=== PATIENT | female | born 1940 | race Caucasian/White ===

== ENCOUNTER → 2018-03-21 13:06 | Outpatient (CLI) | payer MEDICARE, SELFPAY | PROVIDERS: Family Provider Family Medicine; PCP Family Medicine; Visit Provider Internal Medicine | DX: I87.312 Chronic venous hypertension (idiopathic) with ulcer of left lower extremity (principal); L97.922 Non-pressure chronic ulcer of unspecified part of left lower leg with fat layer exposed; R53.1 Weakness | CPT/HCPCS: 99213 ==

== ENCOUNTER → 2018-04-04 14:11 | Outpatient (CLI) | payer MEDICARE, SELFPAY ==
--- NOTE | 2018-04-04 | OV.WND_ITS ---
Progress Note Details Patient Name: Deja No Patient Number: [id number] PatientPatientDate: 04/04/2018 Clinician: Rosalind Romero Physician / Spinning Frame Changer: Virgilio Ortega SUBJECTIVE Chief Complaint This information was obtained from the patient Wound on left lower leg. Allergies metformin, Sulfa (Sulfonamide Antibiotics) (Severity: Moderate, Reaction: Hives ), glimepiride HPI This information was obtained from the patient 04/04/18. Seen by Dr. Ortega. The patient and her report recurrence of drainage from the recently healed, chronic left lower leg venous ulcer that was first noticed about 2 days ago. There's not report of pain or increased leg swelling and they've been changing the dressing every 3 days. The ulcer is though to be related to a remote history of vein surgery for varicose veins which she still suffers from. 03/21/18. Seen by Dr. Ortega. The patient does not report pain nor significant drainage associated with the chronic left lower leg venous ulcer since her last visit. 02/28/18. Seen by Dr. Ortega. The patient does not report pain nor significant drainage associated with the chronic left lower leg venous ulcer since her last visit. 02/17/18. Seen by Dr. Ortega. The patient does not report pain nor significant drainage associated with the chronic left lower leg venous ulcer since her last visit. 02/07/18. Seen by Dr. Ortega. The patient does not report pain or swelling associated with chronic left lower venous ulcer however there is some yellow drainage on the overlying dressing noted today. The patient's ulcer has been managed palliatively over the past year and originally is felt to be due to her history of vein surgery many years ago. 01/17/18. Seen by Dr. Ortega. The patient does not report pain nor significant drainage associated with the chronic left lower leg venous ulcer since her last visit. 12/27/17. Seen by Dr. Ortega. The patient does not report pain nor significant drainage associated with the chronic left lower leg venous ulcer since her last visit. 12/06/17. Seen by Dr. Ortega. The patient does not report pain nor significant drainage associated with the chronic left lower leg venous ulcer since her last visit. 11/14/17. Seen by Chepe Villa PA-C. The patient reports no increase in drainage from her left leg venous ulcers. 10/25/17. Seen by Dr. Ortega. The patient does not report pain nor significant drainage associated with the chronic left lower leg venous ulcer since her last visit. Of note, we are managing the ulcer and a palliative manner as it has shown little potential for healing of the past few months. 10/08/17. Seen by Dr. Ortega. The patient does not report pain nor significant drainage associated with the chronic left lower leg venous ulcer since her last visit. 10/03/17. Seen by Dr. Ortega. The patient completed her course of doxycycline without reported adverse side effects and feels that the cellulitis associated with chronic left lower leg venous ulcer has improved over the past few days. 09/25/17. Seen by Dr. Ortega. The patient reports some mild discomfort associated with the chronic left lower leg venous ulcer and her wound culture from the last visit grew pansensitive MSSA. She is not currently on antibiotics for this and does not report fevers or feeling unwell. 09/20/17. Seen by Dr. Ortega. The patient's is concerned that the chronic left lower leg venous ulcer has started to enlarge and is now draining over the past few days. The patient does not report pain at the site nor fevers or feeling unwell in general. This ulcer's occurred at the site of previous vein stripping and has been managed palliatively over the past year as it is unlikely to heal with her current wound care measures. Surgical repair such as a skin graft has been offered however the patient does not wish to go this route. 08/30/17. Seen by Dr. Ortega. The patient does not report pain or increased drainage associated with the chronic left lower leg venous ulcer since her last visit. 08/16/17. Seen by Chepe Villa PA-C. The patient reports no increase in drainage from her left lower leg ulcer. 08/06/17. Seen by Chepe Villa PA-C. The patient reports no change his her ulcer's appearance or drainage since her last evaluation. 07/30/17. Seen by Chepe Villa PA-C. The patient reports no increase in drainage from her left lower leg ulcer. 07/23/17. Seen by Dr. Ortega. The patient does not report pain or increased drainage associated with the chronic left lower leg venous ulcer since her last visit and she's tolerated negative pressure wound therapy without difficulty. She also does not report any problems regarding the compression wrap that's treating left lower leg chronic venous hypertension. 07/19/17. Seen Dr. Ortega. The patient does not report pain nor drainage associated with the since her last visit. Also, she does not report any problems regarding that wound vac. 07/16/17. Seen Dr. Ortega. The patient does not report pain nor drainage associated with the since her last visit. And she does not report any problems regarding that wound vac. 07/12/17. Seen Dr. Ortega. The patient does not report pain nor drainage associated with the since her last visit. And she does not report any problems regarding that wound vac. 07/09/17. Seen by Dr. Ortega. The patient is not report pain or significant drainage associated with the left lower leg venous ulcer since her last visit. 07/05/17. Seen by Dr. Ortega. The patient does not report pain associated with the chronic left lower leg venous ulcer nor does she report any problems with the compression wrap was applied last week. Her wound culture grew Staph caprae without sensitivities yet being reported. 07/02/17. Seen by Dr. Ortega. The patient does not report pain associated with the chronic left lower leg venous ulcer nor does she report any problems with the compression wrap was applied last week. 06/28/17. Seen by Dr. Ortega. The patient does not report significant pain nor increased drainage associated with the chronic left lower leg venous ulcer. 06/21/17. Seen by Dr. Ortega. The patient does not report significant pain nor increased drainage associated with the chronic left lower leg venous ulcer and she tolerated her compression wrap that's treating chronic venous hypertension in the leg without difficulty. 06/18/17. Seen by Dr. Ortega. She also does not report pain nor significant drainage associated with this ulcer. 06/14/17. Seen by Dr. Ortega. The patient does not report any additional bleeding associated with the chronic left lower leg venous ulcer following the acute hemorrhage noted at her last visit. She also does not report pain nor significant drainage associated with this ulcer. 06/11/17. Seen by Dr. Ortega. The patient does not report significant pain or increased drainage associated with the chronic left lower leg venous ulcer since her last visit. 06/07/17. Seen by Dr. Ortega. The patient reports some increased generalized myalgias and states that the left lower leg may be more painful than last week however she does not report fevers or increased leg swelling. She tolerated the wound VAC without difficulty and has completed her course of Augmentin that was treating cellulitis associated with the chronic left lower leg venous ulcer. 06/04/17. Seen by Dr. Ortega. The patient does not report pain or significant drainage associated with the chronic left lower leg venous ulcer and she's now on Augmentin for the recent Staph caprae positive wound culture which has been grown on a number of occasions previously. She does not report adverse side effects of the Augmentin and her feels the redness and leg swelling have improved since her last visit. 05/31/17. Seen by Dr. Ortega. The patient does not report pain or significant drainage or pain associated with the chronic left lateral lower leg venous ulcer over the past week nor does she report fevers or feeling unwell. Her last culture was 2 months ago which grew Staph caprae without sensitivities reported. 05/24/17. Seen by Dr. Ortega. The patient's does not report pain or significant drainage associated with the chronic left lateral lower leg venous ulcer over the past week. Her MRI shows some associated with the chronic subcutaneous tissue however no obvious abscesses for osteomyelitis. She continues to wear a compression stocking to address the edema in the leg as well. 05/17/17. Seen by Dr. Ortega. The patient reports some continued pain associated with the left lateral lower leg venous ulcer over the past few days. Home health has been applying topical gentamicin to the ulcer and she does not report fevers or feeling unwell. She does note there's also some discomfort along the medial side of the left lower leg. 05/10/17. Seen by Dr. Ortega. The patient continues to report some discomfort associated with the the left lower leg venous ulcer since her last visit and has tolerated antibiotics which are treating a wound infection without reporting adverse side effects. 05/03/17. Seen by Dr. Ortega. The patient's reports purulent drainage from a new left lower leg ulcer that is located between the 2 recent nonpressure ulcers that we have been managing on the lateral side the leg. The patient does not report pain nor fevers however she does state that she had 2 vein stripping procedures many years ago and both legs. She also did not tolerate the compression stockings that they purchased to treat the left leg chronic venous hypertension. 04/29/17. Seen by Chepe Villa PA-C. The patient presents urgently today for evaluation of a new draining wound on her left anterior leg. It was noted to be draining purulent material which began today and has constantly drained. 04/26/17. Seen by Chepe Villa PA-C. The patient has received her new [employer] compression garments and reports that they are too small and too tight. She was measured in clinic and they were custom constructed. 04/16/17. Seen by Dr. Ortega. The patient does not report pain or significant drainage associated with the chronic right lower leg venous ulcers and she's tolerating the compression wrap without difficulty. 04/11/17. Seen by Dr. Ortega. The patient does not report pain nor increased drainage associated with the 2 left lower leg venous ulcers since her last visit and she' s tolerating compression therapy without difficulty. 04/05/17. Seen by Dr. Ortega. The patient does not report any new issues regarding her chronic left lower leg venous ulcers. 03/29/17. Seen by Dr. Ortega. The patient does not report pain nor increased drainage associated with the 2 left lower leg venous ulcers since her last visit. She's tolerating negative pressure wound therapy without difficulty. 03/22/17. Seen by Dr. Ortega. The patient does not report problems regarding her wound VAC that has been placed on the chronic left lower leg venous ulcers. 03/15/17. Seen by Dr. Ortega. The patient does not report problems regarding her wound VAC that has been placed on the chronic left lower leg venous ulcers. She does not report pain associated with ulcers and is wearing her compression stocking to address the chronic lower leg edema. 03/13/17. Seen by Dr. Ortega. The patient does not report pain nor significant drainage associated with the chronic left lower leg nonpressure ulcers since her last visit. 03/08/17. The patient does not report pain nor significant drainage associated with the left lower leg nonpressure ulcer over the past week. She's wearing her compression stocking as recommended however it appears the top edge was rolled and constricted the venous return resulting in increased leg edema. 03/01/17. The patient does not report pain nor significant drainage associated with the left lower leg nonpressure ulcers and she continues on antibiotics for the strep positive culture taken from the distal ulcer at her last visit. She is also now taking a diuretic to help address his significant leg edema and has been wearing a compression stocking as recommended. 02/22/17. Seen by Dr. Ortega. The patient fell earlier this week and injured her face and right eye. She's quite distressed today and arrived without the wound vac that's treating the chronic left lower leg non-pressure ulcer in place. She does not report increased pain or drainage from the site but notes the distal ulcer previously healed has now recurred. She feels her legs are quite swollen and has not been able to wear her compression stockings. 02/08/17. Seen by Dr. Ortega. The patient does not report pain or drainage associated with the chronic left lower leg nonpressure ulcers nor does she report any problems with the wound VAC that's treating the proximal ulcer since last week.. 02/01/17. Seen by Dr. Ortega. The patient does not report pain or drainage associated with the chronic left lower leg nonpressure ulcers nor does she report any problems with the wound VAC that's treating the proximal ulcer. She took her last dose of doxycycline for the Strep A positive wound culture this morning and does not report adverse side effects. 01/25/17. Seen by Dr. Ortega. The patient does not report pain or drainage associated with the chronic left lower leg nonpressure ulcer nor does she report any problems with the wound VAC. She's completed a course of doxycycline at [facility] in the recent group B streptococcus positive wound culture. Of note, the staff report a new small lesion distal to the original one on the lateral aspect of the left lower leg. 01/18/17. Seen by Dr. Ortega. The patient does not report pain nor significant drainage in the wound VAC associated with the chronic left lower leg nonpressure ulcer.She continues on doxycycline the recent group A streptococcus positive wound culture without reporting adverse side effects. 01/16/17. Seen by Dr. Ortega. The patient reports minimal pain and drainage associated with the painful left lateral lower leg nonpressure ulcer over the past few days and she continues on antibiotics for the recent group A Strep positive culture. 01/10/17. Seen by Dr. Ortega. The patient reports decreased pain and drainage associated with the painful left lateral lower leg nonpressure ulcer over the past few days. Her culture from the last visit grew group A streptococcus. She does not report fevers nor feeling unwell in general. 01/03/17. Seen by Dr. Ortega. The patient returns to clinic with a painful left lateral lower leg non-pressure ulcer that she states started as a blister about one month ago. She report drainage and redness in the periwound area but feels this has improved somewhat since starting on Keflex a few days ago. She does not believe a culture was taken and she does not report fevers, feeling unwell, nor adverse side effects from the antibiotic. 08/21/16 Seen by Chepe Villa PA-C. The patient reports no drainage from her sacral pressure ulcer site since her last visit. She would like to pursue some kind of therapy for her lower extremity chronic venous hypertension that does not involve compression or elevation. 08/16/16. Seen by Dr. Ortega. The patient's new to our clinic and is rather difficult to elicit a coherent history. She reportedly has some erythema over the sacrum and was referred due to concern for a possible pressure ulcer. She does not report pain at the site nor drainage and has not been actively offloading the site to date. The patient state's she's quite active and mobilizes frequently throughout the day despite being limited due to severe kyphosis. She's actually more concerned about chronic bilateral lower leg edema that's been progressive over the past year however she does not report any blistering, drainage, or open wounds. Past Medical History This information was obtained from the patient Patient has a medical history of: Hypothyroidism Hypertension Degenerative joint disease Varicose Veins Hyperlipidemia B12 deficiency Whitt's esophagus Restless leg syndrome Complaints and Symptoms This information was obtained from the patient Patient complains of: General Notes: I have reviewed and concur with the Review of Systems and Past Family Social History documents completed by the clinician, I have reviewed and concur with the Wound Assessment document completed by the clinician Cardiovascular (Central/Peripheral): Lower extremity (leg) swelling Ear/Nose/Mouth/Throat: Hearing Loss / Aid Integumentary (Hair/Skin/Nails): Open Sore Musculoskeletal: Assistive Devices, Deformities, Muscle Pain Prior Wound History: Drainage, Erythema, Pain Psychiatric: Anxiety, Memory Loss Patient denies complaints or symptoms related to: Cardiovascular (Central): Irregular heart beat Cardiovascular (Central/Peripheral): Intermittent Claudication, Lower extremity (leg) resting pain Constitutional Symptoms (General Health): Chills, Fever Gastrointestinal (GI): Nausea / Vomiting, Stomach/abdominal pain Genitourinary (): Urinary Incontinence Hematologic/Lymphatic: Bleeding / Clotting Disorders, Bleeding Tendency Neurological: Loss of Protective Sensation Prior Wound History: Bleeding Psychiatric: Depression Respiratory: Oxygen Use, Shortness of Breath OBJECTIVE Constitutional BP elevated; Afebrile; Alert and in no distress. Frail appearing. Height/Length : 63 in (160.02 cm), Weight: 105.7 lbs (48.05 kgs), BMI: 18.7, Temperature: 97.7 ?F (36.5 ?C), Pulse: 61 bpm, Respiratory Rate: 18 breaths/min, Blood Pressure: 142/79 mmHg, Capillary Blood Glucose: 98 mg/dl, Pulse Oximetry: 97 %. Vital Signs Notes: Glucose per patient Respiratory: No respiratory distress. Even respirations and without use of accessory muscles.. Cardiovascular: 1+ left lower extremity edema. Integumentary (Hair, Skin) Mild periwound erythema without warmth. Refer to appropriate clinician wound documentation for this visit; left lower leg ulcer extends to subcut with base partially covered with pink granulation, remainder fibrin and slough. Wound #3 Left, Proximal, Lateral Leg is a chronic Full Thickness Venous Ulcer and has received a status of Not Healed. Subsequent wound encounter measurements are 0.7cm length x 0.5cm width x 0.3cm depth, with an area of 0.35 sq cm and a volume of 0.105 cubic cm. No tunneling has been noted. No sinus tract has been noted. No undermining has been noted. There is a scant amount of serous drainage noted which has no odor. The patient reports a wound pain of level 0/10. The wound margin is attached. Wound bed has No epithelialization, No eschar, Yes slough, Yes pink, firm granulation. The periwound skin moisture is normal. The periwound skin exhibited: Edema, Hemosiderosis. The periwound skin did not exhibit: Brawny Induration, Excoriation, Induration, Callus, Crepitus, Fluctuance, Friable, Rash, Atrophie Ferney, Cyanosis, Ecchymosis, Erythema, Pallor, Rubor. The temperature of the periwound skin is WNL. Periwound skin does not exhibit signs or symptoms of infection. Local Pulse is Palpable. General Notes: satellite wound is 0.2x0.1x0.1 Neurological: Cranial nerves grossly intact with symmetric function normal by informal observation.. ASSESSMENT Active Problems ICD-10 (Encounter Diagnosis) L97.922 - Non-pressure chronic ulcer of unspecified part of left lower leg with fat layer exposed (Encounter Diagnosis) L08.9 - Local infection of the skin and subcutaneous tissue, unspecified (Encounter Diagnosis) I87.312 - Chronic venous hypertension (idiopathic) with ulcer of left lower extremity PLAN Wound Orders: Wound #3 Left, Proximal, Lateral Leg Cleanser Cleanse Wound: - Normal saline and gauze. May use distilled water at home. May Shower. - Please keep covered in shower until you feel it is closed. Topical Treatments Antibiotic/Antimicrobial Ointment/Cream. - Gentamicin to wound bed. Dressings Cover and secure with: - Bordered dressing. May use bordered band aid. Nexcare Active is a preferred bandage to use. Change Dressing: - Twice a week. Additional Orders: Compression/Edema Control Knee-high gradient compression stockings. - Tetragrip E to both legs. On in the am, off at night. Please purchase personal compression stockings, light compression (20-30mmHg) from your local pharmacy. Follow-Up Appointments Return Appointment: - - One week. Scribing Attestation I attest, as the nurse, that I scribed these orders for the physician. Laboratory: Bacteria identified in Wound by Culture - #3 left leg I've reviewed the clinician's documentation and agree with the evaluation and plan as written. Also, the left lower leg venous ulcer has recurred and there's likely a mild, superficial infection. They'll start treating with topical gentamicin applied with dressing changes and we'll consider starting an oral antibiotic pending the culture results. She'll also continue t wear her compression stocking to treat chronic venous hypertension. Electronic Signature(s) Signed By: Date: Virgilio Ortega MD 04/06/2018 14:27:05 Entered By: Virgilio Ortega on 04/04/2018 15:13:10
== END ==
PROVIDERS: Family Provider Family Medicine; PCP Family Medicine; Visit Provider Internal Medicine
DX: I87.312 Chronic venous hypertension (idiopathic) with ulcer of left lower extremity (principal); L97.922 Non-pressure chronic ulcer of unspecified part of left lower leg with fat layer exposed; L08.9 Local infection of the skin and subcutaneous tissue, unspecified
CPT/HCPCS: 87070; 87075; 87077; 87147; 87186; 87205; 99212

== ENCOUNTER → 2018-04-11 15:28 | Outpatient (CLI) | payer MEDICARE, SELFPAY ==
--- NOTE | 2018-04-11 | OV.WND_ITS ---
Progress Note Details Patient Name: Deja No Patient Number: [id number] PatientPatientDate: 04/11/2018 Clinician: Anita Rodrigues Clinician Cosigner: Cyndi Ramirez Physician / Print Line Feeder: Michael Villa SUBJECTIVE Chief Complaint This information was obtained from the patient Wound on left lower leg. Allergies metformin, Sulfa (Sulfonamide Antibiotics) (Severity: Moderate, Reaction: Hives ), glimepiride HPI This information was obtained from the patient 04/11/18. Seen by Chepe Villa PA-C. The patient reports no increase in pain or drainage from her left lower leg ulcer. 04/04/18. Seen by Dr. Ortega. The patient and her report recurrence of drainage from the recently healed, chronic left lower leg venous ulcer that was first noticed about 2 days ago. There's not report of pain or increased leg swelling and they've been changing the dressing every 3 days. The ulcer is though to be related to a remote history of vein surgery for varicose veins which she still suffers from. 03/21/18. Seen by Dr. Ortega. The patient does not report pain nor significant drainage associated with the chronic left lower leg venous ulcer since her last visit. 02/28/18. Seen by Dr. Ortega. The patient does not report pain nor significant drainage associated with the chronic left lower leg venous ulcer since her last visit. 02/17/18. Seen by Dr. Ortega. The patient does not report pain nor significant drainage associated with the chronic left lower leg venous ulcer since her last visit. 02/07/18. Seen by Dr. Ortega. The patient does not report pain or swelling associated with chronic left lower venous ulcer however there is some yellow drainage on the overlying dressing noted today. The patient's ulcer has been managed palliatively over the past year and originally is felt to be due to her history of vein surgery many years ago. 01/17/18. Seen by Dr. Ortega. The patient does not report pain nor significant drainage associated with the chronic left lower leg venous ulcer since her last visit. 12/27/17. Seen by Dr. Ortega. The patient does not report pain nor significant drainage associated with the chronic left lower leg venous ulcer since her last visit. 12/06/17. Seen by Dr. Ortega. The patient does not report pain nor significant drainage associated with the chronic left lower leg venous ulcer since her last visit. 11/14/17. Seen by Chepe Villa PA-C. The patient reports no increase in drainage from her left leg venous ulcers. 10/25/17. Seen by Dr. Ortega. The patient does not report pain nor significant drainage associated with the chronic left lower leg venous ulcer since her last visit. Of note, we are managing the ulcer and a palliative manner as it has shown little potential for healing of the past few months. 10/08/17. Seen by Dr. Ortega. The patient does not report pain nor significant drainage associated with the chronic left lower leg venous ulcer since her last visit. 10/03/17. Seen by Dr. Ortega. The patient completed her course of doxycycline without reported adverse side effects and feels that the cellulitis associated with chronic left lower leg venous ulcer has improved over the past few days. 09/25/17. Seen by Dr. Ortega. The patient reports some mild discomfort associated with the chronic left lower leg venous ulcer and her wound culture from the last visit grew pansensitive MSSA. She is not currently on antibiotics for this and does not report fevers or feeling unwell. 09/20/17. Seen by Dr. Ortega. The patient's is concerned that the chronic left lower leg venous ulcer has started to enlarge and is now draining over the past few days. The patient does not report pain at the site nor fevers or feeling unwell in general. This ulcer's occurred at the site of previous vein stripping and has been managed palliatively over the past year as it is unlikely to heal with her current wound care measures. Surgical repair such as a skin graft has been offered however the patient does not wish to go this route. 08/30/17. Seen by Dr. Ortega. The patient does not report pain or increased drainage associated with the chronic left lower leg venous ulcer since her last visit. 08/16/17. Seen by Chepe Villa PA-C. The patient reports no increase in drainage from her left lower leg ulcer. 08/06/17. Seen by Chepe Villa PA-C. The patient reports no change his her ulcer's appearance or drainage since her last evaluation. 07/30/17. Seen by Chepe Villa PA-C. The patient reports no increase in drainage from her left lower leg ulcer. 07/23/17. Seen by Dr. Ortega. The patient does not report pain or increased drainage associated with the chronic left lower leg venous ulcer since her last visit and she's tolerated negative pressure wound therapy without difficulty. She also does not report any problems regarding the compression wrap that's treating left lower leg chronic venous hypertension. 07/19/17. Seen Dr. Ortega. The patient does not report pain nor drainage associated with the since her last visit. Also, she does not report any problems regarding that wound vac. 07/16/17. Seen Dr. Ortega. The patient does not report pain nor drainage associated with the since her last visit. And she does not report any problems regarding that wound vac. 07/12/17. Seen Dr. Ortega. The patient does not report pain nor drainage associated with the since her last visit. And she does not report any problems regarding that wound vac. 07/09/17. Seen by Dr. Ortega. The patient is not report pain or significant drainage associated with the left lower leg venous ulcer since her last visit. 07/05/17. Seen by Dr. Ortega. The patient does not report pain associated with the chronic left lower leg venous ulcer nor does she report any problems with the compression wrap was applied last week. Her wound culture grew Staph caprae without sensitivities yet being reported. 07/02/17. Seen by Dr. Ortega. The patient does not report pain associated with the chronic left lower leg venous ulcer nor does she report any problems with the compression wrap was applied last week. 06/28/17. Seen by Dr. Ortega. The patient does not report significant pain nor increased drainage associated with the chronic left lower leg venous ulcer. 06/21/17. Seen by Dr. Ortega. The patient does not report significant pain nor increased drainage associated with the chronic left lower leg venous ulcer and she tolerated her compression wrap that's treating chronic venous hypertension in the leg without difficulty. 06/18/17. Seen by Dr. Ortega. She also does not report pain nor significant drainage associated with this ulcer. 06/14/17. Seen by Dr. Ortega. The patient does not report any additional bleeding associated with the chronic left lower leg venous ulcer following the acute hemorrhage noted at her last visit. She also does not report pain nor significant drainage associated with this ulcer. 06/11/17. Seen by Dr. Ortega. The patient does not report significant pain or increased drainage associated with the chronic left lower leg venous ulcer since her last visit. 06/07/17. Seen by Dr. Ortega. The patient reports some increased generalized myalgias and states that the left lower leg may be more painful than last week however she does not report fevers or increased leg swelling. She tolerated the wound VAC without difficulty and has completed her course of Augmentin that was treating cellulitis associated with the chronic left lower leg venous ulcer. 06/04/17. Seen by Dr. Ortega. The patient does not report pain or significant drainage associated with the chronic left lower leg venous ulcer and she's now on Augmentin for the recent Staph caprae positive wound culture which has been grown on a number of occasions previously. She does not report adverse side effects of the Augmentin and her feels the redness and leg swelling have improved since her last visit. 05/31/17. Seen by Dr. Ortega. The patient does not report pain or significant drainage or pain associated with the chronic left lateral lower leg venous ulcer over the past week nor does she report fevers or feeling unwell. Her last culture was 2 months ago which grew Staph caprae without sensitivities reported. 05/24/17. Seen by Dr. Ortega. The patient's does not report pain or significant drainage associated with the chronic left lateral lower leg venous ulcer over the past week. Her MRI shows some associated with the chronic subcutaneous tissue however no obvious abscesses for osteomyelitis. She continues to wear a compression stocking to address the edema in the leg as well. 05/17/17. Seen by Dr. Ortega. The patient reports some continued pain associated with the left lateral lower leg venous ulcer over the past few days. Home health has been applying topical gentamicin to the ulcer and she does not report fevers or feeling unwell. She does note there's also some discomfort along the medial side of the left lower leg. 05/10/17. Seen by Dr. Ortega. The patient continues to report some discomfort associated with the the left lower leg venous ulcer since her last visit and has tolerated antibiotics which are treating a wound infection without reporting adverse side effects. 05/03/17. Seen by Dr. Ortega. The patient's reports purulent drainage from a new left lower leg ulcer that is located between the 2 recent nonpressure ulcers that we have been managing on the lateral side the leg. The patient does not report pain nor fevers however she does state that she had 2 vein stripping procedures many years ago and both legs. She also did not tolerate the compression stockings that they purchased to treat the left leg chronic venous hypertension. 04/29/17. Seen by Chepe Villa PA-C. The patient presents urgently today for evaluation of a new draining wound on her left anterior leg. It was noted to be draining purulent material which began today and has constantly drained. 04/26/17. Seen by Chepe Villa PA-C. The patient has received her new [employer] compression garments and reports that they are too small and too tight. She was measured in clinic and they were custom constructed. 04/16/17. Seen by Dr. Ortega. The patient does not report pain or significant drainage associated with the chronic right lower leg venous ulcers and she's tolerating the compression wrap without difficulty. 04/11/17. Seen by Dr. Ortega. The patient does not report pain nor increased drainage associated with the 2 left lower leg venous ulcers since her last visit and she' s tolerating compression therapy without difficulty. 04/05/17. Seen by Dr. Ortega. The patient does not report any new issues regarding her chronic left lower leg venous ulcers. 03/29/17. Seen by Dr. Ortega. The patient does not report pain nor increased drainage associated with the 2 left lower leg venous ulcers since her last visit. She's tolerating negative pressure wound therapy without difficulty. 03/22/17. Seen by Dr. Ortega. The patient does not report problems regarding her wound VAC that has been placed on the chronic left lower leg venous ulcers. 03/15/17. Seen by Dr. Ortega. The patient does not report problems regarding her wound VAC that has been placed on the chronic left lower leg venous ulcers. She does not report pain associated with ulcers and is wearing her compression stocking to address the chronic lower leg edema. 03/13/17. Seen by Dr. Ortega. The patient does not report pain nor significant drainage associated with the chronic left lower leg nonpressure ulcers since her last visit. 03/08/17. The patient does not report pain nor significant drainage associated with the left lower leg nonpressure ulcer over the past week. She's wearing her compression stocking as recommended however it appears the top edge was rolled and constricted the venous return resulting in increased leg edema. 03/01/17. The patient does not report pain nor significant drainage associated with the left lower leg nonpressure ulcers and she continues on antibiotics for the strep positive culture taken from the distal ulcer at her last visit. She is also now taking a diuretic to help address his significant leg edema and has been wearing a compression stocking as recommended. 02/22/17. Seen by Dr. Ortega. The patient fell earlier this week and injured her face and right eye. She's quite distressed today and arrived without the wound vac that's treating the chronic left lower leg non-pressure ulcer in place. She does not report increased pain or drainage from the site but notes the distal ulcer previously healed has now recurred. She feels her legs are quite swollen and has not been able to wear her compression stockings. 02/08/17. Seen by Dr. Ortega. The patient does not report pain or drainage associated with the chronic left lower leg nonpressure ulcers nor does she report any problems with the wound VAC that's treating the proximal ulcer since last week.. 02/01/17. Seen by Dr. Ortega. The patient does not report pain or drainage associated with the chronic left lower leg nonpressure ulcers nor does she report any problems with the wound VAC that's treating the proximal ulcer. She took her last dose of doxycycline for the Strep A positive wound culture this morning and does not report adverse side effects. 01/25/17. Seen by Dr. Ortega. The patient does not report pain or drainage associated with the chronic left lower leg nonpressure ulcer nor does she report any problems with the wound VAC. She's completed a course of doxycycline at [facility] in the recent group B streptococcus positive wound culture. Of note, the staff report a new small lesion distal to the original one on the lateral aspect of the left lower leg. 01/18/17. Seen by Dr. Ortega. The patient does not report pain nor significant drainage in the wound VAC associated with the chronic left lower leg nonpressure ulcer.She continues on doxycycline the recent group A streptococcus positive wound culture without reporting adverse side effects. 01/16/17. Seen by Dr. Ortega. The patient reports minimal pain and drainage associated with the painful left lateral lower leg nonpressure ulcer over the past few days and she continues on antibiotics for the recent group A Strep positive culture. 01/10/17. Seen by Dr. Ortega. The patient reports decreased pain and drainage associated with the painful left lateral lower leg nonpressure ulcer over the past few days. Her culture from the last visit grew group A streptococcus. She does not report fevers nor feeling unwell in general. 01/03/17. Seen by Dr. Ortega. The patient returns to clinic with a painful left lateral lower leg non-pressure ulcer that she states started as a blister about one month ago. She report drainage and redness in the periwound area but feels this has improved somewhat since starting on Keflex a few days ago. She does not believe a culture was taken and she does not report fevers, feeling unwell, nor adverse side effects from the antibiotic. 08/21/16 Seen by Chepe Villa PA-C. The patient reports no drainage from her sacral pressure ulcer site since her last visit. She would like to pursue some kind of therapy for her lower extremity chronic venous hypertension that does not involve compression or elevation. 08/16/16. Seen by Dr. Ortega. The patient's new to our clinic and is rather difficult to elicit a coherent history. She reportedly has some erythema over the sacrum and was referred due to concern for a possible pressure ulcer. She does not report pain at the site nor drainage and has not been actively offloading the site to date. The patient state's she's quite active and mobilizes frequently throughout the day despite being limited due to severe kyphosis. She's actually more concerned about chronic bilateral lower leg edema that's been progressive over the past year however she does not report any blistering, drainage, or open wounds. Family History This information was obtained from the patient Diabetes - Mother, Father, Sibling, Child, Heart Disease - Mother, Father, Hypertension - Mother, Father, Sibling, Mental Illness - Child Social History This information was obtained from the patient Former smoker, Caffeine Use - one cup a day, Children - 2, Lives in - private home with , Marital Status - , Mental health concerns, Tobacco Use - former Past Medical History This information was obtained from the patient Patient has a medical history of: Hypothyroidism Hypertension Degenerative joint disease Varicose Veins Hyperlipidemia B12 deficiency Whitt's esophagus Restless leg syndrome Complaints and Symptoms This information was obtained from the patient Patient complains of: General Notes: I have reviewed and concur with the Review of Systems and Past Family Social History documents completed by the clinician, I have reviewed and concur with the Wound Assessment document completed by the clinician Cardiovascular (Central/Peripheral): Lower extremity (leg) swelling Ear/Nose/Mouth/Throat: Hearing Loss / Aid Integumentary (Hair/Skin/Nails): Open Sore Musculoskeletal: Assistive Devices, Deformities, Muscle Pain Prior Wound History: Drainage, Erythema, Pain Psychiatric: Anxiety, Memory Loss Patient denies complaints or symptoms related to: Cardiovascular (Central): Irregular heart beat Cardiovascular (Central/Peripheral): Intermittent Claudication, Lower extremity (leg) resting pain Constitutional Symptoms (General Health): Chills, Fever Gastrointestinal (GI): Nausea / Vomiting, Stomach/abdominal pain Genitourinary (): Urinary Incontinence Hematologic/Lymphatic: Bleeding / Clotting Disorders, Bleeding Tendency Neurological: Loss of Protective Sensation Prior Wound History: Bleeding Psychiatric: Depression Respiratory: Oxygen Use, Shortness of Breath OBJECTIVE Constitutional Vital signs reviewed and noted. Well developed, lucid, and in no acute distress. . Height/Length: 63 in (160.02 cm), Weight: 100.6 lbs (45.73 kgs), BMI: 17.8, Temperature: 97.6 ?F (36.44 ?C), Pulse: 58 bpm, Respiratory Rate: 16 breaths/min, Blood Pressure: 137/77 mmHg, Pulse Oximetry: 95 %. Ears, Nose, Mouth, and Throat: Grossly intact. Respiratory: No respiratory distress. Even respirations and without use of accessory muscles.. Integumentary (Hair, Skin) Refer to appropriate clinician wound documentation for this visit; ulcer extends to subcutaneous fat layer. . Wound #3 Left, Proximal, Lateral Leg is a chronic Full Thickness Venous Ulcer and has received a status of Not Healed. Subsequent wound encounter measurements are 0.1cm length x 0.1cm width x 0.1cm depth, with an area of 0.01 sq cm and a volume of 0.001 cubic cm. No tunneling has been noted. No sinus tract has been noted. No undermining has been noted. There is a scant amount of serous drainage noted which has no odor. The patient reports a wound pain of level 0/10. The wound margin is attached. Wound bed has No epithelialization, No eschar, Yes slough, No granulation. The periwound skin moisture is normal. The periwound skin exhibited: Edema, Hemosiderosis. The periwound skin did not exhibit: Brawny Induration, Excoriation, Induration, Callus, Crepitus, Fluctuance, Friable, Rash, Atrophie Ira, Cyanosis, Ecchymosis, Erythema, Pallor, Rubor. The temperature of the periwound skin is WNL. Periwound skin does not exhibit signs or symptoms of infection. Local Pulse is Palpable. General Notes: Covered in dried drainage/slough. Psychiatric: Judgement and insight: Normal affect with normal thought pattern. Alert and oriented 3/3. Memory grossly intact.. Normal affect. Mood appropriate.. ASSESSMENT Active Problems ICD-10 (Encounter Diagnosis) L97.922 - Non-pressure chronic ulcer of unspecified part of left lower leg with fat layer exposed (Encounter Diagnosis) I87.312 - Chronic venous hypertension (idiopathic) with ulcer of left lower extremity PLAN Wound Orders: Wound #3 Left, Proximal, Lateral Leg Anesthetic Topical Xylocaine to wound bed. - Lidocaine in clinic only. Cleanser Cleanse Wound: - Normal saline and gauze. May use distilled water at home. May Shower. - Please keep covered in shower until you feel it is closed. Topical Treatments Antibiotic/Antimicrobial Ointment/Cream. - Gentamicin to wound bed. Dressings Cover and secure with: - Bordered dressing. May use bordered band aid. Nexcare Active is a preferred bandage to use. Change Dressing: - Saturday night OR Saturday morning. Additional Orders: Compression/Edema Control Knee-high gradient compression stockings. - Tetragrip E to both legs. On in the am, off at night. Please purchase personal compression stockings, light compression (20-30mmHg) from your local pharmacy. Follow-Up Appointments Return Appointment: - - One week. Other information: If you develop fever, chills, increased pain, drainage, redness or swelling please call our office. If after hours, respond to the ER. Should you experience any significant changes in your wound(s) or have any questions regarding your home care instructions please contact the wound center @ [phone]. If after hours, contact your primary care physician or go to the hospital emergency room. Scribing Attestation I attest, as the nurse, that I scribed these orders for the physician. I've reviewed the clinician's documentation and agree with the evaluation and plan as written. The patient's condition continues to be medically complex requiring continued and regular specialty wound care clinic visits. To that end we will continue with routine dressing changes and in clinic medical assessments including surveillance for bacterial infection as well as routine debridements of non-viable tissue when needed. Electronic Signature(s) Signed By: Date: Chepe Villa 04/14/2018 22:08:02 Entered By: Chepe Villa on 04/14/2018 21:12:42
== END ==
PROVIDERS: Family Provider Family Medicine; PCP Family Medicine; Visit Provider Physician Assistant
DX: I87.312 Chronic venous hypertension (idiopathic) with ulcer of left lower extremity (principal); L97.922 Non-pressure chronic ulcer of unspecified part of left lower leg with fat layer exposed
CPT/HCPCS: 99213

== ENCOUNTER → 2018-04-18 13:45 | Outpatient (CLI) | payer MEDICARE, SELFPAY ==
--- NOTE | 2018-04-18 | OV.WND_ITS ---
Progress Note Details Patient Name: Deja No Patient Number: [id number] PatientPatientDate: 04/18/2018 Clinician: Rosalind Romero Clinician Cosigner: Yaritza Loredo Physician / Tooth Cutter Clutch: Virgilio Ortega SUBJECTIVE Chief Complaint This information was obtained from the patient Wound on left lower leg. Allergies metformin, Sulfa (Sulfonamide Antibiotics) (Severity: Moderate, Reaction: Hives ), glimepiride HPI This information was obtained from the patient 04/18/18. Seen by Dr. Ortega. The patient does not report pain nor significant drainage associated with the chronic left lower leg venous ulcer since her last visit. 04/11/18. Seen by Chepe Villa PA-C. The patient reports no increase in pain or drainage from her left lower leg ulcer. 04/04/18. Seen by Dr. Ortega. The patient and her report recurrence of drainage from the recently healed, chronic left lower leg venous ulcer that was first noticed about 2 days ago. There's not report of pain or increased leg swelling and they've been changing the dressing every 3 days. The ulcer is though to be related to a remote history of vein surgery for varicose veins which she still suffers from. 03/21/18. Seen by Dr. Ortega. The patient does not report pain nor significant drainage associated with the chronic left lower leg venous ulcer since her last visit. 02/28/18. Seen by Dr. Ortega. The patient does not report pain nor significant drainage associated with the chronic left lower leg venous ulcer since her last visit. 02/17/18. Seen by Dr. Ortega. The patient does not report pain nor significant drainage associated with the chronic left lower leg venous ulcer since her last visit. 02/07/18. Seen by Dr. Ortega. The patient does not report pain or swelling associated with chronic left lower venous ulcer however there is some yellow drainage on the overlying dressing noted today. The patient's ulcer has been managed palliatively over the past year and originally is felt to be due to her history of vein surgery many years ago. 01/17/18. Seen by Dr. Ortega. The patient does not report pain nor significant drainage associated with the chronic left lower leg venous ulcer since her last visit. 12/27/17. Seen by Dr. Ortega. The patient does not report pain nor significant drainage associated with the chronic left lower leg venous ulcer since her last visit. 12/06/17. Seen by Dr. Ortega. The patient does not report pain nor significant drainage associated with the chronic left lower leg venous ulcer since her last visit. 11/14/17. Seen by Chepe Villa PA-C. The patient reports no increase in drainage from her left leg venous ulcers. 10/25/17. Seen by Dr. Ortega. The patient does not report pain nor significant drainage associated with the chronic left lower leg venous ulcer since her last visit. Of note, we are managing the ulcer and a palliative manner as it has shown little potential for healing of the past few months. 10/08/17. Seen by Dr. Ortega. The patient does not report pain nor significant drainage associated with the chronic left lower leg venous ulcer since her last visit. 10/03/17. Seen by Dr. Ortega. The patient completed her course of doxycycline without reported adverse side effects and feels that the cellulitis associated with chronic left lower leg venous ulcer has improved over the past few days. 09/25/17. Seen by Dr. Ortega. The patient reports some mild discomfort associated with the chronic left lower leg venous ulcer and her wound culture from the last visit grew pansensitive MSSA. She is not currently on antibiotics for this and does not report fevers or feeling unwell. 09/20/17. Seen by Dr. Ortega. The patient's is concerned that the chronic left lower leg venous ulcer has started to enlarge and is now draining over the past few days. The patient does not report pain at the site nor fevers or feeling unwell in general. This ulcer's occurred at the site of previous vein stripping and has been managed palliatively over the past year as it is unlikely to heal with her current wound care measures. Surgical repair such as a skin graft has been offered however the patient does not wish to go this route. 08/30/17. Seen by Dr. Ortega. The patient does not report pain or increased drainage associated with the chronic left lower leg venous ulcer since her last visit. 08/16/17. Seen by Chepe Villa PA-C. The patient reports no increase in drainage from her left lower leg ulcer. 08/06/17. Seen by Chepe Villa PA-C. The patient reports no change his her ulcer's appearance or drainage since her last evaluation. 07/30/17. Seen by Chepe Vlila PA-C. The patient reports no increase in drainage from her left lower leg ulcer. 07/23/17. Seen by Dr. Ortega. The patient does not report pain or increased drainage associated with the chronic left lower leg venous ulcer since her last visit and she's tolerated negative pressure wound therapy without difficulty. She also does not report any problems regarding the compression wrap that's treating left lower leg chronic venous hypertension. 07/19/17. Seen Dr. Ortega. The patient does not report pain nor drainage associated with the since her last visit. Also, she does not report any problems regarding that wound vac. 07/16/17. Seen Dr. Ortega. The patient does not report pain nor drainage associated with the since her last visit. And she does not report any problems regarding that wound vac. 07/12/17. Seen Dr. Ortega. The patient does not report pain nor drainage associated with the since her last visit. And she does not report any problems regarding that wound vac. 07/09/17. Seen by Dr. Ortega. The patient is not report pain or significant drainage associated with the left lower leg venous ulcer since her last visit. 07/05/17. Seen by Dr. Ortega. The patient does not report pain associated with the chronic left lower leg venous ulcer nor does she report any problems with the compression wrap was applied last week. Her wound culture grew Staph caprae without sensitivities yet being reported. 07/02/17. Seen by Dr. Ortega. The patient does not report pain associated with the chronic left lower leg venous ulcer nor does she report any problems with the compression wrap was applied last week. 06/28/17. Seen by Dr. Ortega. The patient does not report significant pain nor increased drainage associated with the chronic left lower leg venous ulcer. 06/21/17. Seen by Dr. Ortega. The patient does not report significant pain nor increased drainage associated with the chronic left lower leg venous ulcer and she tolerated her compression wrap that's treating chronic venous hypertension in the leg without difficulty. 06/18/17. Seen by Dr. Ortega. She also does not report pain nor significant drainage associated with this ulcer. 06/14/17. Seen by Dr. Ortega. The patient does not report any additional bleeding associated with the chronic left lower leg venous ulcer following the acute hemorrhage noted at her last visit. She also does not report pain nor significant drainage associated with this ulcer. 06/11/17. Seen by Dr. Ortega. The patient does not report significant pain or increased drainage associated with the chronic left lower leg venous ulcer since her last visit. 06/07/17. Seen by Dr. Ortega. The patient reports some increased generalized myalgias and states that the left lower leg may be more painful than last week however she does not report fevers or increased leg swelling. She tolerated the wound VAC without difficulty and has completed her course of Augmentin that was treating cellulitis associated with the chronic left lower leg venous ulcer. 06/04/17. Seen by Dr. Ortega. The patient does not report pain or significant drainage associated with the chronic left lower leg venous ulcer and she's now on Augmentin for the recent Staph caprae positive wound culture which has been grown on a number of occasions previously. She does not report adverse side effects of the Augmentin and her feels the redness and leg swelling have improved since her last visit. 05/31/17. Seen by Dr. Ortega. The patient does not report pain or significant drainage or pain associated with the chronic left lateral lower leg venous ulcer over the past week nor does she report fevers or feeling unwell. Her last culture was 2 months ago which grew Staph caprae without sensitivities reported. 05/24/17. Seen by Dr. Ortega. The patient's does not report pain or significant drainage associated with the chronic left lateral lower leg venous ulcer over the past week. Her MRI shows some associated with the chronic subcutaneous tissue however no obvious abscesses for osteomyelitis. She continues to wear a compression stocking to address the edema in the leg as well. 05/17/17. Seen by Dr. Ortega. The patient reports some continued pain associated with the left lateral lower leg venous ulcer over the past few days. Home health has been applying topical gentamicin to the ulcer and she does not report fevers or feeling unwell. She does note there's also some discomfort along the medial side of the left lower leg. 05/10/17. Seen by Dr. Ortega. The patient continues to report some discomfort associated with the the left lower leg venous ulcer since her last visit and has tolerated antibiotics which are treating a wound infection without reporting adverse side effects. 05/03/17. Seen by Dr. Ortega. The patient's reports purulent drainage from a new left lower leg ulcer that is located between the 2 recent nonpressure ulcers that we have been managing on the lateral side the leg. The patient does not report pain nor fevers however she does state that she had 2 vein stripping procedures many years ago and both legs. She also did not tolerate the compression stockings that they purchased to treat the left leg chronic venous hypertension. 04/29/17. Seen by Chepe Villa PA-C. The patient presents urgently today for evaluation of a new draining wound on her left anterior leg. It was noted to be draining purulent material which began today and has constantly drained. 04/26/17. Seen by Chepe Villa PA-C. The patient has received her new [employer] compression garments and reports that they are too small and too tight. She was measured in clinic and they were custom constructed. 04/16/17. Seen by Dr. Ortega. The patient does not report pain or significant drainage associated with the chronic right lower leg venous ulcers and she's tolerating the compression wrap without difficulty. 04/11/17. Seen by Dr. Ortega. The patient does not report pain nor increased drainage associated with the 2 left lower leg venous ulcers since her last visit and she' s tolerating compression therapy without difficulty. 04/05/17. Seen by Dr. Ortega. The patient does not report any new issues regarding her chronic left lower leg venous ulcers. 03/29/17. Seen by Dr. Ortega. The patient does not report pain nor increased drainage associated with the 2 left lower leg venous ulcers since her last visit. She's tolerating negative pressure wound therapy without difficulty. 03/22/17. Seen by Dr. Ortega. The patient does not report problems regarding her wound VAC that has been placed on the chronic left lower leg venous ulcers. 03/15/17. Seen by Dr. Ortega. The patient does not report problems regarding her wound VAC that has been placed on the chronic left lower leg venous ulcers. She does not report pain associated with ulcers and is wearing her compression stocking to address the chronic lower leg edema. 03/13/17. Seen by Dr. Ortega. The patient does not report pain nor significant drainage associated with the chronic left lower leg nonpressure ulcers since her last visit. 03/08/17. The patient does not report pain nor significant drainage associated with the left lower leg nonpressure ulcer over the past week. She's wearing her compression stocking as recommended however it appears the top edge was rolled and constricted the venous return resulting in increased leg edema. 03/01/17. The patient does not report pain nor significant drainage associated with the left lower leg nonpressure ulcers and she continues on antibiotics for the strep positive culture taken from the distal ulcer at her last visit. She is also now taking a diuretic to help address his significant leg edema and has been wearing a compression stocking as recommended. 02/22/17. Seen by Dr. Ortega. The patient fell earlier this week and injured her face and right eye. She's quite distressed today and arrived without the wound vac that's treating the chronic left lower leg non-pressure ulcer in place. She does not report increased pain or drainage from the site but notes the distal ulcer previously healed has now recurred. She feels her legs are quite swollen and has not been able to wear her compression stockings. 02/08/17. Seen by Dr. Ortega. The patient does not report pain or drainage associated with the chronic left lower leg nonpressure ulcers nor does she report any problems with the wound VAC that's treating the proximal ulcer since last week.. 02/01/17. Seen by Dr. Ortega. The patient does not report pain or drainage associated with the chronic left lower leg nonpressure ulcers nor does she report any problems with the wound VAC that's treating the proximal ulcer. She took her last dose of doxycycline for the Strep A positive wound culture this morning and does not report adverse side effects. 01/25/17. Seen by Dr. Ortega. The patient does not report pain or drainage associated with the chronic left lower leg nonpressure ulcer nor does she report any problems with the wound VAC. She's completed a course of doxycycline at [facility] in the recent group B streptococcus positive wound culture. Of note, the staff report a new small lesion distal to the original one on the lateral aspect of the left lower leg. 01/18/17. Seen by Dr. Ortega. The patient does not report pain nor significant drainage in the wound VAC associated with the chronic left lower leg nonpressure ulcer.She continues on doxycycline the recent group A streptococcus positive wound culture without reporting adverse side effects. 01/16/17. Seen by Dr. Ortega. The patient reports minimal pain and drainage associated with the painful left lateral lower leg nonpressure ulcer over the past few days and she continues on antibiotics for the recent group A Strep positive culture. 01/10/17. Seen by Dr. Ortega. The patient reports decreased pain and drainage associated with the painful left lateral lower leg nonpressure ulcer over the past few days. Her culture from the last visit grew group A streptococcus. She does not report fevers nor feeling unwell in general. 01/03/17. Seen by Dr. Ortega. The patient returns to clinic with a painful left lateral lower leg non-pressure ulcer that she states started as a blister about one month ago. She report drainage and redness in the periwound area but feels this has improved somewhat since starting on Keflex a few days ago. She does not believe a culture was taken and she does not report fevers, feeling unwell, nor adverse side effects from the antibiotic. 08/21/16 Seen by Chepe Villa PA-C. The patient reports no drainage from her sacral pressure ulcer site since her last visit. She would like to pursue some kind of therapy for her lower extremity chronic venous hypertension that does not involve compression or elevation. 08/16/16. Seen by Dr. Ortega. The patient's new to our clinic and is rather difficult to elicit a coherent history. She reportedly has some erythema over the sacrum and was referred due to concern for a possible pressure ulcer. She does not report pain at the site nor drainage and has not been actively offloading the site to date. The patient state's she's quite active and mobilizes frequently throughout the day despite being limited due to severe kyphosis. She's actually more concerned about chronic bilateral lower leg edema that's been progressive over the past year however she does not report any blistering, drainage, or open wounds. Past Medical History This information was obtained from the patient Patient has a medical history of: Hypothyroidism Hypertension Degenerative joint disease Varicose Veins Hyperlipidemia B12 deficiency Whitt's esophagus Restless leg syndrome Complaints and Symptoms This information was obtained from the patient Patient complains of: General Notes: I have reviewed and concur with the Review of Systems and Past Family Social History documents completed by the clinician, I have reviewed and concur with the Wound Assessment document completed by the clinician Cardiovascular (Central/Peripheral): Lower extremity (leg) swelling Ear/Nose/Mouth/Throat: Hearing Loss / Aid Integumentary (Hair/Skin/Nails): Open Sore Musculoskeletal: Assistive Devices, Deformities, Muscle Pain Prior Wound History: Drainage, Erythema, Pain Psychiatric: Anxiety, Memory Loss Patient denies complaints or symptoms related to: Cardiovascular (Central): Irregular heart beat Cardiovascular (Central/Peripheral): Intermittent Claudication, Lower extremity (leg) resting pain Constitutional Symptoms (General Health): Chills, Fever Gastrointestinal (GI): Nausea / Vomiting, Stomach/abdominal pain Genitourinary (): Urinary Incontinence Hematologic/Lymphatic: Bleeding / Clotting Disorders, Bleeding Tendency Neurological: Loss of Protective Sensation Prior Wound History: Bleeding Psychiatric: Depression Respiratory: Oxygen Use, Shortness of Breath OBJECTIVE Constitutional Vital signs reviewed and noted. Frail appearing. Height/Length: 63 in (160.02 cm ), Weight: 104.1 lbs (47.32 kgs), BMI: 18.4, Temperature: 96.9 ?F (36.06 ?C), Pulse: 55 bpm , Respiratory Rate: 16 breaths/min, Blood Pressure: 140/71 mmHg, Pulse Oximetry: 99 %. Cardiovascular: Affected extremity exhibits no peripheral edema or cyanosis, is warm, and is well perfused. Capillary refill is less than 2 seconds. Integumentary (Hair, Skin) Refer to appropriate clinician wound documentation for this visit.. Wound #3 Left, Proximal, Lateral Leg is a chronic Venous Ulcer and has received an outcome of Healed - no new wound(s). Subsequent wound encounter measurements are 0cm length x 0cm width with no measurable depth, with an area of 0 sq cm . No tunneling has been noted. No sinus tract has been noted. No undermining has been noted. There was no drainage noted. The patient reports a wound pain of level 0/10. The wound margin is attached. Wound bed has Yes epithelialization, No eschar, No slough, No granulation. The periwound skin moisture is normal. The periwound skin exhibited: Edema, Hemosiderosis. The periwound skin did not exhibit: Brawny Induration, Excoriation, Induration, Callus, Crepitus, Fluctuance, Friable, Rash, Atrophie [place], Cyanosis, Ecchymosis, Erythema, Pallor, Rubor. The temperature of the periwound skin is WNL. Periwound skin does not exhibit signs or symptoms of infection. Local Pulse is Palpable. ASSESSMENT Active Problems ICD-10 (Encounter Diagnosis) L97.922 - Non-pressure chronic ulcer of unspecified part of left lower leg with fat layer exposed (Encounter Diagnosis) I87.312 - Chronic venous hypertension (idiopathic) with ulcer of left lower extremity PLAN Additional Orders: Compression/Edema Control Elevation of leg(s) above the level of the heart when sitting. Avoid prolonged standing in one place. Single Layer Compression Hose - Buy Futuro Therapeutic or Restoring compression stocking. 20-30mmHg. Unit you buy these wear Tetra compression size E. Compression stockings on in the am and off at night. Lotion to legs every day. Follow-Up Appointments Discharge from Outpatient Services. Scribing Attestation I attest, as the nurse, that I scribed these orders for the physician. I've reviewed the clinician's documentation and agree with the evaluation and plan as written. In addition the patient's last remiaining complex wound is now healed. The patient is invited to return to our clinic for treatment of any future complex wounds. Post wound care and strategies to avoid recurrences were discussed. Electronic Signature(s) Signed By: Date: Virgilio Ortega MD 04/20/2018 17:52:31 Entered By: Virgilio Ortega on 04/18/2018 14:07:24
== END ==
PROVIDERS: Family Provider Family Medicine; PCP Family Medicine; Visit Provider Internal Medicine
DX: Z48.817 Encounter for surgical aftercare following surgery on the skin and subcutaneous tissue (principal); I87.2 Venous insufficiency (chronic) (peripheral)
CPT/HCPCS: 99211

== ENCOUNTER → 2018-04-21 07:30 | Outpatient (CLI) | payer MEDICARE, SELFPAY ==
[2018-04-21 08:12] LABS: Add Manual Diff / Slide Review NO; Basophils Percent Auto 0.3 % (0-2); Hematocrit 34.8 % (36-46); Hemoglobin 11.7 g/dL (12.0-16.0); Lymphocytes Percent Auto 18.3 % (25-40); Mean Corpuscular HGB Conc 33.6 % (30-36); Mean Corpuscular Hemoglobin 32.8 PG (26-34); Mean Corpuscular Volume 97.7 fL (80-100); Monocytes Percent Auto 9.6 % (3-14); Neutrophils Absolute Auto 4100 /uL (3000-5900); Neutrophils Percent Auto 70.8 % (50-75); Platelet Count 159 X10^3/uL (150-400); Red Blood Cell Count 3.56 X10^6/uL (4.0-5.2); White Blood Cell Count 5.8 X10^3/uL (4.5-11.0)
[2018-04-21 08:33] LABS: Hemoglobin A1C% w Est Avg Glu 6.7 % (4.0-6.0)
[2018-04-21 08:57] LABS: Alanine Aminotransferase 29 IU/L (9-52); Albumin 4.1 g/dL (3.5-5.0); Albumin Globulin Ratio 1.4 (1.0-2.8); Alkaline Phosphatase 61 U/L (38-126); Aspartate Aminotransferase 29 IU/L (14-36); BUN Creatinine Ratio 48.6 (6-22); Bilirubin Total 0.6 mg/dL (0.2-1.3); Blood Urea Nitrogen 34 mg/dL (7-17); Calcium 8.7 mg/dL (8.4-10.2); Carbon Dioxide 32 mmol/L (22-32); Chloride 102 mmol/L (98-107); Estimated Glomerular Filt Rate > 60.0 mL/min (>60); Globulin 2.9 g/dL (1.7-4.1); Glucose 96 mg/dL (80-110); HEMOLYSIS < 15 (0-50); Potassium 3.9 mmol/L (3.4-5.1); Sodium 141 mmol/L (137-145)
[2018-04-21 09:27] LABS: Thyroid Stimulating Hormone 0.11 uIU/mL (0.47-4.68)
[2018-04-21 09:54] LABS: Creatinine Urine Random 141.7 mg/dL
[2018-04-21 09:57] LABS: Microalbumi Creatinin Ratio Ur 54.3 ug/mg CR (<30); Microalbumin Urine Random 7.7 mg/dL (0-1.6)
== END ==
PROVIDERS: PCP Family Medicine; Visit Provider Family Medicine
DX: D64.9 Anemia, unspecified (principal); E11.9 Type 2 diabetes mellitus without complications; E03.9 Hypothyroidism, unspecified
CPT/HCPCS: 36415; 80053; 82043; 82570; 83036; 84443; 85025

== ENCOUNTER 2018-05-10 07:21 | Emergency (ER) | payer MEDICARE, SELFPAY ==
--- NOTE | 2018-05-10 07:26 | PC.NURSE ---
Pt refused to come to room until was finished parking the car.
[2018-05-10 07:32] VITALS: BP 144/63; PULSE 54; RESP 20; TEMP 36.3; O2SAT 99
--- NOTE | 2018-05-10 07:53 | PC.NURSE ---
10/24 in steri strips to wounds. Tefla and kerlex coban to arm for dressing
--- NOTE | 2018-05-10 08:04 | ED_ITS ---
HPI - Wound/Laceration General Chief Complaint: Wound/Laceration Stated Complaint: ROLLED OUT OF BED Time Seen by Provider: 05/10/18 07:23 History of Present Illness HPI narrative: HPI 77-year-old female with DM II, HTN, HLD, restless legs, frontotemporal dementia , and peripheral neuropathy presents after mechanical slip in which she fell/ scraped her right distal posterior forearm against object on the floor sustaining a skin tear. Denies further injuries, no head straight, LOC. M/S/F/SocHx notable for: please see HPI; remainder reviewed with patient and in chart. ROS: Negative constitutional, eye, cardiovascular, pulmonary, GI, , MSK, skin , neurologic, psychiatric, endocrine unless noted in the HPI. Exam Gen: Pleasant, non-toxic appearing, resting comfortably. HEENT: NC, AT, PEERL, EOMI. Resp: Clear to auscultation bilaterally, normal work of breathing, no accessory muscle usage. Card: Regular rate and rhythm with no murmurs, rubs, or gallops, extremities warm and well perfused. GI: Non-tender to palpation throughout all quadrants, no focal tenderness at McBurney's point, negative Varela's sign, non-distended, no rebound or guarding. : No suprapubic tenderness to palpation. MSK: * Gen - No visible deformities, strength and tone without visually appreciable deficit (skin findings noted below). * Torso - no shoulder, chest, pelvis tenderness palpation. * Appendicular skeleton - no tenderness to palpation, full functional ROM, 2+ radial and DP pulses bilaterally. Nonantalgic gait. Skin: right mid posterior forearm with in irregularly shaped approximately 3 inch long partial-thickness avulsion laceration, scattered superficial abrasions , and a smaller, approximately 2 inch long irregularly shaped partial-thickness avulsion laceration on the distal posterior right forearm. Neuro: AO x 3, no facial asymmetry, vision and hearing WNL. Psych: Mood and affect appropriate. MDM Previous chart, nursing note, labs, imaging, and vitals reviewed. A/P: 77-year-old female with DM II, HTN, HLD, restless legs, frontotemporal dementia, and peripheral neuropathy presents after mechanical slip in which she fell/scraped her right distal posterior forearm against object on the floor sustaining a skin tear. History and exam without evidence of further injuries other than right posterior form skin tears and lacerations. These were washed and wound edges roughly reapproximated with Steri-Strips. Return to care precautions provided. Impression: fall, skin tears (please reference below for remainder of encounter information) Patient was notified of their elevated blood pressure and recommended to follow up with their primary care physician. As the patient is without evidence of acute end organ dysfunction no further emergent evaluation is indicated as per the 2013 [facility] clinical policy. Related Data Home Medications Medication Instructions Recorded Confirmed biotin 1 mg PO Q DAY #0 02/11/17 04/29/18 cholecalciferol (vitamin D3) 1,000 u PO QDAY #0 02/11/17 04/29/18 [Vitamin D3] peg 400-propylene glycol [Systane Unknown OP PRN #0 02/15/17 04/29/18 (propylene glycol)] folic acid 0.4 mg PO QDAY #0 06/11/17 04/29/18 loperamide [Imodium A-D] 5 ml PO BID #0 06/11/17 04/29/18 ropinirole [Requip] 0.25 mg PO BID #0 06/11/17 04/29/18 ropinirole [Requip] 0.5 mg PO HS #0 06/11/17 04/29/18 acetaminophen 650 mg PO Q8HP PRN #0 12/16/17 04/29/18 Previous Rx's Medication Instructions Recorded ferrous sulfate [Iron (ferrous 325 mg PO QDAY #30 tab 12/14/16 sulfate)] amlodipine [Norvasc] 5 mg PO QDAY #90 tab 04/17/17 lisinopril [Prinivil] 20 mg PO BID #180 tab 04/17/17 pravastatin 40 mg PO HS #90 tab 04/17/17 omeprazole 20 mg PO QDAY #90 cap 05/01/17 citalopram [Celexa] 20 mg PO QDAY #90 tab 07/17/17 ropinirole [Requip] 0.25 mg PO QID #120 tab 02/07/18 Test Strips - Freestyle str QDAY #100 03/19/18 levothyroxine 75 mcg capsule 75 mcg PO Q DAY #90 cap 04/29/18 triamcinolone acetonide 0.5 % See Label Instructions TOP TID #15 04/29/18 topical cream gram Allergies Allergy/AdvReac Type Severity Reaction Status Date / Time glimepiride [GLIMEPIRIDE] Allergy Unknown UNKNOWN Unverified 04/29/18 15:47 Sulfa (Sulfonamide AdvReac Severe hives Unverified 04/29/18 15:47 Antibiotics) [SULFA (SULFONAMIDE ANTIBIOTICS)] metformin [METFORMIN] AdvReac Unknown DIARRHEA Unverified 04/29/18 15:47 PFSH Social History marital status: Smoking Status: Former smoker alcohol intake: former substance use type: does not use Exam Initial Vital Signs Initial Vital Signs: Vital Signs Temperature 97.4 F L 05/10/18 07:32 Pulse Rate 54 L 05/10/18 07:32 Respiratory Rate 20 05/10/18 07:32 Blood Pressure 144/63 H 05/10/18 07:32 Pulse Oximetry 99 05/10/18 07:32 Course Vital Signs - 8 hr 05/10/18 07:32 Temperature 97.4 F L Pulse Rate 54 L Respiratory Rate 20 Blood Pressure 144/63 H Pulse Oximetry 99 Discharge Plan Departure Prescriptions: No Action ferrous sulfate [Iron (ferrous sulfate)] 325 MG tablet 325 mg PO QDAY Qty: 30 RF: 1 cholecalciferol (vitamin D3) [Vitamin D3] 1,000 UNIT tablet 1,000 u PO QDAY Qty: 0 RF: 0 biotin 1 MG capsule 1 mg PO Q DAY Qty: 0 RF: 0 peg 400-propylene glycol [Systane (propylene glycol)] 15 ML drops Unknown OP PRNQty: 0 RF: 0 pravastatin 40 MG tablet 40 mg PO HS Qty: 90 RF: 3 lisinopril [Prinivil] 20 MG tablet 20 mg PO BID Qty: 180 RF: 3 amlodipine [Norvasc] 5 MG tablet 5 mg PO QDAY Qty: 90 RF: 3 omeprazole 20 MG capsule,delayed release(DR/EC) 20 mg PO QDAY Qty: 90 RF: 10 ropinirole [Requip] 0.25 MG tablet 0.25 mg PO BID Qty: 0 RF: 0 folic acid 0.4 MG tablet 0.4 mg PO QDAY Qty: 0 RF: 0 ropinirole [Requip] 0.25 MG tablet 0.5 mg PO HS Qty: 0 RF: 0 loperamide [Imodium A-D] 1 MG/7.5 ML liquid 5 ml PO BID Qty: 0 RF: 0 citalopram [Celexa] 20 MG tablet 20 mg PO QDAY Qty: 90 RF: 2 acetaminophen 650 MG tablet extended release 650 mg PO Q8HP PRNQty: 0 RF: 0 ropinirole [Requip] 0.25 MG tablet 0.25 mg PO QID Qty: 120 RF: 5 Test Strips - Freestyle QDAY Qty: 100 RF: 3 triamcinolone acetonide 0.5 % cream See Label Instructions TOP TID Qty: 15 RF: 1 levothyroxine 75 mcg capsule 75 mcg PO Q DAY Qty: 90 RF: 3
[2018-05-10 08:07] VITALS: BP 140/59; PULSE 56; RESP 20; O2SAT 98
== END 2018-05-10 08:11 | disposition home or self-care (01) ==
PROVIDERS: Emergency Provider Emergency Medicine; Family Provider Family Medicine; PCP Family Medicine
DX: S51.811A Laceration without foreign body of right forearm, initial encounter (principal); W06.XXXA Fall from bed, initial encounter
CPT/HCPCS: 12002; 99282; 99283

== ENCOUNTER → 2018-06-16 16:52 | Outpatient (CLI) | payer MEDICARE, SELFPAY ==
[2018-06-16 18:08] LABS: TSH w/ Reflex to FT4 0.31 uIU/mL (0.47-4.68)
[2018-06-16 18:50] LABS: Free T4, Direct Thyroxine 1.48 ng/dL (0.78-2.19)
== END ==
PROVIDERS: Family Provider Family Medicine; PCP Family Medicine; Visit Provider Family Medicine
DX: E03.9 Hypothyroidism, unspecified (principal)
CPT/HCPCS: 36415; 84439; 84443

== ENCOUNTER 2018-07-14 20:19 | Observation (INO) | payer MEDICARE, SELFPAY ==
[2018-07-14 20:15] VITALS: TEMP 36.6
[2018-07-14 20:30] VITALS: BP 122/65; PULSE 57; RESP 22; O2SAT 95
--- NOTE | 2018-07-14 20:33 | ED.ANXIETY ---
HPI - Anxiety <HAYLEY Watson - Last Filed: 07/14/18 22:34> General Chief Complaint: Anxiety Stated Complaint: Anxiety Time Seen by Provider: 07/14/18 20:19 Source: patient, family and EMS Mode of arrival: ambulatory Limitations: no limitations History of Present Illness HPI narrative: 78-year-old female with history of anxiety and dementia that is a nonsmoker here for complaint of anxiety and difficulty in caring for herself. She was brought in by EMS. Son was concerned about her and called ambulance to bring her in for further care. Son states that she has been home for the last couple days by herself as her was normally her caregiver is in the hospital at [facility]. He states that he is unable to care for her as he has a family of his own. She is alert and oriented however she feels that she is feeling anxious about her home living environment. She actually states she would like to stay at home or she did not have to take care of everything because she states she can't take here everything on her own anymore. She denies any suicidal homicidal ideation. She denies any physical complaints. MD complaint: anxiety Related Data Home Medications Medication Instructions Recorded Confirmed biotin 1 mg PO Q DAY #0 02/11/17 07/14/18 cholecalciferol (vitamin D3) 1,000 u PO QDAY #0 02/11/17 07/14/18 [Vitamin D3] peg 400-propylene glycol [Systane 1 dose OP DIRECTED #0 02/15/17 07/15/18 (propylene glycol)] folic acid 0.4 mg PO QDAY #0 06/11/17 07/15/18 loperamide [Imodium A-D] 5 ml PO BID #0 06/11/17 07/14/18 acetaminophen 650 mg PO Q8HP PRN #0 12/16/17 07/14/18 triamcinolone acetonide 0.5 % 1 applictn TOP TID gram 05/23/18 07/15/18 topical cream blood sugar diagnostic [Contour 07/15/18 07/15/18 Test Strips] Previous Rx's Medication Instructions Recorded ferrous sulfate [Iron (ferrous 325 mg PO QDAY #30 tab 12/14/16 sulfate)] amlodipine [Norvasc] 5 mg PO QDAY #90 tab 04/17/17 lisinopril [Prinivil] 20 mg PO BID #180 tab 04/17/17 pravastatin 40 mg PO HS #90 tab 04/17/17 omeprazole 20 mg PO QDAY #90 cap 05/01/17 citalopram [Celexa] 20 mg PO QDAY #90 tab 07/17/17 ropinirole 0.25 mg tablet 0.25 mg PO QID #120 tab 05/19/18 levothyroxine 50 mcg tablet 50 mcg PO DAILY #90 tab 06/20/18 Allergies Allergy/AdvReac Type Severity Reaction Status Date / Time glimepiride [GLIMEPIRIDE] Allergy Unknown UNKNOWN Verified 06/16/18 15:57 Sulfa (Sulfonamide AdvReac Severe hives Verified 06/16/18 15:57 Antibiotics) [SULFA (SULFONAMIDE ANTIBIOTICS)] metformin [METFORMIN] AdvReac Unknown DIARRHEA Verified 06/16/18 15:57 Review of Systems <HAYLEY Watson - Last Filed: 07/14/18 22:34> Psychiatric Reports anxiety Exam <HAYLEY Watson - Last Filed: 07/14/18 22:34> Initial Vital Signs Initial Vital Signs: Vital Signs Temperature 97.9 F 07/14/18 20:15 Const General: cooperative and well developed Nutritional Appearance: well nourished Orientation: alert, awake, oriented x3 and not confused HENPR Mouth: oral mucosae normal and moist mucous membranes Eyes Conjunctivae: conjunctivae normal Sclera: sclerae normal Pupils: PERRL EOM: EOM intact bilaterally Resp Effort & Inspection: normal respiratory effort, able to speak in complete sentences, no respiratory distress and no use of accessory muscles Auscultation: clear to auscultation bilaterally, no rales, no rhonchi and no wheezes Cardio Rate: regular rate Rhythm: regular rhythm Heart Sounds: no click, no gallops, no murmurs and no rubs Pulses: normal peripheral pulses GI Inspection: non-distended Palpation: soft, no hepatosplenomegaly, No guarding, No pulsatile mass and No tender Auscultation: normal bowel sounds Skin General: no rashes or lesions noted, No jaundice and No petechiae Neuro General: alert, oriented x3, gait normal and no focal motor deficits Speech: speech normal <Rigo Victoria DO - Last Filed: 07/16/18 03:03> Initial Vital Signs Initial Vital Signs: Vital Signs Temperature 97.9 F 07/14/18 20:15 Course <HAYLEY Watson - Last Filed: 07/14/18 22:34> Orders Ordered: Acetaminophen (Tylenol) 650 mg PO Q6HR PRN PRN Reason: As Needed for Fever/Mild Pain Last Admin: 07/15/18 20:23 Dose: 650 mg Admin: 07/15/18 06:22 Dose: 650 mg Admin: 07/15/18 00:18 Dose: 650 mg Amlodipine Besylate (Norvasc) 5 mg PO 1800 [facility] Last Admin: 07/15/18 17:05 Dose: 5 mg Citalopram Hydrobromide (Celexa) 20 mg PO 1800 [facility] Last Admin: 07/15/18 17:05 Dose: 20 mg Ferrous Sulfate (Ferrous Sulfate) 325 mg PO DAILY [facility] Last Admin: 07/15/18 11:11 Dose: 325 mg Folic Acid (Folic Acid) 0.4 mg PO DAILY [facility] Last Admin: 07/15/18 11:03 Dose: Sodium Chloride (Normal Saline 0.9%) 1,000 mls @ 125 mls/hr IV CONT [facility] Last Admin: 07/15/18 21:20 Dose: 125 mls/hr Infusion: 07/15/18 20:53 Dose: 125 mls/hr Admin: 07/15/18 12:53 Dose: 125 mls/hr Infusion: 07/15/18 07:58 Dose: 125 mls/hr Admin: 07/14/18 23:58 Dose: 125 mls/hr Levothyroxine Sodium (Synthroid) 50 mcg PO 0600 [facility] Last Admin: 07/15/18 09:21 Dose: 50 mcg Lisinopril (Zestril) 20 mg PO BID [facility] Last Admin: 07/15/18 20:21 Dose: 20 mg Admin: 07/15/18 09:21 Dose: 20 mg Loperamide HCl (Immodium Liquid) 1 mg PO 0900,1800 [facility] Last Admin: 07/15/18 17:05 Dose: 1 mg Lorazepam (Ativan) 0.5 mg IV Q4HR PRN PRN Reason: Anxiety Last Admin: 07/15/18 00:14 Dose: 0.5 mg Ondansetron HCl (Zofran) 4 mg IV Q4HR PRN PRN Reason: Nausea And Vomiting Pantoprazole Sodium (Protonix) 20 mg PO 0600 [facility] Last Admin: 07/15/18 11:04 Dose: Pravastatin Sodium (Pravachol) 40 mg PO BEDTIME [facility] Last Admin: 07/15/18 20:21 Dose: 40 mg Ropinirole HCl (Requip) 0.25 mg PO QID [facility] Last Admin: 07/15/18 20:21 Dose: 0.25 mg Admin: 07/15/18 17:05 Dose: 0.25 mg Admin: 07/15/18 15:00 Dose: Admin: 07/15/18 11:11 Dose: 0.25 mg Vitamin D (Vitamin D3) 1,000 unit PO DAILY [facility] Last Admin: 07/15/18 11:11 Dose: 1,000 unit Discontinued Medications Amlodipine Besylate (Norvasc) 5 mg PO DAILY [facility] Last Admin: 07/15/18 12:28 Dose: Citalopram Hydrobromide (Celexa) 20 mg PO DAILY [facility] Last Admin: 07/15/18 12:28 Dose: Sodium Chloride (Normal Saline 0.9%) 1,000 mls @ 1,000 mls/hr IV BOLUS PRN PRN Reason: Fluid replacement Last Infusion: 07/14/18 22:10 Dose: 0 mls/hr Admin: 07/14/18 20:59 Dose: 1,000 mls/hr Loperamide HCl (Immodium Liquid) 1 mg PO BID [facility] Last Admin: 07/15/18 11:11 Dose: 1 mg Lorazepam (Ativan) 0.5 mg IV NOW ONE Stop: 07/14/18 20:39 Last Admin: 07/14/18 20:59 Dose: 0.5 mg Vital Signs - 8 hr 07/15/18 20:21 07/15/18 23:54 Temperature 97.6 F Pulse Rate 60 53 L Respiratory Rate 16 Blood Pressure 138/74 135/57 L Pulse Oximetry 98 <Rigo Victoria DO - Last Filed: 07/16/18 03:03> Orders Ordered: Acetaminophen (Tylenol) 650 mg PO Q6HR PRN PRN Reason: As Needed for Fever/Mild Pain Last Admin: 07/15/18 20:23 Dose: 650 mg Admin: 07/15/18 06:22 Dose: 650 mg Admin: 07/15/18 00:18 Dose: 650 mg Amlodipine Besylate (Norvasc) 5 mg PO 1800 [facility] Last Admin: 07/15/18 17:05 Dose: 5 mg Citalopram Hydrobromide (Celexa) 20 mg PO 1800 [facility] Last Admin: 07/15/18 17:05 Dose: 20 mg Ferrous Sulfate (Ferrous Sulfate) 325 mg PO DAILY [facility] Last Admin: 07/15/18 11:11 Dose: 325 mg Folic Acid (Folic Acid) 0.4 mg PO DAILY [facility] Last Admin: 07/15/18 11:03 Dose: Sodium Chloride (Normal Saline 0.9%) 1,000 mls @ 125 mls/hr IV CONT [facility] Last Admin: 07/15/18 21:20 Dose: 125 mls/hr Infusion: 07/15/18 20:53 Dose: 125 mls/hr Admin: 07/15/18 12:53 Dose: 125 mls/hr Infusion: 07/15/18 07:58 Dose: 125 mls/hr Admin: 07/14/18 23:58 Dose: 125 mls/hr Levothyroxine Sodium (Synthroid) 50 mcg PO 0600 [facility] Last Admin: 07/15/18 09:21 Dose: 50 mcg Lisinopril (Zestril) 20 mg PO BID [facility] Last Admin: 07/15/18 20:21 Dose: 20 mg Admin: 07/15/18 09:21 Dose: 20 mg Loperamide HCl (Immodium Liquid) 1 mg PO 0900,1800 [facility] Last Admin: 07/15/18 17:05 Dose: 1 mg Lorazepam (Ativan) 0.5 mg IV Q4HR PRN PRN Reason: Anxiety Last Admin: 07/15/18 00:14 Dose: 0.5 mg Ondansetron HCl (Zofran) 4 mg IV Q4HR PRN PRN Reason: Nausea And Vomiting Pantoprazole Sodium (Protonix) 20 mg PO 0600 [facility] Last Admin: 07/15/18 11:04 Dose: Pravastatin Sodium (Pravachol) 40 mg PO BEDTIME [facility] Last Admin: 07/15/18 20:21 Dose: 40 mg Ropinirole HCl (Requip) 0.25 mg PO QID [facility] Last Admin: 07/15/18 20:21 Dose: 0.25 mg Admin: 07/15/18 17:05 Dose: 0.25 mg Admin: 07/15/18 15:00 Dose: Admin: 07/15/18 11:11 Dose: 0.25 mg Vitamin D (Vitamin D3) 1,000 unit PO DAILY [facility] Last Admin: 07/15/18 11:11 Dose: 1,000 unit Discontinued Medications Amlodipine Besylate (Norvasc) 5 mg PO DAILY [facility] Last Admin: 07/15/18 12:28 Dose: Citalopram Hydrobromide (Celexa) 20 mg PO DAILY [facility] Last Admin: 07/15/18 12:28 Dose: Sodium Chloride (Normal Saline 0.9%) 1,000 mls @ 1,000 mls/hr IV BOLUS PRN PRN Reason: Fluid replacement Last Infusion: 07/14/18 22:10 Dose: 0 mls/hr Admin: 07/14/18 20:59 Dose: 1,000 mls/hr Loperamide HCl (Immodium Liquid) 1 mg PO BID [facility] Last Admin: 07/15/18 11:11 Dose: 1 mg Lorazepam (Ativan) 0.5 mg IV NOW ONE Stop: 07/14/18 20:39 Last Admin: 07/14/18 20:59 Dose: 0.5 mg Vital Signs - 8 hr 07/15/18 20:21 07/15/18 23:54 Temperature 97.6 F Pulse Rate 60 53 L Respiratory Rate 16 Blood Pressure 138/74 135/57 L Pulse Oximetry 98 MDM - Anxiety <HAYLEY Watson - Last Filed: 07/14/18 22:34> Lab Data Result diagrams: 07/14/18 20:56 07/14/18 20:56 Lab Results 07/14/18 07/14/18 Range/Units 20:56 20:56 WBC 5.1 (4.5-11.0) X10^3/uL RBC 3.34 L (4.0-5.2) X10^6/uL Hgb 11.0 L (12.0-16.0) g/dL Hct 32.5 L (36-46) % MCV 97.4 (80-100) fL MCH 32.9 (26-34) PG MCHC 33.8 (30-36) % RDW 14.2 (11.6-14.8) % Plt Count 174 (150-400) X10^3/uL Neut % (Auto) 63.8 (50-75) % Lymph % (Auto) 23.3 L (25-40) % [place] % (Auto) 10.7 (3-14) % Eos % (Auto) 1.7 L (2-4) % Baso % (Auto) 0.5 (0-2) % Neut # (Auto) 3300 (6391-2824) /uL Sodium 140 (137-145) mmol/L Potassium 4.5 (3.4-5.1) mmol/L Chloride 103 (98-107) mmol/L Carbon Dioxide 30 (22-32) mmol/L BUN 43 H (7-17) mg/dL Creatinine 0.80 (0.52-1.04) mg/dL Estimated GFR > 60.0 (>60) mL/min BUN/Creatinine Ratio 53.8 H (6-22) Glucose 110 (80-110) mg/dL Calcium 9.3 (8.4-10.2) mg/dL Total Bilirubin 0.3 (0.2-1.3) mg/dL AST 34 (14-36) IU/L ALT 32 (9-52) IU/L Alkaline Phosphatase 50 (38-126) U/L Total Protein 6.7 (6.3-8.2) g/dL Albumin 4.1 (3.5-5.0) g/dL Globulin 2.6 (1.7-4.1) g/dL Albumin/Globulin Ratio 1.6 (1.0-2.8) Urine Dip Bedside Urine Glucose Negative Bedside Urine Bilirubin - Negative Bedside Urine Ketone - Negative Urine Specific Admire 1.020 Bedside Urine Occult Blood - Negative Bedside Urine pH 6.0 Bedside Urine Protein - Negative Bedside Urine Urobilinogen - Negative Bedside Urine Nitrite - Negative Bedside Urine Leukocytes - Negative Esterase MDM Narrative Medical decision making narrative: CBC and Chem panel were obtained were unremarkable. Urinalysis was negative for urinary tract infection. She was given half a mg in the Ativan in the emergency room and some fluids which seemed to help her relax and feel better. Discussed case with hospitalist Dr. Tubbs who states place patient in observation for the night and her primary care doctor Tom will see her tomorrow. She is admitted observation due to anxiety exacerbation and failure to thrive. <Rigo Brooksan, DO - Last Filed: 07/16/18 03:03> Lab Data Lab Results 07/14/18 07/14/18 Range/Units 20:56 20:56 WBC 5.1 (4.5-11.0) X10^3/uL RBC 3.34 L (4.0-5.2) X10^6/uL Hgb 11.0 L (12.0-16.0) g/dL Hct 32.5 L (36-46) % MCV 97.4 (80-100) fL MCH 32.9 (26-34) PG MCHC 33.8 (30-36) % RDW 14.2 (11.6-14.8) % Plt Count 174 (150-400) X10^3/uL Neut % (Auto) 63.8 (50-75) % Lymph % (Auto) 23.3 L (25-40) % [place] % (Auto) 10.7 (3-14) % Eos % (Auto) 1.7 L (2-4) % Baso % (Auto) 0.5 (0-2) % Neut # (Auto) 3300 (4967-6868) /uL Sodium 140 (137-145) mmol/L Potassium 4.5 (3.4-5.1) mmol/L Chloride 103 (98-107) mmol/L Carbon Dioxide 30 (22-32) mmol/L BUN 43 H (7-17) mg/dL Creatinine 0.80 (0.52-1.04) mg/dL Estimated GFR > 60.0 (>60) mL/min BUN/Creatinine Ratio 53.8 H (6-22) Glucose 110 (80-110) mg/dL Calcium 9.3 (8.4-10.2) mg/dL Total Bilirubin 0.3 (0.2-1.3) mg/dL AST 34 (14-36) IU/L ALT 32 (9-52) IU/L Alkaline Phosphatase 50 (38-126) U/L Total Protein 6.7 (6.3-8.2) g/dL Albumin 4.1 (3.5-5.0) g/dL Globulin 2.6 (1.7-4.1) g/dL Albumin/Globulin Ratio 1.6 (1.0-2.8) Urine Dip Bedside Urine Glucose Negative Bedside Urine Bilirubin - Negative Bedside Urine Ketone - Negative Urine Specific Adm[place] 1.020 Bedside Urine Occult Blood - Negative Bedside Urine pH 6.0 Bedside Urine Protein - Negative Bedside Urine Urobilinogen - Negative Bedside Urine Nitrite - Negative Bedside Urine Leukocytes - Negative Esterase Discharge Plan Departure Patient Disposition: Admitted as Observation Clinical Impression: Adult failure to thrive Discharge Date/Time: 07/14/18 22:09 Interventions: ED Discharge Assessment Last Done: 07/14/18 22:51 Admit Date/Time: 07/14/18 22:09 Admit Provider: Dorina Santos <Rigo Victoria, - Last Filed: 07/16/18 03:03> Cosign ED Attending Cosignature Attestation: I was immediately available in the department for consultation. Documentation has been reviewed. I agree with assessment and plan.
[2018-07-14 20:59] VITALS: BP 122/65; PULSE 73; O2SAT 100
[2018-07-14] MEDS: SODIUM CHLORIDE 0.9% 1,000 ML 1000 ML IV (20:59)
[2018-07-14] MEDS: LORazepam 2 MG/ML SYRINGE 0.5 MG IV (20:59)
[2018-07-14 21:10] LABS: Add Manual Diff / Slide Review NO; Basophils Percent Auto 0.5 % (0-2); Eosinophils Percent Auto 1.7 % (2-4); Hematocrit 32.5 % (36-46); Lymphocytes Percent Auto 23.3 % (25-40); Mean Corpuscular HGB Conc 33.8 % (30-36); Mean Corpuscular Hemoglobin 32.9 PG (26-34); Mean Corpuscular Volume 97.4 fL (80-100); Monocytes Percent Auto 10.7 % (3-14); Neutrophils Absolute Auto 3300 /uL (3000-5900); Neutrophils Percent Auto 63.8 % (50-75); Platelet Count 174 X10^3/uL (150-400); Red Blood Cell Count 3.34 X10^6/uL (4.0-5.2); Red Cell Distribution Width 14.2 % (11.6-14.8); White Blood Cell Count 5.1 X10^3/uL (4.5-11.0)
[2018-07-14 21:23] LABS: Alanine Aminotransferase 32 IU/L (9-52); Albumin 4.1 g/dL (3.5-5.0); Albumin Globulin Ratio 1.6 (1.0-2.8); Alkaline Phosphatase 50 U/L (38-126); Aspartate Aminotransferase 34 IU/L (14-36); BUN Creatinine Ratio 53.8 (6-22); Bilirubin Total 0.3 mg/dL (0.2-1.3); Blood Urea Nitrogen 43 mg/dL (7-17); Calcium 9.3 mg/dL (8.4-10.2); Carbon Dioxide 30 mmol/L (22-32); Chloride 103 mmol/L (98-107); Estimated Glomerular Filt Rate > 60.0 mL/min (>60); Globulin 2.6 g/dL (1.7-4.1); Glucose 110 mg/dL (80-110); HEMOLYSIS < 15 (0-50); Potassium 4.5 mmol/L (3.4-5.1); Sodium 140 mmol/L (137-145); Total Protein 6.7 g/dL (6.3-8.2)
--- NOTE | 2018-07-14 22:03 | ED_ITS ---
HPI - Anxiety <HAYLEY Watson - Last Filed: 07/14/18 22:34> General Chief Complaint: Anxiety Stated Complaint: Anxiety Time Seen by Provider: 07/14/18 20:19 Source: patient, family and EMS Mode of arrival: ambulatory Limitations: no limitations History of Present Illness HPI narrative: 78-year-old female with history of anxiety and dementia that is a nonsmoker here for complaint of anxiety and difficulty in caring for herself. She was brought in by EMS. Son was concerned about her and called ambulance to bring her in for further care. Son states that she has been home for the last couple days by herself as her was normally her caregiver is in the hospital at [facility]. He states that he is unable to care for her as he has a family of his own. She is alert and oriented however she feels that she is feeling anxious about her home living environment. She actually states she would like to stay at home or she did not have to take care of everything because she states she can't take here everything on her own anymore. She denies any suicidal homicidal ideation. She denies any physical complaints. MD complaint: anxiety Related Data Home Medications Medication Instructions Recorded Confirmed biotin 1 mg PO Q DAY #0 02/11/17 07/14/18 cholecalciferol (vitamin D3) 1,000 u PO QDAY #0 02/11/17 07/14/18 [Vitamin D3] peg 400-propylene glycol [Systane 1 dose OP DIRECTED #0 02/15/17 07/15/18 (propylene glycol)] folic acid 0.4 mg PO QDAY #0 06/11/17 07/15/18 loperamide [Imodium A-D] 5 ml PO BID #0 06/11/17 07/14/18 acetaminophen 650 mg PO Q8HP PRN #0 12/16/17 07/14/18 triamcinolone acetonide 0.5 % 1 applictn TOP TID gram 05/23/18 07/15/18 topical cream blood sugar diagnostic [Contour 07/15/18 07/15/18 Test Strips] Previous Rx's Medication Instructions Recorded ferrous sulfate [Iron (ferrous 325 mg PO QDAY #30 tab 12/14/16 sulfate)] amlodipine [Norvasc] 5 mg PO QDAY #90 tab 04/17/17 lisinopril [Prinivil] 20 mg PO BID #180 tab 04/17/17 pravastatin 40 mg PO HS #90 tab 04/17/17 omeprazole 20 mg PO QDAY #90 cap 05/01/17 citalopram [Celexa] 20 mg PO QDAY #90 tab 07/17/17 ropinirole 0.25 mg tablet 0.25 mg PO QID #120 tab 05/19/18 levothyroxine 50 mcg tablet 50 mcg PO DAILY #90 tab 06/20/18 Allergies Allergy/AdvReac Type Severity Reaction Status Date / Time glimepiride [GLIMEPIRIDE] Allergy Unknown UNKNOWN Verified 06/16/18 15:57 Sulfa (Sulfonamide AdvReac Severe hives Verified 06/16/18 15:57 Antibiotics) [SULFA (SULFONAMIDE ANTIBIOTICS)] metformin [METFORMIN] AdvReac Unknown DIARRHEA Verified 06/16/18 15:57 Review of Systems <HAYLEY Watson - Last Filed: 07/14/18 22:34> Psychiatric Reports anxiety Exam <HAYLEY Watson - Last Filed: 07/14/18 22:34> Initial Vital Signs Initial Vital Signs: Vital Signs Temperature 97.9 F 07/14/18 20:15 Const General: cooperative and well developed Nutritional Appearance: well nourished Orientation: alert, awake, oriented x3 and not confused HENMS Mouth: oral mucosae normal and moist mucous membranes Eyes Conjunctivae: conjunctivae normal Sclera: sclerae normal Pupils: PERRL EOM: EOM intact bilaterally Resp Effort & Inspection: normal respiratory effort, able to speak in complete sentences, no respiratory distress and no use of accessory muscles Auscultation: clear to auscultation bilaterally, no rales, no rhonchi and no wheezes Cardio Rate: regular rate Rhythm: regular rhythm Heart Sounds: no click, no gallops, no murmurs and no rubs Pulses: normal peripheral pulses GI Inspection: non-distended Palpation: soft, no hepatosplenomegaly, No guarding, No pulsatile mass and No tender Auscultation: normal bowel sounds Skin General: no rashes or lesions noted, No jaundice and No petechiae Neuro General: alert, oriented x3, gait normal and no focal motor deficits Speech: speech normal <Rigo Victoria DO - Last Filed: 07/16/18 03:03> Initial Vital Signs Initial Vital Signs: Vital Signs Temperature 97.9 F 07/14/18 20:15 Course <HAYLEY Watson - Last Filed: 07/14/18 22:34> Orders Ordered: Acetaminophen (Tylenol) 650 mg PO Q6HR PRN PRN Reason: As Needed for Fever/Mild Pain Last Admin: 07/15/18 20:23 Dose: 650 mg Admin: 07/15/18 06:22 Dose: 650 mg Admin: 07/15/18 00:18 Dose: 650 mg Amlodipine Besylate (Norvasc) 5 mg PO 1800 [facility] Last Admin: 07/15/18 17:05 Dose: 5 mg Citalopram Hydrobromide (Celexa) 20 mg PO 1800 [facility] Last Admin: 07/15/18 17:05 Dose: 20 mg Ferrous Sulfate (Ferrous Sulfate) 325 mg PO DAILY [facility] Last Admin: 07/15/18 11:11 Dose: 325 mg Folic Acid (Folic Acid) 0.4 mg PO DAILY [facility] Last Admin: 07/15/18 11:03 Dose: Sodium Chloride (Normal Saline 0.9%) 1,000 mls @ 125 mls/hr IV CONT [facility] Last Admin: 07/15/18 21:20 Dose: 125 mls/hr Infusion: 07/15/18 20:53 Dose: 125 mls/hr Admin: 07/15/18 12:53 Dose: 125 mls/hr Infusion: 07/15/18 07:58 Dose: 125 mls/hr Admin: 07/14/18 23:58 Dose: 125 mls/hr Levothyroxine Sodium (Synthroid) 50 mcg PO 0600 [facility] Last Admin: 07/15/18 09:21 Dose: 50 mcg Lisinopril (Zestril) 20 mg PO BID [facility] Last Admin: 07/15/18 20:21 Dose: 20 mg Admin: 07/15/18 09:21 Dose: 20 mg Loperamide HCl (Immodium Liquid) 1 mg PO 0900,1800 [facility] Last Admin: 07/15/18 17:05 Dose: 1 mg Lorazepam (Ativan) 0.5 mg IV Q4HR PRN PRN Reason: Anxiety Last Admin: 07/15/18 00:14 Dose: 0.5 mg Ondansetron HCl (Zofran) 4 mg IV Q4HR PRN PRN Reason: Nausea And Vomiting Pantoprazole Sodium (Protonix) 20 mg PO 0600 [facility] Last Admin: 07/15/18 11:04 Dose: Pravastatin Sodium (Pravachol) 40 mg PO BEDTIME [facility] Last Admin: 07/15/18 20:21 Dose: 40 mg Ropinirole HCl (Requip) 0.25 mg PO QID [facility] Last Admin: 07/15/18 20:21 Dose: 0.25 mg Admin: 07/15/18 17:05 Dose: 0.25 mg Admin: 07/15/18 15:00 Dose: Admin: 07/15/18 11:11 Dose: 0.25 mg Vitamin D (Vitamin D3) 1,000 unit PO DAILY [facility] Last Admin: 07/15/18 11:11 Dose: 1,000 unit Discontinued Medications Amlodipine Besylate (Norvasc) 5 mg PO DAILY [facility] Last Admin: 07/15/18 12:28 Dose: Citalopram Hydrobromide (Celexa) 20 mg PO DAILY [facility] Last Admin: 07/15/18 12:28 Dose: Sodium Chloride (Normal Saline 0.9%) 1,000 mls @ 1,000 mls/hr IV BOLUS PRN PRN Reason: Fluid replacement Last Infusion: 07/14/18 22:10 Dose: 0 mls/hr Admin: 07/14/18 20:59 Dose: 1,000 mls/hr Loperamide HCl (Immodium Liquid) 1 mg PO BID [facility] Last Admin: 07/15/18 11:11 Dose: 1 mg Lorazepam (Ativan) 0.5 mg IV NOW ONE Stop: 07/14/18 20:39 Last Admin: 07/14/18 20:59 Dose: 0.5 mg Vital Signs - 8 hr 07/15/18 20:21 07/15/18 23:54 Temperature 97.6 F Pulse Rate 60 53 L Respiratory Rate 16 Blood Pressure 138/74 135/57 L Pulse Oximetry 98 <Rigo Victoria DO - Last Filed: 07/16/18 03:03> Orders Ordered: Acetaminophen (Tylenol) 650 mg PO Q6HR PRN PRN Reason: As Needed for Fever/Mild Pain Last Admin: 07/15/18 20:23 Dose: 650 mg Admin: 07/15/18 06:22 Dose: 650 mg Admin: 07/15/18 00:18 Dose: 650 mg Amlodipine Besylate (Norvasc) 5 mg PO 1800 [facility] Last Admin: 07/15/18 17:05 Dose: 5 mg Citalopram Hydrobromide (Celexa) 20 mg PO 1800 [facility] Last Admin: 07/15/18 17:05 Dose: 20 mg Ferrous Sulfate (Ferrous Sulfate) 325 mg PO DAILY [facility] Last Admin: 07/15/18 11:11 Dose: 325 mg Folic Acid (Folic Acid) 0.4 mg PO DAILY [facility] Last Admin: 07/15/18 11:03 Dose: Sodium Chloride (Normal Saline 0.9%) 1,000 mls @ 125 mls/hr IV CONT [facility] Last Admin: 07/15/18 21:20 Dose: 125 mls/hr Infusion: 07/15/18 20:53 Dose: 125 mls/hr Admin: 07/15/18 12:53 Dose: 125 mls/hr Infusion: 07/15/18 07:58 Dose: 125 mls/hr Admin: 07/14/18 23:58 Dose: 125 mls/hr Levothyroxine Sodium (Synthroid) 50 mcg PO 0600 [facility] Last Admin: 07/15/18 09:21 Dose: 50 mcg Lisinopril (Zestril) 20 mg PO BID [facility] Last Admin: 07/15/18 20:21 Dose: 20 mg Admin: 07/15/18 09:21 Dose: 20 mg Loperamide HCl (Immodium Liquid) 1 mg PO 0900,1800 [facility] Last Admin: 07/15/18 17:05 Dose: 1 mg Lorazepam (Ativan) 0.5 mg IV Q4HR PRN PRN Reason: Anxiety Last Admin: 07/15/18 00:14 Dose: 0.5 mg Ondansetron HCl (Zofran) 4 mg IV Q4HR PRN PRN Reason: Nausea And Vomiting Pantoprazole Sodium (Protonix) 20 mg PO 0600 [facility] Last Admin: 07/15/18 11:04 Dose: Pravastatin Sodium (Pravachol) 40 mg PO BEDTIME [facility] Last Admin: 07/15/18 20:21 Dose: 40 mg Ropinirole HCl (Requip) 0.25 mg PO QID [facility] Last Admin: 07/15/18 20:21 Dose: 0.25 mg Admin: 07/15/18 17:05 Dose: 0.25 mg Admin: 07/15/18 15:00 Dose: Admin: 07/15/18 11:11 Dose: 0.25 mg Vitamin D (Vitamin D3) 1,000 unit PO DAILY [facility] Last Admin: 07/15/18 11:11 Dose: 1,000 unit Discontinued Medications Amlodipine Besylate (Norvasc) 5 mg PO DAILY [facility] Last Admin: 07/15/18 12:28 Dose: Citalopram Hydrobromide (Celexa) 20 mg PO DAILY [facility] Last Admin: 07/15/18 12:28 Dose: Sodium Chloride (Normal Saline 0.9%) 1,000 mls @ 1,000 mls/hr IV BOLUS PRN PRN Reason: Fluid replacement Last Infusion: 07/14/18 22:10 Dose: 0 mls/hr Admin: 07/14/18 20:59 Dose: 1,000 mls/hr Loperamide HCl (Immodium Liquid) 1 mg PO BID [facility] Last Admin: 07/15/18 11:11 Dose: 1 mg Lorazepam (Ativan) 0.5 mg IV NOW ONE Stop: 07/14/18 20:39 Last Admin: 07/14/18 20:59 Dose: 0.5 mg Vital Signs - 8 hr 07/15/18 20:21 07/15/18 23:54 Temperature 97.6 F Pulse Rate 60 53 L Respiratory Rate 16 Blood Pressure 138/74 135/57 L Pulse Oximetry 98 MDM - Anxiety <HAYLEY Watson - Last Filed: 07/14/18 22:34> Lab Data Result diagrams: 07/14/18 20:56 07/14/18 20:56 Lab Results 07/14/18 07/14/18 Range/Units 20:56 20:56 WBC 5.1 (4.5-11.0) X10^3/uL RBC 3.34 L (4.0-5.2) X10^6/uL Hgb 11.0 L (12.0-16.0) g/dL Hct 32.5 L (36-46) % MCV 97.4 (80-100) fL MCH 32.9 (26-34) PG MCHC 33.8 (30-36) % RDW 14.2 (11.6-14.8) % Plt Count 174 (150-400) X10^3/uL Neut % (Auto) 63.8 (50-75) % Lymph % (Auto) 23.3 L (25-40) % [place] % (Auto) 10.7 (3-14) % Eos % (Auto) 1.7 L (2-4) % Baso % (Auto) 0.5 (0-2) % Neut # (Auto) 3300 (0923-2899) /uL Sodium 140 (137-145) mmol/L Potassium 4.5 (3.4-5.1) mmol/L Chloride 103 (98-107) mmol/L Carbon Dioxide 30 (22-32) mmol/L BUN 43 H (7-17) mg/dL Creatinine 0.80 (0.52-1.04) mg/dL Estimated GFR > 60.0 (>60) mL/min BUN/Creatinine Ratio 53.8 H (6-22) Glucose 110 (80-110) mg/dL Calcium 9.3 (8.4-10.2) mg/dL Total Bilirubin 0.3 (0.2-1.3) mg/dL AST 34 (14-36) IU/L ALT 32 (9-52) IU/L Alkaline Phosphatase 50 (38-126) U/L Total Protein 6.7 (6.3-8.2) g/dL Albumin 4.1 (3.5-5.0) g/dL Globulin 2.6 (1.7-4.1) g/dL Albumin/Globulin Ratio 1.6 (1.0-2.8) Urine Dip Bedside Urine Glucose Negative Bedside Urine Bilirubin - Negative Bedside Urine Ketone - Negative Urine Specific Gordon 1.020 Bedside Urine Occult Blood - Negative Bedside Urine pH 6.0 Bedside Urine Protein - Negative Bedside Urine Urobilinogen - Negative Bedside Urine Nitrite - Negative Bedside Urine Leukocytes - Negative Esterase MDM Narrative Medical decision making narrative: CBC and Chem panel were obtained were unremarkable. Urinalysis was negative for urinary tract infection. She was given half a mg in the Ativan in the emergency room and some fluids which seemed to help her relax and feel better. Discussed case with hospitalist Dr. Tubbs who states place patient in observation for the night and her primary care doctor Tom will see her tomorrow. She is admitted observation due to anxiety exacerbation and failure to thrive. <Rigo Brooksan, DO - Last Filed: 07/16/18 03:03> Lab Data Lab Results 07/14/18 07/14/18 Range/Units 20:56 20:56 WBC 5.1 (4.5-11.0) X10^3/uL RBC 3.34 L (4.0-5.2) X10^6/uL Hgb 11.0 L (12.0-16.0) g/dL Hct 32.5 L (36-46) % MCV 97.4 (80-100) fL MCH 32.9 (26-34) PG MCHC 33.8 (30-36) % RDW 14.2 (11.6-14.8) % Plt Count 174 (150-400) X10^3/uL Neut % (Auto) 63.8 (50-75) % Lymph % (Auto) 23.3 L (25-40) % [place] % (Auto) 10.7 (3-14) % Eos % (Auto) 1.7 L (2-4) % Baso % (Auto) 0.5 (0-2) % Neut # (Auto) 3300 (0533-6386) /uL Sodium 140 (137-145) mmol/L Potassium 4.5 (3.4-5.1) mmol/L Chloride 103 (98-107) mmol/L Carbon Dioxide 30 (22-32) mmol/L BUN 43 H (7-17) mg/dL Creatinine 0.80 (0.52-1.04) mg/dL Estimated GFR > 60.0 (>60) mL/min BUN/Creatinine Ratio 53.8 H (6-22) Glucose 110 (80-110) mg/dL Calcium 9.3 (8.4-10.2) mg/dL Total Bilirubin 0.3 (0.2-1.3) mg/dL AST 34 (14-36) IU/L ALT 32 (9-52) IU/L Alkaline Phosphatase 50 (38-126) U/L Total Protein 6.7 (6.3-8.2) g/dL Albumin 4.1 (3.5-5.0) g/dL Globulin 2.6 (1.7-4.1) g/dL Albumin/Globulin Ratio 1.6 (1.0-2.8) Urine Dip Bedside Urine Glucose Negative Bedside Urine Bilirubin - Negative Bedside Urine Ketone - Negative Urine Specific Gordon 1.020 Bedside Urine Occult Blood - Negative Bedside Urine pH 6.0 Bedside Urine Protein - Negative Bedside Urine Urobilinogen - Negative Bedside Urine Nitrite - Negative Bedside Urine Leukocytes - Negative Esterase Discharge Plan Departure Patient Disposition: Admitted as Observation Clinical Impression: Adult failure to thrive Discharge Date/Time: 07/14/18 22:09 Interventions: ED Discharge Assessment Last Done: 07/14/18 22:51 Admit Date/Time: 07/14/18 22:09 Admit Provider: Dorina Santos <Rigo Victoria, - Last Filed: 07/16/18 03:03> Cosign ED Attending Cosignature Attestation: I was immediately available in the department for consultation. Documentation has been reviewed. I agree with assessment and plan.
[2018-07-14 22:06] VITALS: BP 145/71; PULSE 72; RESP 16; O2SAT 95
[2018-07-14 22:30] VITALS: BMI 16.8
--- NOTE | 2018-07-14 22:50 | PC.NURSE ---
Syl shift note: Patient awake and alert, forgetful. Calm, pleasant and cooperative. BIB to ED via EMS called in by son (Hima) with concern regarding her altered mental status, anxiety and home safety. Patients is currently hospitalized. Oriented patient to room and environment, call light. Set bed alarm. Discussed importance of using call light for assistance at all times. Patient verbalized understanding and demonstrated use of call light.
[2018-07-14 23:03] VITALS: BP 155/80; PULSE 70; RESP 16; TEMP 36.8; O2SAT 96
[2018-07-14 23:58] VITALS: BP 128/72; PULSE 78; RESP 18; TEMP 36.5; O2SAT 97
[2018-07-14] MEDS: SODIUM CHLORIDE 0.9% 1,000 ML 125 ML IV (23:58)
[2018-07-15] VITALS (9 sets, daily range): BP systolic 135–155; BP diastolic 57–80; PULSE 53–92; RESP 16–20; TEMP 36.4–36.9; O2SAT 96–98
[2018-07-15] MEDS: LORazepam 2 MG/ML SYRINGE 0.5 MG IV (00:14)
[2018-07-15] MEDS: ACETAMINOPHEN 325 MG TABLET 650 MG PO ×3 (00:18→20:23)
--- NOTE | 2018-07-15 07:56 | PM.HP.1 ---
History of Present Illness Date Patient Seen: 07/15/18 Time Patient Seen: 06:30 Chief complaint: Anxiety Narrative: Patient is a 78-year-old female with diet-controlled diabetes, hypertension, chronic lower extremity venous stasis, anxiety, and frontotemporal dementia. Patient lives at home with her and has declined assisted living in the past. Her was admitted to [facility] two days ago for HHT and clots in his heart. Since that time she has had difficulty caring for herself and has had worsening anxiety. Due to severe arthritis in her hands she cannot open cans so has been eating very little. She relies on her for transportation as she no longer drives. Patient states she has not had a shower since June 28 because she needs help. Yesterday a caregiver named Lizabeth came over and wanted to help her with a shower shower but they did get that far. Last night her son came over and was concerned about her welfare so called EMS who brought her to [facility]. In the ER patient was found to be quite anxious about her and struggles at home. Symptoms improved with a small dose of lorazepam. Her son stated he could not care for her as he had family business requiring his attention. CBC, CMP and UA were negative. Patient denies any new acute symptoms or recent illnesses. She admits to poor oral intake as she cannot eat many of the foods provided by her son or due to her chronic bowel issues. She repeatedly states she sends her son or her to the store and ?they always bring home the wrong things. She goes on to complain in detail about her relationship with her and how he can never get anything right for her. Patient History Medical History History of Whitt's esophagus (Chronic) History of IBS (Chronic) History of anxiety (Chronic) History of colon polyps (Chronic) History of depression (Chronic) History of diabetes mellitus (Chronic) History of diverticulitis (Chronic) History of gastroesophageal reflux (GERD) (Chronic) History of hemorrhoids (Chronic) History of hyperlipidemia (Chronic) History of hypertension (Chronic) History of hypothyroidism (Chronic) History of incontinence of feces (Chronic) History of osteoporosis (Chronic) History of peripheral neuropathy (Chronic) History of restless legs syndrome (Chronic) History of urinary incontinence (Chronic) Scoliosis (Chronic) Chronic venous stasis (Resolved) History of chickenpox (Resolved) History of measles (Resolved) Surgical History History of vein stripping (Resolved) History of bowel resection History of thyroidectomy Status post appendectomy Status post arthroscopy Status post bunionectomy Status post endoscopy Status post hammer toe correction Status post rotator cuff repair Family & Social History Family History: Reviewed 07/15/18 by Dorina Santos DO Social History: household members spouse Prior Living Arrangements House Safety & Behavioral: Feels Safe in Current Yes Environment Been Physically Hurt or No Threatened By a Person Suicidal Ideation Description None Tobacco & Substance use: Smoking Status Former smoker alcohol intake former Substance Use Type does not use Meds Home Medications Medication Instructions Recorded Confirmed Type ferrous sulfate [Iron (ferrous 325 mg PO QDAY #30 tab 12/14/16 07/14/18 Rx sulfate)] biotin 1 mg PO Q DAY #0 02/11/17 07/14/18 History cholecalciferol (vitamin D3) 1,000 u PO QDAY #0 02/11/17 07/14/18 History [Vitamin D3] peg 400-propylene glycol [Systane 1 dose OP DIRECTED #0 02/15/17 07/15/18 History (propylene glycol)] amlodipine [Norvasc] 5 mg PO QDAY #90 tab 04/17/17 07/14/18 Rx lisinopril [Prinivil] 20 mg PO BID #180 tab 04/17/17 07/14/18 Rx pravastatin 40 mg PO HS #90 tab 04/17/17 07/14/18 Rx omeprazole 20 mg PO QDAY #90 cap 05/01/17 07/15/18 Rx folic acid 0.4 mg PO QDAY #0 06/11/17 07/15/18 History loperamide [Imodium A-D] 5 ml PO BID #0 06/11/17 07/14/18 History citalopram [Celexa] 20 mg PO QDAY #90 tab 07/17/17 07/14/18 Rx acetaminophen 650 mg PO Q8HP PRN #0 12/16/17 07/14/18 History ropinirole 0.25 mg tablet 0.25 mg PO QID #120 tab 05/19/18 07/14/18 Rx triamcinolone acetonide 0.5 % 1 applictn TOP TID gram 05/23/18 07/15/18 History topical cream levothyroxine 50 mcg tablet 50 mcg PO DAILY #90 tab 06/20/18 07/14/18 Rx blood sugar diagnostic [Contour 07/15/18 07/15/18 History Test Strips] Allergies Allergy/AdvReac Type Severity Reaction Status Date / Time glimepiride [GLIMEPIRIDE] Allergy Unknown UNKNOWN Verified 06/16/18 15:57 Sulfa (Sulfonamide AdvReac Severe hives Verified 06/16/18 15:57 Antibiotics) [SULFA (SULFONAMIDE ANTIBIOTICS)] metformin [METFORMIN] AdvReac Unknown DIARRHEA Verified 06/16/18 15:57 Review of Systems Constitutional Constitutional: Denies anorexia, Denies fatigue, Denies fever(s) and Reports weight loss Cardiovascular Cardiovascular: Denies chest pain and Denies shortness of breath Respiratory Respiratory: Denies cough and Denies dyspnea Gastrointestinal Gastrointestinal: Denies abdominal pain, Denies change in bowel habits, Denies nausea and Denies vomiting Psychiatric Psychiatric: Reports anxiety Endocrine Endocrine: Denies fatigue Exam Vital Signs (past 8 hours): - 07/14/18 23:58 07/15/18 04:37 Temperature 97.7 F 98.5 F Pulse Rate 78 63 Respiratory Rate 18 18 Blood Pressure 128/72 142/66 H Pulse Oximetry 97 97 Oxygen Delivery Method Room Air Oxygen Flow Rate 0 Narrative Exam Narrative: General appearance: Thin older woman resting comfortably in bed. Alert, appears stated age, cooperative. Head: Normocephalic, atraumatic, without obvious abnormality. Eyes: Conjunctivae/corneas clear. EOM's intact. Ears: External ears normal bilaterally. Nose: Nares normal. Mucosa pink and moist. Throat: Mucosa pink and moist. Neck: No adenopathy, supple, symmetric, trachea midline. Lungs: Clear to auscultation bilaterally, no wheezes or crackles. Heart: Regular rate and rhythm, S1, S2 normal, no murmur. Abdomen: Soft, non-tender; bowel sounds normal; no masses, no organomegaly. Extremities: Extremities normal, atraumatic, no edema. Pulses: 2+ and symmetric pedal pulses. Neurologic: Alert and oriented x3. Psych: Mood is very anxious. Affect appropriate. Judgment and insight regarding health issues limited. Perseverates but re-directable. Recent and remote memory intact. Objective Labs Result Diagrams: 07/14/18 20:56 07/14/18 20:56 Labs: Laboratory Results - last 24 hr 07/14/18 07/14/18 20:56 20:56 WBC 5.1 RBC 3.34 L Hgb 11.0 L Hct 32.5 L MCV 97.4 MCH 32.9 MCHC 33.8 RDW 14.2 Plt Count 174 Neut % (Auto) 63.8 Lymph % (Auto) 23.3 L [place] % (Auto) 10.7 Eos % (Auto) 1.7 L Baso % (Auto) 0.5 Neut # (Auto) 3300 Sodium 140 Potassium 4.5 Chloride 103 Carbon Dioxide 30 BUN 43 H Creatinine 0.80 Estimated GFR > 60.0 BUN/Creatinine Ratio 53.8 H Glucose 110 Calcium 9.3 Total Bilirubin 0.3 AST 34 ALT 32 Alkaline Phosphatase 50 Total Protein 6.7 Albumin 4.1 Globulin 2.6 Albumin/Globulin Ratio 1.6 Assessment & Plan (1) Adult failure to thrive: Current visit: Yes Status: Acute (2) Essential hypertension: Current visit: No Status: None (3) Incontinence of feces with fecal urgency: Current visit: No Status: None (4) Acquired hypothyroidism: Current visit: No Status: None (5) Type 2 diabetes mellitus without complication, without long-term current use of insulin: Current visit: No Status: None (6) Frontotemporal dementia: Current visit: No Status: None Plan: Assessment/Plan Narrative: Failure to thrive: Patient has lost 10 lb in the last month which is quite concerning since she was already underweight. I suspect weight loss is due to inadequate calories, at least in part due to access to food. Will ask for a nutrition consult while in the hospital as well as PT and OT evaluations. Patient undoubtedly cannot care for herself at home, especially while her is in the hospital. She states she is ready to pursue assisted living (she has been quite reluctant in the past). Chronic problems of hypertension, hypothyroidism, chronic venous stasis, diet controlled type 2 diabetes are all stable and unchanged. Will continue her home meds as usual. Diet: Regular diet, I am not particularly concerned about diabetes as A1c has been quite low without medication DVT prophylaxis: SCDs Code status: Needs to be updated with patient. Records indicate DNR status. Disposition: Appreciate Care Management assistance finding a safe discharge plan. I do not believe it is safe for the patient to return home by herself.
[2018-07-15] MEDS: LISINOPRIL 20 MG TABLET PO ×2 (09:21→20:21)
[2018-07-15] MEDS: LEVOTHYROXINE 50 MCG TABLET PO (09:21)
--- NOTE | 2018-07-15 10:20 | OT.IP.EVAL ---
Current Diagnoses Hypothyroidism, unspecified (07/14/18) Type 2 diabetes mellitus without complications (07/14/18) Dementia in other diseases classified elsewhere without behavioral disturbance (07/14/18) Other frontotemporal dementia (07/14/18) Essential (primary) hypertension (07/14/18) Fecal urgency (07/14/18) Full incontinence of feces (07/14/18) Adult failure to thrive (07/14/18) Past Medical History (Last Reviewed 07/15/18 @ 14:22 by Dorina Santos DO) History of Whitt's esophagus (Chronic) History of IBS (Chronic) History of anxiety (Chronic) History of colon polyps (Chronic) History of depression (Chronic) History of diabetes mellitus (Chronic) History of diverticulitis (Chronic) History of gastroesophageal reflux (GERD) (Chronic) History of hemorrhoids (Chronic) History of hyperlipidemia (Chronic) History of hypertension (Chronic) History of hypothyroidism (Chronic) History of incontinence of feces (Chronic) History of osteoporosis (Chronic) History of peripheral neuropathy (Chronic) History of restless legs syndrome (Chronic) History of urinary incontinence (Chronic) Scoliosis (Chronic) Chronic venous stasis (Resolved) History of chickenpox (Resolved) History of measles (Resolved) Surgical History (Last Reviewed 07/15/18 @ 14:22 by Dorina Santos DO) History of vein stripping (Resolved) History of bowel resection History of thyroidectomy Status post appendectomy Status post arthroscopy Status post bunionectomy Status post endoscopy Status post hammer toe correction Status post rotator cuff repair Occupational Therapy Inpatient Evaluation/Re-Eval M1 PT/OT-IP Prior Functional Status Start: 07/15/18 12:02 Freq: NEEDED Status: Active Protocol: Document 07/15/18 10:32 AB (Rec: 07/15/18 12:40 AB [id number]) Medical Review Prior Functional Status Medical History Reviewed Yes Communication able to make needs known Mobility and Gait pt stated that she is modified independent with ambulation using 4WW. spouse assists her with showers. Social History Household Members spouse Living Arrangements House Number of Floors (Floors) One Floor Number of Stairs To Enter/Railing? 4 steps to enter with L rail ascending Home Environment Standard Height Toilet Walk in Shower Home Equipment Four Wheel Walker Shower Seat with Backrest Grab Bars Near Toilet Grab Bars In Shower Employment Status Retired Additional Social History Comment pt is living alone at this time. spouse is in the hospital and is going to have surgery. M2 OT-IP Current Condition Start: 07/16/18 09:00 Freq: Status: Active Protocol: Document 07/15/18 10:20 PJM (Rec: 07/16/18 09:24 [facility] [id number]) Occupational Therapy Current Condition Current Condition Evaluation Date 07/15/18 Treatment Diagnosis decreased self care, mobility, cognition; unable to care for self Diagnosis Onset Date 07/15/18 Post Operative Precautions Other Precautions fall risk, short term memory deficits M3 OT- IP Subjective and Pain Start: 07/16/18 09:00 Freq: Status: Active Protocol: Document 07/15/18 10:20 PJM (Rec: 07/16/18 09:24 [facility] [id number]) OT- Subjective Occupational Therapy Visit Type Type Initial Evaluation Visit Start Time 09:45 Visit Stop Time 10:20 Total Visit Minutes 35 Notes Pt performs slowly; distracts self with conversation; very verbal Occupational Therapy Visit Comments Patient Comments I have not had a shower in a long time. OT Pain Assessment Pain When Pain Assessed After Treatment Pain Present Pain Present Pain Reported Location feet Intensity 8 Scale Used chronic BLE/foot pain Description Aching Chronic Pain Behaviors Facial Grimacing Guarding Management Techniques Distraction Re-positioning M4 OT- IP ADL's Start: 07/16/18 09:00 Freq: Status: Active Protocol: Document 07/15/18 10:20 PJM (Rec: 07/16/18 09:24 [facility] [id number]) OT ADL-Grooming General Evaluation Areas Needing Assistance Retrieving/Set-up of Grooming Items Face Washing Glasses Comments OT Grooming Comments SBA after set up in bed OT ADL-Oral Care Comments Oral Care Comments pt declined; wants to shower OT ADL-Dressing General Eval Lower Body Dressing Ability Minimal Assistance Areas Needing Assistance Socks Comments OT Dressing Comments min assist to don compression hose in bed with HOB elevated; SBA to don slip on slippers OT ADL-Toileting General Evaluation Toileting Ability Standby Assistance OT ADL-Bathing Comments OT Bathing Comments MANGLE ROLL OPERATOR's to shower pt today M5 OT- IP IADL's Start: 07/16/18 09:00 Freq: Status: Active Protocol: Document 07/15/18 10:20 PJM (Rec: 07/16/18 09:24 PJ [id number]) OT-Instrumental Activities of Daily Living Deficits IADL Deficits Identified Deficits Home Safety Awareness Awareness of Need for Assistance at Home Decreased Awareness Ability to Problem Solve Emergency Unable to Problem Solve Situations Medication Management Medication Management Caregiver Administers Medication Management Comments pt will need supervision for all medication management due to cognitive status Money Management Money Management Caregiver Provides Assistance Money Management Comments pt will need supervision for all financial director due to cognitive status Meal Preparation Meal Preparation Caregiver Provides Assist Meal Preparation Comments pt will need supervision for all hot meal preparation due to cognitive status Haulage Boss Haulage Boss Caregiver Provides Assist Haulage Boss Comments pt needs assist due to decreased balance and mobility Driving Driving Caregiver Provides Assist Driving Comments pt no longer drives M6 OT- IP Functional Cognition Start: 07/16/18 09:00 Freq: Status: Active Protocol: Document 07/15/18 10:20 PJM (Rec: 07/16/18 09:24 PJ [id number]) Cognitive Factors Limiting Selfcare Function Cognitive Ability Level of Alertness Alert Patient Orientation Name Place Attention Span Ability Unable to Sustain Attention Ability to Follow Commands Able to Follow One Step Commands Memory Description Short Term Impaired Safety Awareness Decreased Recall of Precautions Decreased Ability to Apply Precautions Underestimates Need for Assistance Problem Solving Ability Needs Assist to Identify Solutions Cognitive Comments Cognitive Assessment Comments Pt has obvious short term memory and attention deficits. Pt is very verbal and distracts self with conversation. OT- Vision and Hearing OT- Hearing Assessment OT- Hearing Assessment WFL OT- Vision Assessment Visual Acuity WFL Vision Assessment Comments Pt able to read wall clock accurately. Pt s/p R cataract surgery; wears reading glasses only M7 OT- IP Mobility and Balance Start: 07/16/18 09:00 Freq: Status: Active Protocol: Document 07/15/18 10:20 PJM (Rec: 07/16/18 09:24 PJ [id number]) OT- Bed Mobility Assessment Rolling Type of Rolling Roll to Left Level of Assistance Standby Assistance Head of Bed Elevated Bedrails Supine to Sit Supine to Sit Assist Standby Assistance Head of Bed Elevated Bedrails Scooting Scooting to Edge of Bed Standby Assistance OT-Transfer Assessment Sit to and From Stand Sit to and from Stand Contact Guard Assistance Transfers Transfer Ability Contact Guard Assistance Minimal Assistance Technique Transfer Destination Shower Stall Toilet Transfer Technique Stand Step Pivot Devices Transfer Assistive Devices Gait Belt Front Wheeled Walker Comments Mobility Comments CGA to toilet with wall grab bar and FWW; min assist to step over 1 threshold to shower seat for balance OT- Gait Assessment Gait Gait Assistance Required: Minimum Assistance Assistive Devices Assistive Device Gait Belt Front Wheeled Walker Comments Gait Ability Comments Shuffling gait unless cued to take larger assist; needs assist to maneuver FWW in small spaces. OT- Balance Assessment Sitting Balance and Reactions Static Sitting Balance Ability Good Dynamic Sitting Balance Ability Fair Standing Balance and Reactions Static Standing Balance Ability Fair M8 OT- IP Objective Assessments Start: 07/16/18 09:00 Freq: Status: Active Protocol: Document 07/15/18 10:20 PJ (Rec: 07/16/18 09:24 PJ [id number]) OT Gross Range of Motion Upper Extremity Range of Motion Assessment Within Functional Limits OT Strength Upper Extremity Strength Assessment Within Functional Limits OT- Coordination Assessment Comments Coordination Comments WFL for self care, but impaired by decreased sensation OT-Muscle Tone Assessment Muscle Tone WNL Yes OT Sensation Assessment Comments Summary Comments Pt reports numbness in fingertips of B hands. M9 OT- IP Assessment and Plan Start: 07/16/18 09:00 Freq: Status: Active Protocol: Document 07/15/18 10:20 PJM (Rec: 07/16/18 09:24 PJ [id number]) OT Summary Assessment and Plan Potential Analytic Complexity at Evaluation Low Summary OT Impairments Functional Cognition Functional Mobility Grooming Dressing Toileting Bathing Toilet Transfers Shower Transfers Assessment Summary Low complexity OT assessment completed. Pt presents with significant cognitive deficits with dx of dementia noted. Pt also has performance deficits in functional mobility with FWW, standing grooming, lower body dressing, bathing and toileting. Pt currently requires 24 hr assist for safety and has not been able to care for herself while is in hospital. Recommend SNF for short term rehab to increase functional mobility and self care skills vs home with 24 hr assist and HH services. Goals Grooming Goal Standby Assistance Dressing Goal Standby Assistance Toileting Goal Standby Assistance Bathing Goal Minimal Assistance Toilet Transfer Goal Standby Assistance Shower Transfer Goal Contact Guard Assistance Days to Meet Goals 7 Frequency of Treatment Frequency Of Treatment Once a Day Treatment Plan OT Treatment Plan ADL Training Functional Cognition Training Functional Mobility Patient/Family Education Discharge Planning Discharge Recommendations OT Discharge Recommendations Home with 24/7 Assist vs SNF Rehab Other Discharge Recommendations Pt currently needs 24 hr assist for safety.
--- NOTE | 2018-07-15 10:31 | PT.IIE ---
Surgical History (Last Reviewed 06/21/18 @ 10:45 by Dorina Santos DO) History of vein stripping (Resolved) History of bowel resection History of thyroidectomy Status post appendectomy Status post arthroscopy Status post bunionectomy Status post endoscopy Status post hammer toe correction Status post rotator cuff repair Medical History (Last Reviewed 07/14/18 @ 22:00 by HAYLEY Watson) History of Whitt's esophagus (Chronic) History of IBS (Chronic) History of anxiety (Chronic) History of colon polyps (Chronic) History of depression (Chronic) History of diabetes mellitus (Chronic) History of diverticulitis (Chronic) History of gastroesophageal reflux (GERD) (Chronic) History of hemorrhoids (Chronic) History of hyperlipidemia (Chronic) History of hypertension (Chronic) History of hypothyroidism (Chronic) History of incontinence of feces (Chronic) History of osteoporosis (Chronic) History of peripheral neuropathy (Chronic) History of restless legs syndrome (Chronic) History of urinary incontinence (Chronic) Scoliosis (Chronic) Chronic venous stasis (Resolved) History of chickenpox (Resolved) History of measles (Resolved) Physical Therapy Inpatient Evaluation/Re-Eval M1 PT/OT-IP Prior Functional Status Start: 07/15/18 12:02 Freq: NEEDED Status: Active Protocol: Document 07/15/18 10:32 AB (Rec: 07/15/18 12:40 AB [id number]) Medical Review Prior Functional Status Medical History Reviewed Yes Communication able to make needs known Mobility and Gait pt stated that she is modified independent with ambulation using 4WW. spouse assists her with showers. Social History Household Members spouse Living Arrangements House Number of Floors (Floors) One Floor Number of Stairs To Enter/Railing? 4 steps to enter with L rail ascending Home Environment Standard Height Toilet Walk in Shower Home Equipment Four Wheel Walker Shower Seat with Backrest Grab Bars Near Toilet Grab Bars In Shower Employment Status Retired Additional Social History Comment pt is living alone at this time. spouse is in the hospital and is going to have surgery. M2 PT-IP Current Condition Start: 07/15/18 12:02 Freq: NEEDED Status: Active Protocol: Document 07/15/18 10:32 AB (Rec: 07/15/18 12:40 AB [email or web address]) Physical Therapy Current Condition Current Condition Evaluation Date 07/15/18 Treatment Diagnosis anxiety; failure to thrive; difficulty in walking Onset Date 07/14/18 Precautions Other Precautions falls M3 PT-IP Subjective Start: 07/15/18 12:02 Freq: NEEDED Status: Active Protocol: Document 07/15/18 10:32 AB (Rec: 07/15/18 12:40 AB [email or web address]) Subjective Physical Therapy Visit Type Type Initial Evaluation Visit Start Time 10:31 Visit Stop Time 11:01 Total Visit Minutes 30 Number of CERTIFIED CYTOTECHNOLOGIST Visits 0 Physical Therapy Visit Comments Patient Comments i am thinking to go to an assisted living Therapy Pain Assessment Pain When Pain Assessed At Rest Pain Present Pain Present Pain Reported Location feet Intensity 7 Scale Used Numeric (1 - 10) Description Chronic M4 PT-IP Mobility and Gait Start: 07/15/18 12:02 Freq: NEEDED Status: Active Protocol: Document 07/15/18 10:32 AB (Rec: 07/15/18 12:40 AB [email or web address]) PT-Bed Mobility Assessment Supine to Sit Supine to Sit Standby Assistance Sit to Supine Sit to Supine Standby Assistance PT-Transfer Assessment Sit to and From Stand Sit to and from Stand Contact Guard Assistance Equipment Transfer Assistive Device Gait Belt Front Wheeled Walker Transfer Ability Level of Assist Contact Guard Assistance Minimal Assistance Gait Assessment Gait Gait Assistance Required: Contact Guard Assist Minimum Assistance Distance (Feet) 75 Able to Maintain Weight Bearing Status Yes During Gait Assistive Devices Assistive Device Gait Belt Front Wheeled Walker Orthotic/Prosthetic Devices or Brace: No Gait Deviations General Gait Pattern Antalgic Decreased Stride Length Decreased Feet Clearance Flexed Trunk Lateral Trunk Lean Factors Limiting Gait Function Factors Limiting Gait Function Decreased Activity Tolerance Decreased Strength Difficulty Following Directions Limited Range of Motion Pain Poor Balance Poor Safety Awareness Comments Gait Comments pt can be impulsive and has decrease safety awareness affecting mobility independence. PT-Balance Assessment Sitting Balance and Reactions Static Sitting Balance Ability Good Dynamic Sitting Balance Ability Good Standing Balance and Reactions Static Standing Balance Ability Fair Dynamic Standing Balance Ability Fair Device Used FWW M5 PT-IP Objective Assessments Start: 07/15/18 12:02 Freq: NEEDED Status: Active Protocol: Document 07/15/18 10:32 AB (Rec: 07/15/18 12:40 AB [email or web address]) Orientation Orientation/Cognition Level of Alertness Alert Orientation Name Situation Safety Awareness Decreased Safety Awareness Memory Description Short Term Impaired Gross Range of Motion Lower Extremity ROM Assessment Bilaterally Impaired Impairments has decrease trunk ROM as well Strength Lower Extremity Strength Assessment Within Functional Limits M6 PT-IP Treatment Start: 07/15/18 12:02 Freq: NEEDED Status: Active Protocol: Document 07/15/18 10:32 AB (Rec: 07/15/18 12:40 AB [email or web address]) Physical Therapy Treatment Education Education Provided Safety M7 PT-IP Assessment and Plan Start: 07/15/18 12:02 Freq: NEEDED Status: Active Protocol: Document 07/15/18 10:32 AB (Rec: 07/15/18 12:40 AB [email or web address]) PT Summary Assessment and Plan Potential Rehabilitation Potential Good Status of Condition at Evaluation Stable Summary Impairments Pain ROM Strength Balance Coordination Sensation Tone Cognition Bed Mobility Transfers Gait Activity Tolerance Assessment Summary pt requiring CGA to min A with mobility using FWW and has decrease safety awareness. pt at this time is living alone as spouse is in the hospital per pt and will be having surgery. pt requires 24/7 assist at this time and will benefit from SNF rehab. if pt goes home, pt requires 24/7 assist and homehealth services . Goals Bed Mobility Goal Independent Transfer Goal Independent Four Wheeled Walker Gait Goal Independent Four Wheel Walker Gait Distance 200 Other Goals short term goals: increase bed mobility to independent, transfers using 4WW mod I and ambulation using 4WW mod I ~ 150 ft prison goals: increae ambulation using 4WW mod I ~ 200 ft. Days to Meet Goals 3 Frequency of Treatment Frequency Of Treatment Once a Day Treatment Plan Physical Therapy Treatment Plan Bed Mobility Training Transfer Training Gait Training Therapeutic Exercise Balance Retraining Post Op Education Discharge Planning Hot or Cold Pack Neuromuscular Re-ed Coordination Retraining Manual Therapy Recommendations To Nursing Amount of Assist Needed 1 Person Assist Discharge Recommendations PT Discharge Recommendations Home with 24/7 Assist
[2018-07-15] MEDS: ROPINIROLE 0.25 MG TABLET PO ×3 (11:11→20:21)
[2018-07-15] MEDS: FERROUS SULFATE 325 MG TABLET PO (11:11)
[2018-07-15] MEDS: LOPERAMIDE 2 MG/10 ML UDC 1 MG PO ×2 (11:11→17:05)
[2018-07-15] MEDS: CHOLECALCIFEROL (VITAMIN D3) 1,000 UNIT TABLET 1000 UNIT PO (11:11)
[2018-07-15] MEDS: SODIUM CHLORIDE 0.9% 1,000 ML 125 ML IV ×2 (12:53→21:20)
--- NOTE | 2018-07-15 15:29 | PC.NURSE ---
Day Shift- Pt A&OX4, able to make her needs known using call light, high fall risk precautions in place, bed/chair alarm on. Pt OOB to shower with WASHING TUB OPERATOR/OT, back to chair with PT. Ambulated around 1015. Pt wanted only a few meds at 0930, wanting them spaced out in time. Rest of meds given around 1120. Pt wanted her amlodipine, 2nd dose of immodium, and Citalopram in evening around 1800 to coincide with her home schedule. Skin intact, buttocks slightly reddened, blanchable, right FA purple bruising, skin intact but fragile and dry. SCD's to BLE not placed as pt was to shower and up in chair, pt aware of need to place once in bed. Pt given clip board and paper to write her questions down for tomorrow. Does state that she is no longer going to have Meals on Wheels service after 07/18. Wanted diet changed to diabetic as she follows this at home, diet changed from regular to diabetic. No other voiced concerns.
[2018-07-15] MEDS: CITALOPRAM 20 MG TABLET PO (17:05)
[2018-07-15] MEDS: AMLODIPINE 5 MG TABLET PO (17:05)
[2018-07-15] MEDS: PRAVASTATIN 20 MG TABLET 40 MG PO (20:21)
[2018-07-16] VITALS (11 sets, daily range): BP systolic 88–149; BP diastolic 48–85; PULSE 55–64; RESP 16–20; TEMP 36.1–36.8; O2SAT 95–100
[2018-07-16] MEDS: LEVOTHYROXINE 50 MCG TABLET PO (06:29)
[2018-07-16] MEDS: PANTOPRAZOLE 20 MG TABLET PO (06:29)
--- NOTE | 2018-07-16 08:34 | PM.PN.1 ---
Subjective Date Patient Seen: 07/16/18 Time Patient Seen: 08:00 Interval history: Patient is very concerned this morning about cancelling her Meals on Wheels service. She is also very concerned that her next clinic appointment is not until August. She is worried about her living situation and again states that she is ready to go into assisted living. She would prefer not to be in the same facility as her . They have been struggling for quite some time despite being for over 50 years. She is easily frustrated by his lack of attention to detail. He says he is ready to sell the house benign do not believe that. Exam Vital Signs (past 8 hours): - 07/16/18 01:00 07/16/18 06:53 Temperature 97.6 F Pulse Rate 60 Respiratory Rate 16 Blood Pressure 149/85 H Pulse Oximetry 98 100 Oxygen Delivery Method Room Air Oxygen Flow Rate 0 Narrative Exam Narrative: General: Awake and alert, very anxious this morning HEENT: NCAT, EOMI, moist oral mucosa CV: Regular rate and rhythm, no murmurs, rubs or gallops Lungs: CTAB, no wheezes, rales, or rhonchi Abdomen: Soft, nontender; bowel tones active; no hepatosplenomegaly Extremities: Warm, no edema Objective Labs Result Diagrams: 07/14/18 20:56 07/14/18 20:56 Assessment & Plan (1) Adult failure to thrive: Current visit: Yes Status: Acute (2) Essential hypertension: Current visit: No Status: None (3) Venous insufficiency of both lower extremities: Current visit: No Status: None (4) Type 2 diabetes mellitus without complication, without long-term current use of insulin: Current visit: No Status: None (5) Underweight: Current visit: No Status: None (6) Frontotemporal dementia: Current visit: No Status: None (7) Generalized anxiety disorder: Current visit: Yes Status: Acute Plan: Assessment/Plan Narrative: Patient remains in the hospital while awaiting a safe discharge plan. Greatly appreciate the efforts of our social workers with this difficult situation. She continues to have a great deal of anxiety so will increase citalopram to 40 mg daily. Chronic problems of type 2 diabetes, hypertension, chronic venous stasis are stable and unchanged. Continue current medications. Disposition: Patient is medically ready for discharge when a safe discharge plan becomes available.
[2018-07-16] MEDS: LOPERAMIDE 2 MG/10 ML UDC 1 MG PO ×2 (09:44→17:02)
[2018-07-16] MEDS: ROPINIROLE 0.25 MG TABLET PO ×3 (09:45→20:40)
[2018-07-16] MEDS: CHOLECALCIFEROL (VITAMIN D3) 1,000 UNIT TABLET 1000 UNIT PO (09:46)
[2018-07-16] MEDS: FERROUS SULFATE 325 MG TABLET PO (09:46)
--- NOTE | 2018-07-16 11:29 | PT.IPTN ---
Current Diagnoses Hypothyroidism, unspecified (07/14/18) Type 2 diabetes mellitus without complications (07/14/18) Dementia in other diseases classified elsewhere without behavioral disturbance (07/14/18) Other frontotemporal dementia (07/14/18) Essential (primary) hypertension (07/14/18) Fecal urgency (07/14/18) Full incontinence of feces (07/14/18) Adult failure to thrive (07/14/18) Physical Therapy Treatment Note M2 PT-IP Current Condition Start: 07/15/18 12:02 Freq: NEEDED Status: Active Protocol: Document 07/15/18 10:32 AB (Rec: 07/15/18 12:40 AB [id number]) Physical Therapy Current Condition Current Condition Evaluation Date 07/15/18 Treatment Diagnosis anxiety; failure to thrive; difficulty in walking Onset Date 07/14/18 Precautions Other Precautions falls M3 PT-IP Subjective Start: 07/15/18 12:02 Freq: NEEDED Status: Active Protocol: Document 07/16/18 11:15 NATALIE (Rec: 07/16/18 11:28 LJ [id number]) Subjective Physical Therapy Visit Type Type Initial Evaluation Visit Start Time 10:10 Visit Stop Time 10:40 Total Visit Minutes 30 Physical Therapy Visit Comments Patient Comments Pt very worried about her and what she is supposed to be doing here in the hospital Therapy Pain Assessment Pain When Pain Assessed At Rest Pain Present Pain Present Denied Pain M4 PT-IP Mobility and Gait Start: 07/15/18 12:02 Freq: NEEDED Status: Active Protocol: Document 07/16/18 11:15 NATALIE (Rec: 07/16/18 11:28 LJ [id number]) PT-Bed Mobility Assessment Supine to Sit Supine to Sit Standby Assistance Sit to Supine Sit to Supine Standby Assistance PT-Transfer Assessment Sit to and From Stand Sit to and from Stand Contact Guard Assistance Equipment Transfer Assistive Device Gait Belt Front Wheeled Walker Transfer Ability Level of Assist Contact Guard Assistance Minimal Assistance Gait Assessment Gait Gait Assistance Required: Contact Guard Assist Minimum Assistance Distance (Feet) 30 Able to Maintain Weight Bearing Status Yes During Gait Assistive Devices Assistive Device Gait Belt Front Wheeled Walker Orthotic/Prosthetic Devices or Brace: No Gait Deviations General Gait Pattern Antalgic Decreased Stride Length Decreased Feet Clearance Flexed Trunk Lateral Trunk Lean Factors Limiting Gait Function Factors Limiting Gait Function Decreased Activity Tolerance Decreased Strength Difficulty Following Directions Limited Range of Motion Pain Poor Balance Poor Safety Awareness Comments Gait Comments Pt refused ambulation outside the room. Very slow with ambulation with pronounced shuffle gait. Pt able to control descent into chair. PT-Balance Assessment Sitting Balance and Reactions Static Sitting Balance Ability Good Dynamic Sitting Balance Ability Good Standing Balance and Reactions Static Standing Balance Ability Fair Dynamic Standing Balance Ability Fair Device Used FWW M5 PT-IP Objective Assessments Start: 07/15/18 12:02 Freq: NEEDED Status: Active Protocol: Document 07/15/18 10:32 AB (Rec: 07/15/18 12:40 AB [id number]) Orientation Orientation/Cognition Level of Alertness Alert Orientation Name Situation Safety Awareness Decreased Safety Awareness Memory Description Short Term Impaired Gross Range of Motion Lower Extremity ROM Assessment Bilaterally Impaired Impairments has decrease trunk ROM as well Strength Lower Extremity Strength Assessment Within Functional Limits M6 PT-IP Treatment Start: 07/15/18 12:02 Freq: NEEDED Status: Active Protocol: Document 07/16/18 11:15 LJ (Rec: 07/16/18 11:28 LJ [id number]) Physical Therapy Treatment Education Education Provided Safety M7 PT-IP Assessment and Plan Start: 07/15/18 12:02 Freq: NEEDED Status: Active Protocol: Document 07/16/18 11:15 LJ (Rec: 07/16/18 11:28 LJ [id number]) PT Summary Assessment and Plan Potential Rehabilitation Potential Good Summary Impairments Pain ROM Strength Balance Coordination Sensation Tone Cognition Bed Mobility Transfers Gait Activity Tolerance Assessment Summary Pt demonstrates LE strength and flexibility in bed mobility and sit<>stand. Decreased to no foot clearance during gait. Pt confused about why she is in the hospital and concerned about the status of her . Goals Bed Mobility Goal Independent Transfer Goal Independent Four Wheeled Walker Gait Goal Independent Four Wheel Walker Other Goals short term goals: increase bed mobility to independent, transfers using 4WW mod I and ambulation using 4WW mod I ~ 150 ft mcc goals: increae ambulation using 4WW mod I ~ 200 ft. Frequency of Treatment Frequency Of Treatment Once a Day Treatment Plan Physical Therapy Treatment Plan Bed Mobility Training Transfer Training Gait Training Therapeutic Exercise Balance Retraining Post Op Education Discharge Planning Hot or Cold Pack Neuromuscular Re-ed Coordination Retraining Manual Therapy Recommendations To Nursing Amount of Assist Needed 1 Person Assist Discharge Recommendations PT Discharge Recommendations Home with 13/05 Assist
--- NOTE | 2018-07-16 13:25 | CM.DPC ---
DCP Cont: Per MD, pt mostly medically stable but increasing pt's anxiety medication to see if it helps to alleviate some of pt's anxiety more appropriately but pt seems to respond with reminders of taking deep breaths and relaxing her body and letting go of some of her worries. Per RN and MD, pt discussing her preference of not rooming with her in the same room due to feeling that he can be somewhat oppressive and controlling and verbally demanding but denies any physical aggression or abuse. Pt feels that having her own room and space would be ideal. PIPO spoke to Ana Rosa from [facility] ([phone]) who confirms that she completed a bedside assessment with the pt and her son Leo today and feels that the pt would be a good fit at [facility] and that they could accept the pt, even by tomorrow, if son can help complete paperwork and drop off a few of the pt's belongings. SRI Barron faxed requested clinicals to [facility] to review. PIPO called pt's son Leo ([phone]) who confirms that he is agreeable to pt going to [facility] and its his preference. SW updated him that pt likely will be stable for d/c tomorrow and encouraged him to follow up with [facility] for d/c planning. Son states he will to go to [facility] now and complete pwk and financial information towards possible move into [facility] tomorrow. Leo also states pt's spouse may be getting discharged home from [facility] today and that he will try to coordinate those plans after he goes to [facility]. Plan: SW to follow closely with Ana Rosa at [facility] to confirm that pt's son Leo completed needed pwk at [facility] and a plan for dropping off belongings towards possible d/c and move into [facility] if medically stable. JEROD Gandhi
--- NOTE | 2018-07-16 13:25 | CM.DPC ---
Clinicals faxed to Addie Stewart
[2018-07-16] MEDS: SODIUM CHLORIDE 0.9% 1,000 ML 125 ML IV ×2 (14:20→22:16)
[2018-07-16] MEDS: AMLODIPINE 5 MG TABLET PO (17:03)
[2018-07-16] MEDS: CITALOPRAM 20 MG TABLET PO (17:03)
[2018-07-16] MEDS: ACETAMINOPHEN 325 MG TABLET 650 MG PO (20:38)
[2018-07-16] MEDS: LISINOPRIL 20 MG TABLET PO (20:40)
[2018-07-16] MEDS: PRAVASTATIN 20 MG TABLET 40 MG PO (20:42)
[2018-07-17 01:15] VITALS: O2SAT 98
[2018-07-17] MEDS: ACETAMINOPHEN 325 MG TABLET 650 MG PO (03:15)
--- NOTE | 2018-07-17 03:24 | PC.NURSE ---
Pts. bottom is slightly red, pt. states she can't lay on her side, it cause her too much discomfort so bridge bottom with pillows.
--- NOTE | 2018-07-17 05:09 | PC.NURSE ---
Barrier cream applied to perirectal area after bedpan use.
[2018-07-17] MEDS: LEVOTHYROXINE 50 MCG TABLET PO (05:54)
[2018-07-17] MEDS: PANTOPRAZOLE 20 MG TABLET PO (05:54)
[2018-07-17 06:13] VITALS: BP 142/73; PULSE 57; RESP 18; TEMP 37; O2SAT 94
[2018-07-17] MEDS: SODIUM CHLORIDE 0.9% 1,000 ML 125 ML IV (06:53)
[2018-07-17] MEDS: LORazepam 2 MG/ML SYRINGE 0.5 MG IV (07:51)
[2018-07-17 08:00] VITALS: BP 134/84; PULSE 60; RESP 16; TEMP 36.4; O2SAT 93
[2018-07-17] MEDS: SODIUM CHLORIDE 0.9% FLUSH 10 ML IV (09:00)
[2018-07-17 09:07] VITALS: BP 133/73; PULSE 72
[2018-07-17] MEDS: LISINOPRIL 20 MG TABLET PO (09:07)
[2018-07-17] MEDS: LOPERAMIDE 2 MG/10 ML UDC 1 MG PO (09:07)
[2018-07-17] MEDS: ROPINIROLE 0.25 MG TABLET PO ×2 (09:07→13:07)
[2018-07-17] MEDS: FERROUS SULFATE 325 MG TABLET PO (09:08)
[2018-07-17] MEDS: CHOLECALCIFEROL (VITAMIN D3) 1,000 UNIT TABLET 1000 UNIT PO (09:08)
[2018-07-17 09:30] VITALS: O2SAT 94
--- NOTE | 2018-07-17 10:36 | PM.DS.1 ---
History of Present Illness Chief complaint: Anxiety Narrative: Patient is a 78-year-old female with diet-controlled diabetes, hypertension, chronic lower extremity venous stasis, anxiety, and frontotemporal dementia. Patient lives at home with her and has declined assisted living in the past. Her was admitted to [facility] on 07/12/18 for HHT and clots in his heart. Since that time she has had difficulty caring for herself and has had worsening anxiety. Due to severe arthritis in her hands she cannot open cans so has been eating very little. She relies on her for transportation as she no longer drives. Patient states she has not had a shower since June 28 because she needs help. The day prior to admission a caregiver named Lizabeth came over and wanted to help her with a shower shower but they did get that far. The night before admission her son came over and was concerned about her welfare so called EMS who brought her to [facility]. In the ER patient was found to be quite anxious about her and struggles at home. Symptoms improved with a small dose of lorazepam. Her son stated he could not care for her as he had family business requiring his attention. CBC, CMP and UA were negative. Patient denies any new acute symptoms or recent illnesses. She admits to poor oral intake as she cannot eat many of the foods provided by her son or due to her chronic bowel issues. She repeatedly states she sends her son or her to the store and ?they always bring home the wrong things. She goes on to complain in detail about her relationship with her and how he can never get anything right for her. Discharge Providers Date of admission: 07/14/18 22:09 Primary care physician: Dorina Santos DO Consults: 07/14/18 22:03 Consult to Physician Routine Comment: Consulting Provider: Dorina Santos Reason for consultation: admission 07/15/18 07:55 Consult to Occupational Therapy Evaluate & Treat Comment: Failure to thrive, discharge planning Physician Instructions: Evaluate and treat Consult to Physical Therapy Evaluate & Treat Comment: Failure to thrive, discharge planning Physician Instructions: Evaluate and Treat Consult to Superintendent Track Routine Comment: failure to thrive, discharge planning 07/15/18 14:35 Consult to Dietitian, Adult Routine Comment: Reason For Exam: failure to thrive Discharge provider: Dorina Santos DO Summary Discharge Diagnosis: Failure to thrive Generalized anxiety disorder Frontotemporal dementia Diet controlled type 2 diabetes Hypothyroidism Hypertension Hospital Course: Patient's hospital course was unremarkable while awaiting a safe discharge plan. Patient did not have any acute issues other than inability to care for herself at home which was supported by a 10 lb weight loss in the last month. She was seen by PT and OT who recommended 24 hr assistance. Care management coordinated discharge to [facility]. Patient was very appreciative of the help. She remained quite anxious but was also easily redirected. She responds well to coaching and reassurance. Patient requested to be placed in a separate room from her who is also being discharged to [facility] from [facility]. Chronic issues of diabetes, hypothyroidism, restless leg syndrome, chronic venous stasis were stable and at baseline. Patient does have frontal temporal dementia which affects her executive function and thought processes. Her memory is quite sharp however she tends to perseverate on small details and is bothered by other's lack of attention to detail (particularly her ). Asked that she follow up in clinic in two weeks to see how she is doing. Exam Vital Signs (past 8 hours): - 07/17/18 06:13 07/17/18 08:00 07/17/18 09:07 Temperature 98.6 F 97.6 F Pulse Rate 57 L 60 72 Respiratory Rate 18 16 Blood Pressure 142/73 H 134/84 133/73 Pulse Oximetry 94 93 07/17/18 09:30 Temperature Pulse Rate Respiratory Rate Blood Pressure Pulse Oximetry 94 Oxygen Delivery Method Room Air Oxygen Flow Rate 0 Narrative Exam Narrative: General: Well-appearing thin older woman. Awake and alert, no acute distress. HEENT: NCAT, EOMI, moist oral mucosa CV: Regular rate and rhythm, no murmurs, rubs or gallops Lungs: CTAB, no wheezes, rales, or rhonchi Abdomen: Soft, nontender; bowel tones active; no hepatosplenomegaly Extremities: Warm, no edema, 2+ pedal pulses bilaterally Psych: AAO x3. Mood is anxious. Affect appropriate. Recent and remote memory intact. Insight limited. Objective Labs Result Diagrams: 07/14/18 20:56 07/14/18 20:56 Discharge Plan Discharge Plan Patient Disposition: Assisted Living Other facility: [facility] Under care of provider: Dorina Santos DO Discharge Med Rec/Prescriptions Prescriptions: Continue ferrous sulfate [Iron (ferrous sulfate)] 325 MG tablet 325 mg PO QDAY Qty: 30 RF: 1 cholecalciferol (vitamin D3) [Vitamin D3] 1,000 UNIT tablet 1,000 u PO QDAY Qty: 0 RF: 0 biotin 1 MG capsule 1 mg PO Q DAY Qty: 0 RF: 0 peg 400-propylene glycol [Systane (propylene glycol)] 15 ML drops 1 dose OP DIRECTED Qty: 0 RF: 0 pravastatin 40 MG tablet 40 mg PO HS Qty: 90 RF: 3 lisinopril [Prinivil] 20 MG tablet 20 mg PO BID Qty: 180 RF: 3 amlodipine [Norvasc] 5 MG tablet 5 mg PO QDAY Qty: 90 RF: 3 omeprazole 20 MG capsule,delayed release(DR/EC) 20 mg PO QDAY Qty: 90 RF: 10 folic acid 0.4 MG tablet 0.4 mg PO QDAY Qty: 0 RF: 0 loperamide [Imodium A-D] 1 MG/7.5 ML liquid 5 ml PO BID Qty: 0 RF: 0 citalopram [Celexa] 20 MG tablet 20 mg PO QDAY Qty: 90 RF: 2 acetaminophen 650 MG tablet extended release 650 mg PO Q8HP PRN (Reason: Pain (Scale Score 1-3)) Qty: 0 RF: 0 ropinirole [Requip] 0.25 mg tablet 0.25 mg PO QID Qty: 120 RF: 5 levothyroxine 50 mcg tablet 50 mcg PO DAILY Qty: 90 RF: 1 triamcinolone acetonide 0.5 % cream 1 applictn TOP TID RF: 0 blood sugar diagnostic strip RF: 0 Follow up/Referrals: Dorina Santos DO [Primary Care Provider] - 2 Weeks (please call & schedule follow up with Dr Santos for 2 weeks from discharge [phone]) Discharge Orders: Discharge (Order); Ordered 07/17/18 Ordered By: Dorina Santos Discharge Health Status Brief summary of current health status: 78 year old female with diet controlled type 2 diabetes, hypothyroidism RLS, frontotemporal dementia, generalized anxiety. No longer able to care for herself at home, needs assisted living. Provider Discharge Instructions Diet: Carb-consistent/Diabetic Liquid consistency: Normal/Thin Food texture: Regular Visit Report/Discharge Packet Instructions: DI for Anxiety -- Adult, How to Prevent Falls Discharge Data Primary Care Provider: Dorina Santos Attending Provider: Dorina Santos Admit Date/Time: 07/14/18 22:09
--- NOTE | 2018-07-17 11:38 | PT.IPTN ---
Current Diagnoses Hypothyroidism, unspecified (07/14/18) Type 2 diabetes mellitus without complications (07/14/18) Dementia in other diseases classified elsewhere without behavioral disturbance (07/14/18) Generalized anxiety disorder (07/14/18) Other frontotemporal dementia (07/14/18) Essential (primary) hypertension (07/14/18) Venous insufficiency (chronic) (peripheral) (07/14/18) Fecal urgency (07/14/18) Full incontinence of feces (07/14/18) Adult failure to thrive (07/14/18) Underweight (07/14/18) Physical Therapy Treatment Note M2 PT-IP Current Condition Start: 07/15/18 12:02 Freq: NEEDED Status: Active Protocol: Document 07/15/18 10:32 AB (Rec: 07/15/18 12:40 AB [id number]) Physical Therapy Current Condition Current Condition Evaluation Date 07/15/18 Treatment Diagnosis anxiety; failure to thrive; difficulty in walking Onset Date 07/14/18 Precautions Other Precautions falls M3 PT-IP Subjective Start: 07/15/18 12:02 Freq: NEEDED Status: Active Protocol: Document 07/17/18 11:01 CLB (Rec: 07/17/18 11:38 CLB [id number]) Subjective Physical Therapy Visit Type Type Treatment Note Visit Start Time 11:01 Visit Stop Time 11:17 Total Visit Minutes 16 Number of OXIDE FURNACE TENDER Visits 2 Physical Therapy Visit Comments Patient Comments Pt feeling better today and excited to be going to [place] [id number] PT-IP Mobility and Gait Start: 07/15/18 12:02 Freq: NEEDED Status: Active Protocol: Document 07/17/18 11:01 CLB (Rec: 07/17/18 11:38 CLB [id number]) PT-Transfer Assessment Sit to and From Stand Sit to and from Stand Contact Guard Assistance Equipment Transfer Assistive Device Gait Belt Front Wheeled Walker Transfer Ability Level of Assist Contact Guard Assistance Comments Mobility Comments Pt was CGA for sit<>stand. Gait Assessment Gait Gait Assistance Required: Contact Guard Assist 1 Person Assist Distance (Feet) 50 Assistive Devices Assistive Device Gait Belt Front Wheeled Walker Orthotic/Prosthetic Devices or Brace: No Gait Deviations General Gait Pattern Antalgic Decreased Stride Length Decreased Feet Clearance Flexed Trunk Lateral Trunk Lean Factors Limiting Gait Function Factors Limiting Gait Function Decreased Activity Tolerance Decreased Strength Difficulty Following Directions Limited Range of Motion Pain Poor Balance Poor Safety Awareness Comments Gait Comments Pt required CGA with ambulation. Pt continues to move slowly but with improved balance and safety awareness using FWW. PT-Balance Assessment Sitting Balance and Reactions Static Sitting Balance Ability Good Dynamic Sitting Balance Ability Good Standing Balance and Reactions Static Standing Balance Ability Fair Dynamic Standing Balance Ability Fair Device Used FWW M5 PT-IP Objective Assessments Start: 07/15/18 12:02 Freq: NEEDED Status: Active Protocol: Document 07/15/18 10:32 AB (Rec: 07/15/18 12:40 AB [email or web address]) Orientation Orientation/Cognition Level of Alertness Alert Orientation Name Situation Safety Awareness Decreased Safety Awareness Memory Description Short Term Impaired Gross Range of Motion Lower Extremity ROM Assessment Bilaterally Impaired Impairments has decrease trunk ROM as well Strength Lower Extremity Strength Assessment Within Functional Limits M6 PT-IP Treatment Start: 07/15/18 12:02 Freq: NEEDED Status: Active Protocol: Document 07/17/18 11:01 CLB (Rec: 07/17/18 11:38 CLB [id number]) Physical Therapy Treatment Exercises Exercises Ankle Pumps Quad Sets Seated Knee Flexion/Extension Education Education Provided Safety M7 PT-IP Assessment and Plan Start: 07/15/18 12:02 Freq: NEEDED Status: Active Protocol: Document 07/17/18 11:01 CLB (Rec: 07/17/18 11:38 CLB [id number]) PT Summary Assessment and Plan Potential Rehabilitation Potential Good Summary Impairments Pain ROM Strength Balance Coordination Sensation Tone Cognition Bed Mobility Transfers Gait Activity Tolerance Assessment Summary Pt continues to ambulate slowly with decreased foot clearance and forward flexed posture. Pt was CGA for ambulation and had improved balance and safety awareness. Goals Bed Mobility Goal Independent Transfer Goal Independent Four Wheeled Walker Gait Goal Independent Four Wheel Walker Other Goals short term goals: increase bed mobility to independent, transfers using 4WW mod I and ambulation using 4WW mod I ~ 150 ft terminal press operator goals: increase ambulation using 4WW mod I ~ 200 ft. Frequency of Treatment Frequency Of Treatment Once a Day Treatment Plan Physical Therapy Treatment Plan Bed Mobility Training Transfer Training Gait Training Therapeutic Exercise Balance Retraining Post Op Education Discharge Planning Hot or Cold Pack Neuromuscular Re-ed Coordination Retraining Manual Therapy Recommendations To Nursing Amount of Assist Needed 1 Person Assist Discharge Recommendations PT Discharge Recommendations Home with 13/05 Assist
--- NOTE | 2018-07-17 14:26 | CM.DPC ---
DC Note: TC placed to Ana Rosa this morning, DNS/Addie MOLINA P# [phone]; updated that pt was medically stable for DC today. Per Ana Rosa, Pt is okay to admit today. Pt and her son remained aware and agreeable to plan. With assist from KATYA Conteh; coordinated pt's DC to [facility]; [facility] staff scheduled to pick pt up at 1300. KATYA Conteh made aware and agreeable to p/u time. Dr Santos completed this DC order and signed med list; this and DC Summary were faxed to [facility]. Ana Rosa made aware. JEROD Hamlin
== END 2018-07-17 13:36 ==
LOC: ED 22:03 → AC 22:09
PROVIDERS: Admitting Provider Family Medicine; Emergency Provider Nurse Practitioner Family; Family Provider Family Medicine; PCP Family Medicine; Visit Provider Family Medicine
DX: F41.9 Anxiety disorder, unspecified (principal); R62.7 Adult failure to thrive; R63.6 Underweight; R15.9 Full incontinence of feces; R15.2 Fecal urgency; I87.2 Venous insufficiency (chronic) (peripheral); G31.09 Other frontotemporal neurocognitive disorder; E11.9 Type 2 diabetes mellitus without complications; I10 Essential (primary) hypertension; E03.9 Hypothyroidism, unspecified
CPT/HCPCS: 36591; 80053; 81003; 82962; 85025; 96361; 96374; 96376; 97110; 97116; 97161; 97165; 99217; 99219; 99225; 99282; 99284; G0378; J2060

== ENCOUNTER → 2018-07-29 14:48 | Outpatient (CLI) | payer MEDICARE, SELFPAY ==
[2018-07-14 22:30] VITALS: BMI 16.8
--- NOTE | 2018-07-29 14:51 | DI.RAD.S_ITS ---
PROCEDURE: XR RIBS LT MIN 3V W CXR1V INDICATIONS: Rib pain s/p fall TECHNIQUE: 2 views of the left ribs were acquired, along with a single view chest. COMPARISON: None. FINDINGS: Surgical changes and devices: None. Bones and chest wall: Cortical irregularity involving left posterior lateral seventh, eighth and ninth ribs are seen suggestive of minimally displaced left posterior lateral rib fractures. No suspicious bony lesions. Overlying soft tissues appear unremarkable. Lungs and pleura: No pleural effusions or pneumothorax. Left basilar atelectasis is seen. Mediastinum: Mediastinal contours appear normal. Heart size is normal. IMPRESSION: Slightly displaced left posterior lateral seventh, eighth and ninth rib fractures. No focal infiltrate or pneumothorax. Left basilar atelectasis. Dictated by: Jeff Bolivar M.D. on 07/29/2018 at 15:36 Approved by: Jeff Bolivar M.D. on 07/29/2018 at 15:40
== END ==
PROVIDERS: PCP Family Medicine; Visit Provider Registered Nurse
DX: S22.42XA Multiple fractures of ribs, left side, initial encounter for closed fracture (principal); R07.81 Pleurodynia; W19.XXXA Unspecified fall, initial encounter
CPT/HCPCS: 71101

== ENCOUNTER 2018-09-06 01:45 | Emergency (ER) | payer MEDICARE, SELFPAY ==
--- NOTE | 2018-09-06 01:49 | DI.RAD.S_ITS ---
PROCEDURE: XR CHEST 1V INDICATIONS: fall, unknown if injury, dementia TECHNIQUE: One view of the chest was acquired. COMPARISON: [facility], CT, C-SPINE WITHOUT CONTRAST, 02/15/2017, 3:20. [facility], CR, CHEST 2 VIEW, 03/23/2009, 14:41. [facility], CR, CHEST 2 VIEW, 01/07/2017, 16:36. [facility], CR, CHEST 2 VIEW, 12/05/2016, 15:10. [facility], CR, CHEST 1 VIEW, 02/15/2017, 3:15. FINDINGS: Surgical changes and devices: None. Lungs and pleura: Chronic diffuse interstitial prominence bilaterally. Right apical scarring. No pleural effusions or pneumothorax. Mediastinum: Mediastinal contours appear normal. Heart size is normal. Bones and chest wall: No suspicious bony lesions. Overlying soft tissues appear unremarkable. IMPRESSION: 1. No acute cardiopulmonary disease. 2. Right apical scars. 3. Chronic diffuse interstitial prominence. Dictated by: Latesha Tovar M.D. on 09/06/2018 at 7:45 Approved by: Latesha Tovar M.D. on 09/06/2018 at 7:49
--- NOTE | 2018-09-06 01:49 | DI.CT.S_ITS ---
PROCEDURE: CT HEAD/BRAIN WO CON INDICATIONS: fall, dementia, unclear if head injury TECHNIQUE: Noncontrast 4.5 mm thick angled axial sections acquired from the foramen magnum to the vertex, with coronal and sagittal reformats. For radiation dose reduction, the following was used: automated exposure control, adjustment of mA and/or kV according to patient size. COMPARISON: [facility], CT, HEAD WITHOUT CONTRAST, 02/15/2017, 3:20. FINDINGS: Image quality: Excellent. CSF spaces: Basal cisterns are patent. No extra-axial fluid collections. The ventricles are symmetric in size and shape. Brain: No intracranial bleeds or masses. There is mild cerebral volume loss for age, with resultant ventricular and sulcal prominence. There are [id number] periventricular and deep white matter chronic small vessel ischemic changes. There is intracranial internal carotid artery atherosclerosis. Skull and face: Calvarium and visualized facial bones appear intact, without suspicious lesions. Sinuses: Mastoids are clear. Right maxillary sinus mucosal thickening and mucous retention cyst. IMPRESSION: 1. No acute intracranial abnormalities. 2. Cerebral volume loss and chronic microvascular ischemic changes. 3. Right maxillary sinus disease. No significant discrepancy with the slot shift supervisor radiology preliminary report. Dictated by: Latesha Tovar M.D. on 09/06/2018 at 7:36 Approved by: Latesha Tovar M.D. on 09/06/2018 at 7:39
--- NOTE | 2018-09-06 01:53 | ED_ITS ---
HPI - Fall General Chief Complaint: Fall Stated Complaint: Fall Time Seen by Provider: 09/06/18 01:46 Source: patient and EMS Mode of arrival: EMS Limitations: no limitations History of Present Illness HPI Narrative: This is a 70-year-old had a ground level fall. It was unwitnessed but heard by the staff at the [facility]. She was blocking the dorsum they had to come through the window to get into the room. Patient when asked if she has any pain states everywhere. Patient can tell me her name is Deja Garcia, she tells me she is 77. She does not give much information otherwise. She is currently denying any chest pain or shortness of breath. She states she does need to throw up. When asked if her thumb has any injury she states that was a long time ago. MD complaint: fall Related Data Home Medications Medication Instructions Recorded Confirmed biotin 1 mg PO Q DAY #0 02/11/17 08/12/18 peg 400-propylene glycol [Systane 1 dose OP DIRECTED #0 02/15/17 08/12/18 (propylene glycol)] acetaminophen 650 mg PO Q8HP PRN #0 12/16/17 08/12/18 blood sugar diagnostic 07/15/18 08/12/18 Previous Rx's Medication Instructions Recorded ferrous sulfate [Iron (ferrous 325 mg PO QDAY #30 tab 12/14/16 sulfate)] lisinopril [Prinivil] 20 mg PO BID #180 tab 04/17/17 pravastatin 40 mg PO HS #90 tab 04/17/17 citalopram [Celexa] 20 mg PO QDAY #90 tab 07/17/17 ropinirole 0.25 mg tablet 0.25 mg PO QID #120 tab 05/19/18 levothyroxine 50 mcg tablet 50 mcg PO DAILY #90 tab 06/20/18 amlodipine 5 mg tablet 5 mg PO QDAY #30 tab 07/21/18 cholecalciferol (vitamin D3) 1,000 1,000 unit PO QDAY #90 tab 08/11/18 unit tablet loperamide 1 mg/5 mL oral liquid 1 mg PO BID PRN #118 ml 08/11/18 buspirone 15 mg tablet 7.5 mg PO BID #30 tab 08/19/18 folic acid 400 mcg tablet 0.4 mg PO QDAY #30 tab 08/19/18 omeprazole 20 mg capsule,delayed 20 mg PO QDAY #30 cap 08/19/18 release Allergies Allergy/AdvReac Type Severity Reaction Status Date / Time glimepiride [GLIMEPIRIDE] Allergy Unknown UNKNOWN Verified 08/12/18 18:28 Sulfa (Sulfonamide AdvReac Severe hives Verified 08/12/18 18:28 Antibiotics) [SULFA (SULFONAMIDE ANTIBIOTICS)] metformin [METFORMIN] AdvReac Unknown DIARRHEA Verified 08/12/18 18:28 Review of Systems Review of Systems All systems reviewed & are unremarkable except as noted in HPI and below Constitutional Reports other (hurts all over) ENT Ears, Nose, Mouth, and Throat: Denies neck pain Cardiovascular Denies chest pain and Denies dyspnea Respiratory Denies dyspnea Gastrointestinal Gastrointestinal: Denies nausea and Denies vomiting Musculoskeletal Denies back pain and Denies neck pain Exam Narrative Exam Narrative: GEN: Patient appears in in no acute distress. HEAD: No evidence of trauma, no raccoon/Grullon sign. NECK: Nontender, painless range of motion, trachea midline EYES: PERRLA, EOMI ENT: External inspection normal, trachea is midline, TM's are normal no hemotypanum, Nares are clear, no septal hematoma, no dental or oral injury, airway is normal and with normal occlusion, No bony tenderness RESP: Chest is nontender and has symmetric movement, no ecchymosis, breath sounds are normal no crackles, wheezes or rales CVS: Heart sounds are normal, no murmur noted, No JVD. ABG/GI: Nontender, soft, normal bowel sounds, no distention, no organomegaly, pelvic rock is negative. NEURO: Oriented AOx3, neuro is grossly intact, sensation and motor is normal all 4 extremities moving, cranial nerves II through XII are intact, GCS is[ default value] PSYCH: Normal mood and affect SKIN: Abrasion over left knee, superficial, warm and dry, no crepitus and without decubitus BACK: No CVA tenderness, no vertebral tenderness, no step-off's, no crepitus EXT: Atraumatic, hips are nontender, no pedal edema, normal color and temperature, normal range of motion of extremities with normal tendon exam, patient lifts all four extremities without issue, 2+ pulses in all four extremities. Patient right thumb has deformity but no pain with movement, no crepitus, and per patient is old problem Initial Vital Signs Initial Vital Signs: Vital Signs Pulse Rate 54 L 09/06/18 01:55 Respiratory Rate 18 09/06/18 01:55 Blood Pressure 188/72 H 09/06/18 01:55 Pulse Oximetry 99 09/06/18 01:55 [facility] Medical History History of Whitt's esophagus (Chronic) History of IBS (Chronic) History of anxiety (Chronic) History of colon polyps (Chronic) History of depression (Chronic) History of diabetes mellitus (Chronic) History of diverticulitis (Chronic) History of gastroesophageal reflux (GERD) (Chronic) History of hemorrhoids (Chronic) History of hyperlipidemia (Chronic) History of hypertension (Chronic) History of hypothyroidism (Chronic) History of incontinence of feces (Chronic) History of osteoporosis (Chronic) History of peripheral neuropathy (Chronic) History of restless legs syndrome (Chronic) History of urinary incontinence (Chronic) Scoliosis (Chronic) Chronic venous stasis (Resolved) History of chickenpox (Resolved) History of measles (Resolved) Surgical History History of vein stripping (Resolved) History of bowel resection History of thyroidectomy Status post appendectomy Status post arthroscopy Status post bunionectomy Status post endoscopy Status post hammer toe correction Status post rotator cuff repair Social History marital status: household members: spouse Smoking Status: Former smoker alcohol intake: former substance use type: does not use Course Orders Ordered: ED Orders 09/06/18 01:40 Complete Blood Count AUTO DIFF Stat Comprehensive Metabolic Panel Stat Partial Thromboplastin Time Stat Prothrombin Time INR Stat Troponin I Stat 09/06/18 01:49 CT head/brain wo con Stat XR chest 1V Stat EKG-12 Lead Stat Vital Signs - 8 hr 09/06/18 01:55 09/06/18 03:30 09/06/18 04:20 Pulse Rate 54 L 79 62 Respiratory Rate 18 18 14 Blood Pressure 188/72 H 144/74 H Blood Pressure [Left Arm] 144/74 H Pulse Oximetry 99 100 100 MDM - Fall Lab Data Attestation: I reviewed the patient's lab results. Result diagrams: 09/06/18 01:40 09/06/18 01:40 Lab Results 09/06/18 09/06/18 09/06/18 Range/Units 01:40 01:40 01:40 WBC 4.5 (4.5-11.0) X10^3/uL RBC 4.01 (4.0-5.2) X10^6/uL Hgb 13.2 (12.0-16.0) g/dL Hct 38.0 (36-46) % MCV 94.7 (80-100) fL MCH 33.0 (26-34) PG MCHC 34.8 (30-36) % RDW 14.0 (11.6-14.8) % Plt Count 167 (150-400) X10^3/uL Neut % (Auto) 59.4 (50-75) % Lymph % (Auto) 30.0 (25-40) % [place] % (Auto) 9.1 (3-14) % Eos % (Auto) 1.1 L (2-4) % Baso % (Auto) 0.4 (0-2) % Neut # (Auto) 2700 L (4062-1226) /uL PT 11.1 (10.1-12.7) SECONDS INR 1.0 (0.9-1.3) APTT 28 (26.4-36.2) SECONDS Sodium 140 (137-145) mmol/L Potassium 3.8 (3.4-5.1) mmol/L Chloride 100 (98-107) mmol/L Carbon Dioxide 31 (22-32) mmol/L BUN 32 H (7-17) mg/dL Creatinine 0.60 (0.52-1.04) mg/dL Estimated GFR > 60.0 (>60) mL/min BUN/Creatinine Ratio 53.3 H (6-22) Glucose 118 H (80-110) mg/dL Calcium 9.1 (8.4-10.2) mg/dL Total Bilirubin 0.7 (0.2-1.3) mg/dL AST 32 (14-36) IU/L ALT 36 (9-52) IU/L Alkaline Phosphatase 101 (38-126) U/L Troponin I (0.01-0.034) ng/mL Total Protein 7.4 (6.3-8.2) g/dL Albumin 4.6 (3.5-5.0) g/dL Globulin 2.8 (1.7-4.1) g/dL Albumin/Globulin Ratio 1.6 (1.0-2.8) //18 Range/Units 01:40 WBC (4.5-11.0) X10^3/uL RBC (4.0-5.2) X10^6/uL Hgb (12.0-16.0) g/dL Hct (36-46) % MCV (80-100) fL MCH (26-34) PG MCHC (30-36) % RDW (11.6-14.8) % Plt Count (150-400) X10^3/uL Neut % (Auto) (50-75) % Lymph % (Auto) (25-40) % [place] % (Auto) (3-14) % Eos % (Auto) (2-4) % Baso % (Auto) (0-2) % Neut # (Auto) (7665-1667) /uL PT (10.1-12.7) SECONDS INR (0.9-1.3) APTT (26.4-36.2) SECONDS Sodium (137-145) mmol/L Potassium (3.4-5.1) mmol/L Chloride (98-107) mmol/L Carbon Dioxide (22-32) mmol/L BUN (7-17) mg/dL Creatinine (0.52-1.04) mg/dL Estimated GFR (>60) mL/min BUN/Creatinine Ratio (6-22) Glucose (80-110) mg/dL Calcium (8.4-10.2) mg/dL Total Bilirubin (0.2-1.3) mg/dL AST (14-36) IU/L ALT (9-52) IU/L Alkaline Phosphatase (38-126) U/L Troponin I < 0.012 (0.01-0.034) ng/mL Total Protein (6.3-8.2) g/dL Albumin (3.5-5.0) g/dL Globulin (1.7-4.1) g/dL Albumin/Globulin Ratio (1.0-2.8) Imaging Data CT scan - head: Radiologist's impression: No acute intracranial process is identified. Mild to moderate age-related atrophic change. Mild moderate age-related ischemic demyelination of the white matter. Chest x-ray: Attestation: I personally reviewed and interpreted this imaging study as follows: My impression: Nap, no fx noted. Prior CXR notes callus from possible rib fx vs. nodule over right rib. No nodule noted today. No infiltrate, no cardiomegaly. ECG Data Attestation: I personally reviewed and interpreted this ECG as follows: Prior ECG tracings: available for review Interpretation: Sinus bradycardia, rate of 56, pr of 155, qrs of 104, qtc of 435. No ST elevation or depression, LAFB. Patient EKG appears different than prior. MDM Narrative Medical decision making narrative: Patient has no specific complaints of injury. Unknown if she hit her head, head CT is negative, lab work shows no major changes. Discussed all findings with son who is at bedside. He feels comfortable returning with her back to her a memory care. We discussed signs symptoms to watch for as well as possible additional testing is needed. Discharge Plan Departure Patient Disposition: Home Clinical Impression: Fall from ground level Discharge Date/Time: 09/06/18 04:20 Interventions: ED Discharge Assessment Last Done: 09/06/18 04:20 Instructions: How to Prevent Falls Activity Restrictions/Additional Instructions: Follow up with primary care in the next 2-3 days for recheck. Patient may continue home medications. Return for new changes to mental status, difficulty breathing, chest pain, persistent vomiting, new numbness, weakness or other new or concerning symptoms. Prescriptions: No Action ferrous sulfate [Iron (ferrous sulfate)] 325 MG tablet 325 mg PO QDAY Qty: 30 RF: 1 biotin 1 MG capsule 1 mg PO Q DAY Qty: 0 RF: 0 peg 400-propylene glycol [Systane (propylene glycol)] 15 ML drops 1 dose OP DIRECTED Qty: 0 RF: 0 pravastatin 40 MG tablet 40 mg PO HS Qty: 90 RF: 3 lisinopril [Prinivil] 20 MG tablet 20 mg PO BID Qty: 180 RF: 3 citalopram [Celexa] 20 MG tablet 20 mg PO QDAY Qty: 90 RF: 2 acetaminophen 650 MG tablet extended release 650 mg PO Q8HP PRN (Reason: Pain (Scale Score 1-3)) Qty: 0 RF: 0 ropinirole [Requip] 0.25 mg tablet 0.25 mg PO QID Qty: 120 RF: 5 levothyroxine 50 mcg tablet 50 mcg PO DAILY Qty: 90 RF: 1 amlodipine [Norvasc] 5 mg tablet 5 mg PO QDAY Qty: 30 RF: 1 cholecalciferol (vitamin D3) [Vitamin D3] 1,000 unit tablet 1,000 unit PO QDAY Qty: 90 RF: 3 loperamide 1 mg/5 mL liquid 1 mg PO BID PRN (Reason: loose stool) Qty: 118 RF: 1 buspirone 15 mg tablet 7.5 mg PO BID Qty: 30 RF: 5 omeprazole 20 mg capsule,delayed release(DR/EC) 20 mg PO QDAY Qty: 30 RF: 5 folic acid 400 mcg tablet 0.4 mg PO QDAY Qty: 30 RF: 5 blood sugar diagnostic strip RF: 0 Referrals: Dorina Santos DO [Primary Care Provider] -
[2018-09-06 01:55] VITALS: BP 188/72; PULSE 54; RESP 18; O2SAT 99
[2018-09-06 01:56] LABS: Add Manual Diff / Slide Review NO; Basophils Percent Auto 0.4 % (0-2); Eosinophils Percent Auto 1.1 % (2-4); Hemoglobin 13.2 g/dL (12.0-16.0); Mean Corpuscular HGB Conc 34.8 % (30-36); Mean Corpuscular Volume 94.7 fL (80-100); Monocytes Percent Auto 9.1 % (3-14); Neutrophils Absolute Auto 2700 /uL (3000-5900); Neutrophils Percent Auto 59.4 % (50-75); Platelet Count 167 X10^3/uL (150-400); Prothrombin Time 11.1 SECONDS (10.1-12.7); Red Blood Cell Count 4.01 X10^6/uL (4.0-5.2); White Blood Cell Count 4.5 X10^3/uL (4.5-11.0)
[2018-09-06 01:59] LABS: PTT Partial Thromboplastin Tim 28 SECONDS (26.4-36.2)
[2018-09-06 02:00] LABS: Alanine Aminotransferase 36 IU/L (9-52); Albumin 4.6 g/dL (3.5-5.0); Albumin Globulin Ratio 1.6 (1.0-2.8); Alkaline Phosphatase 101 U/L (38-126); Aspartate Aminotransferase 32 IU/L (14-36); BUN Creatinine Ratio 53.3 (6-22); Bilirubin Total 0.7 mg/dL (0.2-1.3); Blood Urea Nitrogen 32 mg/dL (7-17); Calcium 9.1 mg/dL (8.4-10.2); Carbon Dioxide 31 mmol/L (22-32); Chloride 100 mmol/L (98-107); Estimated Glomerular Filt Rate > 60.0 mL/min (>60); Globulin 2.8 g/dL (1.7-4.1); Glucose 118 mg/dL (80-110); HEMOLYSIS < 15 (0-50); Potassium 3.8 mmol/L (3.4-5.1); Sodium 140 mmol/L (137-145); Total Protein 7.4 g/dL (6.3-8.2)
[2018-09-06 02:31] LABS: Troponin I < 0.012 ng/mL (0.01-0.034)
[2018-09-06 03:30] VITALS: BP 144/74; PULSE 79; RESP 18; O2SAT 100
[2018-09-06 04:20] VITALS: BP 144/74; PULSE 62; RESP 14; O2SAT 100
--- NOTE | 2018-09-09 14:21 | PC.NURSE ---
call back, disconnected number.
== END 2018-09-06 04:20 | disposition home or self-care (01) ==
PROVIDERS: Emergency Provider Emergency Medicine; Family Provider Family Medicine; PCP Family Medicine
DX: R52 Pain, unspecified (principal); W18.30XA Fall on same level, unspecified, initial encounter
CPT/HCPCS: 70450; 71045; 80053; 84484; 85025; 85610; 85730; 93005; 99283; 99285

== ENCOUNTER → 2018-09-16 15:10 | Outpatient (CLI) | payer MEDICARE, SELFPAY ==
[2018-09-16 18:24] LABS: Bacteria Urine None Seen
[2018-09-16 18:35] LABS: Appearance Urine UA CLOUDY; Bilirubin Urine UA NEGATIVE (NEGATIVE); Color Urine UA YELLOW; Glucose Urine UA TRACE g/dL (Normal); Ketones Urine UA NEGATIVE (NEGATIVE); Leukocyte Esterase Urine UA TRACE (NEGATIVE); Nitrite Urine UA NEGATIVE (Negative); Occult Blood Urine UA NEGATIVE (Negative); Protein Urine UA 1+ (Negative); Specific Gravity Urine UA >=1.030 (1.000-1.035); Urobilinogen Urine UA 0.2 E.U./dL (0.2)
[2018-09-16 19:00] LABS: RBC Urine 1-5/HPF (0-5/HPF); WBC Urine 1-5/HPF (0-5/HPF)
[2018-09-16 19:01] LABS: Amorphous Sediment Urine 2+; Culture Indicated Urine Specimen Cultured; Squamous Epithelial Cell Urine 1-5 /HPF
== END ==
PROVIDERS: Family Provider Family Medicine; PCP Family Medicine; Visit Provider Family Medicine
DX: R30.0 Dysuria (principal)
CPT/HCPCS: 81001; 87077; 87086

== ENCOUNTER → 2018-10-06 15:35 | Outpatient (CLI) | payer MEDICARE, SELFPAY ==
[2018-10-06 16:10] LABS: Add Manual Diff / Slide Review NO; Basophils Percent Auto 0.5 % (0-2); Eosinophils Percent Auto 0.9 % (2-4); Hemoglobin 12.9 g/dL (12.0-16.0); Lymphocytes Percent Auto 22.6 % (25-40); Mean Corpuscular Hemoglobin 32.4 PG (26-34); Mean Corpuscular Volume 95.4 fL (80-100); Neutrophils Absolute Auto 2400 /uL (1500-7000); Platelet Count 203 X10^3/uL (150-400); Red Blood Cell Count 3.98 X10^6/uL (4.0-5.2); Red Cell Distribution Width 13.7 % (11.6-14.8); White Blood Cell Count 3.5 X10^3/uL (4.5-11.0)
[2018-10-06 16:44] LABS: Alanine Aminotransferase 39 IU/L (9-52); Albumin 4.2 g/dL (3.5-5.0); Albumin Globulin Ratio 1.7 (1.0-2.8); Alkaline Phosphatase 93 U/L (38-126); Aspartate Aminotransferase 29 IU/L (14-36); BUN Creatinine Ratio 37.5 (6-22); Bilirubin Total 0.6 mg/dL (0.2-1.3); Blood Urea Nitrogen 30 mg/dL (7-17); Calcium 9.7 mg/dL (8.4-10.2); Carbon Dioxide 31 mmol/L (22-32); Chloride 101 mmol/L (98-107); Estimated Glomerular Filt Rate > 60.0 mL/min (>60); Globulin 2.5 g/dL (1.7-4.1); Glucose 123 mg/dL (80-110); HEMOLYSIS < 15 (0-50); Potassium 4.3 mmol/L (3.4-5.1); Sodium 144 mmol/L (137-145); Total Protein 6.7 g/dL (6.3-8.2)
[2018-10-06 17:12] LABS: TSH w/ Reflex to FT4 4.27 uIU/mL (0.47-4.68)
== END ==
PROVIDERS: PCP Family Medicine; Visit Provider Family Medicine
DX: R62.7 Adult failure to thrive (principal); E03.9 Hypothyroidism, unspecified
CPT/HCPCS: 36415; 80053; 84443; 85025

== ENCOUNTER → 2019-03-18 08:34 | Outpatient (ROUT) | payer MEDICARE, SELFPAY ==
[2019-03-18 10:00] LABS: Add Manual Diff / Slide Review NO; Basophils Absolute Auto 0 /uL (0-100); Basophils Percent Auto 0.3 % (0-2); Eosinophils Absolute Auto 100 /uL (0-450); Eosinophils Percent Auto 0.9 % (2-4); Hematocrit 30.4 % (36-46); Hemoglobin 10.4 g/dL (12.0-16.0); Lymphocytes Absolute Auto 700 /uL (1100-4500); Lymphocytes Percent Auto 11.1 % (25-40); Mean Corpuscular HGB Conc 34.2 % (30-36); Mean Corpuscular Hemoglobin 33.4 PG (26-34); Mean Corpuscular Volume 97.7 fL (80-100); Monocytes Absolute Auto 300 /uL (0-900); Neutrophils Absolute Auto 5200 /uL (1500-7000); Neutrophils Percent Auto 82.7 % (50-75); Platelet Count 241 X10^3/uL (150-400); Red Blood Cell Count 3.11 X10^6/uL (4.0-5.2); Red Cell Distribution Width 14.8 % (11.6-14.8); White Blood Cell Count 6.3 X10^3/uL (4.5-11.0)
[2019-03-18 10:12] LABS: Blood Urea Nitrogen 27 mg/dL (7-17); Calcium 8.6 mg/dL (8.4-10.2); Carbon Dioxide 30 mmol/L (22-32); Chloride 99 mmol/L (98-107); Estimated Glomerular Filt Rate 53.6 mL/min (>60); Glucose 218 mg/dL (80-110); HEMOLYSIS < 15 (0-50); Sodium 139 mmol/L (137-145)
== END ==
PROVIDERS: Family Provider Family Medicine; PCP Family Medicine; Visit Provider Internal Medicine
DX: M79.606 Pain in leg, unspecified (principal)
CPT/HCPCS: 36415; 80048; 85025

== ENCOUNTER 2019-04-16 12:25 | Emergency (ER) | payer MEDICARE, SELFPAY ==
[2019-04-16 12:32] VITALS: BP 132/70; PULSE 70; RESP 15; TEMP 37.2; O2SAT 96
--- NOTE | 2019-04-16 12:57 | ED.FALL ---
HPI - Fall <Jen Rodriguez PA-C - Last Filed: 04/16/19 20:31> General Chief Complaint: Fall Stated Complaint: Fall Time Seen by Provider: 04/16/19 12:29 Source: patient and other (pt's GRAIN SCOOPER) Mode of arrival: EMS Limitations: altered mental status (dementia) History of Present Illness HPI Narrative: This 78-year-old female who suffers from Lewy body type dementia is sent in with EMS due to a fall. She was found in her closet. Unknown whether any injury. She states she has fallen multiple times this week because she tripped. She states that she remembers going into the closet to get a specific pair of pants and could not find them. She currently denies any specific injury, notes that her lower legs always hurt and has had cellulitis. Nurse practitioner states that fall was unwitnessed, but apparently she may have some said at some point that she hit or hurt her head. No apparent loss of consciousness known, she has seemed at baseline mentation and mobility. Nurse practitioner notes that she had seen her a couple of days ago for some rectal bleeding and had a firm belly, thought perhaps due to constipation and was going to talk to patient's son about doing further testing. Patient states that she has not had any abdominal pain, nausea or vomiting today and believes that she ate breakfast. She is a tangential historian. Nurse practitioner reports that patient's baseline is ?pain everywhere?. She does have chronic bilateral lower extremity swelling and redness, worse on the right. They occasionally treat for cellulitis but do not tend to see significant changes. She saw her 2 days ago and has not noted any new change. Related Data Home Medications Medication Instructions Recorded Confirmed acetaminophen 650 mg PO TID PRN #0 12/16/17 04/16/19 blood sugar diagnostic 07/15/18 04/16/19 Soothe Night Time Lubricant 1 applic OPHTHALMIC (EYE) BEDTIME 04/16/19 04/16/19 ceramides 1,3,6-11 [CeraVe] 1 applic TOPICAL BID 04/16/19 04/16/19 citalopram [Celexa] 20 mg PO QPM 04/16/19 04/16/19 docusate sodium 100 mg PO DAILY 04/16/19 04/16/19 furosemide 80 mg PO DAILY 04/16/19 04/16/19 gabapentin 300 mg PO DAILY 04/16/19 04/16/19 lisinopril 10 mg PO DAILY 04/16/19 04/16/19 lorazepam 0.5 mg PO Q2H PRN 04/16/19 04/16/19 magnesium hydroxide [Milk of 60 ml PO BEDTIME 04/16/19 04/16/19 Magnesia] methadone 5 mg PO Q12H 04/16/19 04/16/19 morphine concentrate 0.25 ml SUBLINGUAL Q6H PRN 04/16/19 04/16/19 omeprazole 20 mg PO DAILY 04/16/19 04/16/19 ondansetron 4 mg PO Q4H PRN 04/16/19 04/16/19 potassium chloride 20 meq PO BID 04/16/19 04/16/19 propylene glycol [Systane Balance] 1 drp OPHTHALMIC (EYE) DIRECTED 04/16/19 04/16/19 quetiapine 25 mg PO BEDTIME 04/16/19 04/16/19 quetiapine 50 mg PO BID 04/16/19 04/16/19 ropinirole [Requip] 0.25 mg PO BEDTIME 04/16/19 04/16/19 sennosides [senna] 8.6 mg PO BID 04/16/19 04/16/19 trazodone 25 mg PO QAM 04/16/19 04/16/19 trazodone 50 mg PO BEDTIME 04/16/19 04/16/19 Previous Rx's Medication Instructions Recorded levothyroxine 50 mcg tablet 50 mcg PO DAILY #90 tab 06/20/18 loperamide 1 mg/5 mL oral liquid 1 mg PO BID PRN #118 ml 09/15/18 amoxicillin-pot clavulanate 1 tab PO Q12H #20 tab 04/16/19 [Augmentin] Allergies Allergy/AdvReac Type Severity Reaction Status Date / Time glimepiride [GLIMEPIRIDE] Allergy Unknown UNKNOWN Verified 10/06/18 15:02 Sulfa (Sulfonamide AdvReac Severe hives Verified 10/06/18 15:02 Antibiotics) [SULFA (SULFONAMIDE ANTIBIOTICS)] metformin [METFORMIN] AdvReac Unknown DIARRHEA Verified 10/06/18 15:02 Review of Systems <Jen Rodriguez PA-C - Last Filed: 04/16/19 20:31> Review of Systems ROS Unobtainable: All systems reviewed & are unremarkable except as noted in HPI and below Exam <Jen Rodriguez PA-C - Last Filed: 04/16/19 20:31> Narrative Exam Narrative: GENERAL APPEARANCE: Patient sitting comfortably, in no distress. HEENT: PERRL, EOMI, normal TMs and oropharynx. No scalp lesions or hematoma noted. There is a faint patch of linear ecchymoses right infraorbital area. No facial tenderness or palpable bony deformity NECK: Supple, no masses LUNGS: Clear to auscultation bilaterally. HEART: Rate and rhythm regular without murmur, normal S1 and S2, no S3 or S4. ABDOMEN: Moderate firmness over the inferior quadrants, very minimal tenderness without guarding or rebound, ND, + BS x 4 quadrants NEUROLOGIC: Alert, pleasantly confused, speech is fluent MUSCULOSKELETAL: No point tenderness over the cervical, thoracic, or lumbar spine. Full Csp AROM without tenderness. Full range of motion of the upper extremities. No tenderness over the hips. Tender throughout the lower legs, ankles and feet bilaterally, no joint effusion EXTREMITIES: Moderate pitting edema bilateral inferior extremities which are erythematous, not warm to touch. Somewhat more on the right side. Initial Vital Signs Initial Vital Signs: Vital Signs Temperature 99.0 F 04/16/19 12:32 Pulse Rate 70 04/16/19 12:32 Respiratory Rate 15 04/16/19 12:32 Blood Pressure 132/70 04/16/19 12:32 Pulse Oximetry 96 04/16/19 12:32 <Eleonora Dobbins DO - Last Filed: 04/17/19 08:17> Initial Vital Signs Initial Vital Signs: Vital Signs Temperature 99.0 F 04/16/19 12:32 Pulse Rate 70 04/16/19 12:32 Respiratory Rate 15 04/16/19 12:32 Blood Pressure 132/70 04/16/19 12:32 Pulse Oximetry 96 04/16/19 12:32 PFSH <Jen Rodriguez PA-C - Last Filed: 04/16/19 20:31> Social History marital status: household members: spouse Smoking Status: Former smoker alcohol intake: former substance use type: does not use Course <Jen Rodriguez PA-C - Last Filed: 04/16/19 20:31> Additional Information: I have spoken with patient's PCP GRAIN SCOOPER Love and reviewed findings. She is more anemic than last month, does have significant constipation and also appears to have pneumonia on chest x-ray though no complaints or reports of respiratory symptoms. Patient does not appear to be in any distress at all. Elected to treat the pneumonia, and she is going to discuss how aggressive to be with further workup with patient's son and POA. She will follow up with patient tomorrow. Findings were reviewed with patient and she is agreeable Orders Ordered: ED Orders 04/16/19 13:10 XR acute abdomen series Stat 04/16/19 13:22 CT head/brain wo con Stat 04/16/19 13:59 Complete Blood Count AUTO DIFF Stat Comprehensive Metabolic Panel Stat Magnesium Stat Vital Signs - 8 hr 04/16/19 12:32 04/16/19 13:15 04/16/19 14:15 Temperature 99.0 F Pulse Rate 70 66 68 Respiratory Rate 15 14 Blood Pressure 132/70 Blood Pressure [Left Arm] 134/66 144/72 H Pulse Oximetry 96 96 96 04/16/19 15:17 Temperature Pulse Rate 77 Respiratory Rate Blood Pressure Blood Pressure [Left Arm] 139/71 Pulse Oximetry 95 <Eleonora Dobbins DO - Last Filed: 04/17/19 08:17> Orders Ordered: ED Orders 04/16/19 13:10 XR acute abdomen series Stat 04/16/19 13:22 CT head/brain wo con Stat 04/16/19 13:59 Complete Blood Count AUTO DIFF Stat Comprehensive Metabolic Panel Stat Magnesium Stat Vital Signs - 8 hr 04/16/19 12:32 04/16/19 13:15 04/16/19 14:15 Temperature 99.0 F Pulse Rate 70 66 68 Respiratory Rate 15 14 Blood Pressure 132/70 Blood Pressure [Left Arm] 134/66 144/72 H Pulse Oximetry 96 96 96 04/16/19 15:17 Temperature Pulse Rate 77 Respiratory Rate Blood Pressure Blood Pressure [Left Arm] 139/71 Pulse Oximetry 95 MDM - Fall <Jen Rodriguez PA-C - Last Filed: 04/16/19 20:31> Lab Data Attestation: I reviewed the patient's lab results. Result diagrams: 04/16/19 13:59 04/16/19 13:59 Lab Results 04/16/19 04/16/19 Range/Units 13:59 13:59 WBC 9.5 (4.5-11.0) X10^3/uL RBC 2.78 L (4.0-5.2) X10^6/uL Hgb 8.9 L (12.0-16.0) g/dL Hct 26.2 L (36-46) % MCV 94.4 (80-100) fL MCH 32.1 (26-34) PG MCHC 34.1 (30-36) % RDW 14.4 (11.6-14.8) % Plt Count 210 (150-400) X10^3/uL Neut % (Auto) 84.6 H (50-75) % Lymph % (Auto) 7.1 L (25-40) % [place] % (Auto) 7.3 (3-14) % Eos % (Auto) 0.8 L (2-4) % Baso % (Auto) 0.2 (0-2) % Neut # (Auto) 8000 H (5022-0158) /uL Lymph # (Auto) 700 L (1260-5912) /uL [place] # (Auto) 700 (0-900) /uL Eos # (Auto) 100 (0-450) /uL Baso # (Auto) 0 (0-100) /uL Sodium 139 (137-145) mmol/L Potassium 4.6 (3.4-5.1) mmol/L Chloride 97 L (98-107) mmol/L Carbon Dioxide 33 H (22-32) mmol/L BUN 46 H (7-17) mg/dL Creatinine 1.40 H (0.52-1.04) mg/dL Estimated GFR 36.4 L (>60) mL/min BUN/Creatinine Ratio 32.9 H (6-22) Glucose 88 (80-110) mg/dL Calcium 8.9 (8.4-10.2) mg/dL Magnesium 2.1 (1.6-2.3) mg/dL Total Bilirubin 0.5 (0.2-1.3) mg/dL AST 44 H (14-36) IU/L ALT 31 (9-52) IU/L Alkaline Phosphatase 105 (38-126) U/L Total Protein 7.3 (6.3-8.2) g/dL Albumin 3.9 (3.5-5.0) g/dL Globulin 3.4 (1.7-4.1) g/dL Albumin/Globulin Ratio 1.1 (1.0-2.8) Imaging Data Chest x-ray: Radiologist's impression: [address] [address] XRay Report Signed Patient: Deja No JANENE#: [id number] : 1940Acct:[id number] Age/Sex: 78 / FDate of Service: 04/16/19 Loc: ED Accession Number: [id number] Procedure: XR acute abdomen series Ordering Provider: Jen Rodriguez P.A-C PROCEDURE: XR ACUTE ABDOMEN SERIES INDICATIONS: abd fullness TECHNIQUE: One view chest and two views of the abdomen were acquired. COMPARISON: [facility], CR, XR CHEST 1V, 09/06/2018, 1:52. FINDINGS: Surgical changes and devices: None. Chest: Patchy areas of consolidation are identified throughout the right lung. Heart size is enlarged. There is aortic atherosclerosis. No pleural effusions. No pneumoperitoneum. Abdomen: No air-filled distended small bowel loops are identified demonstrating air-fluid levels. Large amount of stool seen throughout the colon. No suspicious calcifications. Visualized solid organ contours appear normal. Bones: No suspicious bony lesions. There is severe dextroscoliosis of the lumbar spine. IMPRESSION: 1. Patchy airspace disease within the right lung is suspicious for pneumonia. Followup imaging in 3-4 weeks is recommended to document complete resolution and exclude an underlying lesion. 2. Probable colonic constipation. No bowel obstruction. Dictated by: Nico Hope M.D. on 04/16/2019 at 13:09 Approved by: Nico Hope M.D. on 04/16/2019 at 13:11 CT scan - head: Radiologist's impression: [address] [address] [address] Scan Report Signed Patient: Deja No JANENE#: [id number] : 1940Acct:[id number] Age/Sex: 78 / FDate of Service: 04/16/19 Loc: ED Accession Number: [id number] Procedure: CT head/brain wo con Ordering Provider: Jen Rodriguez P.A-C PROCEDURE: CT HEAD/BRAIN WO CON INDICATIONS: fall, chronic confusion TECHNIQUE: Noncontrast 4.5 mm thick angled axial sections acquired from the foramen magnum to the vertex, with coronal and sagittal reformats. For radiation dose reduction, the following was used: automated exposure control, adjustment of mA and/or kV according to patient size. COMPARISON: [facility], CT, HEAD WITHOUT CONTRAST, 02/15/2017, 3:20. [facility], MR, BRAIN WITHOUT CONTRAST, 06/18/2007, 10:28. [facility], CT, CT HEAD/BRAIN WO CON, 09/06/2018, 1:48. FINDINGS: Image quality: Excellent. CSF spaces: Basal cisterns are patent. No extra-axial fluid collections. The ventricles are symmetric in size and shape. Brain: No intracranial bleeds or masses. There is cerebral volume loss for age, with resultant ventricular and sulcal prominence. There are possible old lacunar infarcts involving the right caudate, bilateral basal ganglia and left internal capsule. There are periventricular and deep white matter chronic small vessel ischemic changes. There is intracranial internal carotid artery atherosclerosis. Skull and face: Calvarium and visualized facial bones appear intact, without suspicious lesions. Sinuses: Right maxillary sinus mucosal thickening. The mastoids are clear. IMPRESSION: 1. No acute intracranial abnormalities. No intracranial bleed. 2. Cerebral volume loss and chronic microvascular ischemic changes. 3. Possivle old lacunar infarcts. 4. Right maxillary sinus mucosal thickening. Dictated by: Latesha Tovar M.D. on 04/16/2019 at 13:50 Approved by: Latesha Tovar M.D. on 04/16/2019 at 13:55 <Eleonora Dobbins DO - Last Filed: 04/17/19 08:17> Lab Data Lab Results 04/16/19 04/16/19 Range/Units 13:59 13:59 WBC 9.5 (4.5-11.0) X10^3/uL RBC 2.78 L (4.0-5.2) X10^6/uL Hgb 8.9 L (12.0-16.0) g/dL Hct 26.2 L (36-46) % MCV 94.4 (80-100) fL MCH 32.1 (26-34) PG MCHC 34.1 (30-36) % RDW 14.4 (11.6-14.8) % Plt Count 210 (150-400) X10^3/uL Neut % (Auto) 84.6 H (50-75) % Lymph % (Auto) 7.1 L (25-40) % [place] % (Auto) 7.3 (3-14) % Eos % (Auto) 0.8 L (2-4) % Baso % (Auto) 0.2 (0-2) % Neut # (Auto) 8000 H (9645-0488) /uL Lymph # (Auto) 700 L (9483-1362) /uL [place] # (Auto) 700 (0-900) /uL Eos # (Auto) 100 (0-450) /uL Baso # (Auto) 0 (0-100) /uL Sodium 139 (137-145) mmol/L Potassium 4.6 (3.4-5.1) mmol/L Chloride 97 L (98-107) mmol/L Carbon Dioxide 33 H (22-32) mmol/L BUN 46 H (7-17) mg/dL Creatinine 1.40 H (0.52-1.04) mg/dL Estimated GFR 36.4 L (>60) mL/min BUN/Creatinine Ratio 32.9 H (6-22) Glucose 88 (80-110) mg/dL Calcium 8.9 (8.4-10.2) mg/dL Magnesium 2.1 (1.6-2.3) mg/dL Total Bilirubin 0.5 (0.2-1.3) mg/dL AST 44 H (14-36) IU/L ALT 31 (9-52) IU/L Alkaline Phosphatase 105 (38-126) U/L Total Protein 7.3 (6.3-8.2) g/dL Albumin 3.9 (3.5-5.0) g/dL Globulin 3.4 (1.7-4.1) g/dL Albumin/Globulin Ratio 1.1 (1.0-2.8) Discharge Plan Departure Patient Disposition: Home Clinical Impression: Fall Qualifiers: Encounter type: initial encounter Qualified Code(s): W19.XXXA - Unspecified fall, initial encounter Pneumonia Qualifiers: Pneumonia type: due to unspecified organism Laterality: right Lung location: unspecified part of lung Qualified Code(s): J18.9 - Pneumonia, unspecified organism Constipation Qualifiers: Constipation type: unspecified constipation type Qualified Code(s): K59.00 - Constipation, unspecified Anemia Qualifiers: Anemia type: unspecified type Qualified Code(s): D64.9 - Anemia, unspecified Discharge Date/Time: 04/16/19 15:19 Interventions: ED Discharge Assessment Last Done: 04/16/19 15:18 Instructions: DI for Pneumonia -- Adult, How to Prevent Falls Activity Restrictions/Additional Instructions: There was no acute problem found on your head scan today. It did look like you have some pneumonia on your chest x-ray as well as constipation. I have prescribed an antibiotic for this, and nurse practitioner Hillary will follow up with you tomorrow to assess your progress Prescriptions: New amoxicillin-pot clavulanate [Augmentin] 875-125 mg tablet 1 tab PO Q12H Qty: 20 RF: 0 No Action acetaminophen 650 MG tablet extended release 650 mg PO TID PRN (Reason: pain) Qty: 0 RF: 0 levothyroxine 50 mcg tablet 50 mcg PO DAILY Qty: 90 RF: 1 loperamide 1 mg/5 mL liquid 1 mg PO BID PRN (Reason: loose stool) Qty: 118 RF: 1 blood sugar diagnostic strip RF: 0 sennosides [senna] 8.6 mg Tablet 8.6 mg PO BID RF: 0 trazodone 50 mg Tablet 50 mg PO BEDTIME RF: 0 trazodone 50 mg Tablet 25 mg PO QAM RF: 0 potassium chloride 20 mEq tablet,ER particles/crystals 20 meq PO BID RF: 0 lorazepam 0.5 mg Tablet 0.5 mg PO Q2H PRN (Reason: anxiety/dyspnea) RF: 0 magnesium hydroxide [Milk of Magnesia] 400 mg/5 mL Suspension 60 ml PO BEDTIME RF: 0 furosemide 80 mg Tablet 80 mg PO DAILY RF: 0 lisinopril 10 mg tablet 10 mg PO DAILY RF: 0 docusate sodium 100 mg Capsule 100 mg PO DAILY RF: 0 gabapentin 300 mg Capsule 300 mg PO DAILY RF: 0 methadone 5 mg tablet 5 mg PO Q12H RF: 0 ondansetron 4 mg Tablet,Disintegrating 4 mg PO Q4H PRN (Reason: Nausea And Vomiting) RF: 0 quetiapine 50 mg tablet 50 mg PO BID RF: 0 CeraVe Cream 1 applic topical BID RF: 0 Systane Balance 0.6 % Drops 1 drp ophthalmic (eye) DIRECTED RF: 0 morphine concentrate 20 mg/mL Syringe 0.25 ml SUBLINGUAL Q6H PRN (Reason: pain/dyspnea) RF: 0 Soothe Night Time Lubricant 1 applic ophthalmic (eye) BEDTIME RF: 0 quetiapine 25 mg tablet 25 mg PO BEDTIME RF: 0 citalopram [Celexa] 20 mg tablet 20 mg PO QPM RF: 0 ropinirole [Requip] 0.25 mg tablet 0.25 mg PO BEDTIME RF: 0 omeprazole 20 mg capsule,delayed release(DR/EC) 20 mg PO DAILY RF: 0 Referrals: Nessa Walker [Other] (fax [phone]) <Eleonora Dobbins DO - Last Filed: 04/17/19 08:17> Cosign ED Attending Cosignature Attestation: I was immediately available in the department for consultation. Documentation has been reviewed. I agree with assessment and plan.
--- NOTE | 2019-04-16 13:10 | DI.RAD.S_ITS ---
PROCEDURE: XR ACUTE ABDOMEN SERIES INDICATIONS: abd fullness TECHNIQUE: One view chest and two views of the abdomen were acquired. COMPARISON: [facility], CR, XR CHEST 1V, 09/06/2018, 1:52. FINDINGS: Surgical changes and devices: None. Chest: Patchy areas of consolidation are identified throughout the right lung. Heart size is enlarged. There is aortic atherosclerosis. No pleural effusions. No pneumoperitoneum. Abdomen: No air-filled distended small bowel loops are identified demonstrating air-fluid levels. Large amount of stool seen throughout the colon. No suspicious calcifications. Visualized solid organ contours appear normal. Bones: No suspicious bony lesions. There is severe dextroscoliosis of the lumbar spine. IMPRESSION: 1. Patchy airspace disease within the right lung is suspicious for pneumonia. Followup imaging in 3-4 weeks is recommended to document complete resolution and exclude an underlying lesion. 2. Probable colonic constipation. No bowel obstruction. Dictated by: Nico Hope M.D. on 04/16/2019 at 13:09 Approved by: Nico Hope M.D. on 04/16/2019 at 13:11
[2019-04-16 13:15] VITALS: BP 134/66; PULSE 66; RESP 14; O2SAT 96
--- NOTE | 2019-04-16 13:22 | DI.CT.S_ITS ---
PROCEDURE: CT HEAD/BRAIN WO CON INDICATIONS: fall, chronic confusion TECHNIQUE: Noncontrast 4.5 mm thick angled axial sections acquired from the foramen magnum to the vertex, with coronal and sagittal reformats. For radiation dose reduction, the following was used: automated exposure control, adjustment of mA and/or kV according to patient size. COMPARISON: [facility], CT, HEAD WITHOUT CONTRAST, 02/15/2017, 3:20. [facility], MR, BRAIN WITHOUT CONTRAST, 06/18/2007, 10:28. [facility], CT, CT HEAD/BRAIN WO CON, 09/06/2018, 1:48. FINDINGS: Image quality: Excellent. CSF spaces: Basal cisterns are patent. No extra-axial fluid collections. The ventricles are symmetric in size and shape. Brain: No intracranial bleeds or masses. There is cerebral volume loss for age, with resultant ventricular and sulcal prominence. There are possible old lacunar infarcts involving the right caudate, bilateral basal ganglia and left internal capsule. There are periventricular and deep white matter chronic small vessel ischemic changes. There is intracranial internal carotid artery atherosclerosis. Skull and face: Calvarium and visualized facial bones appear intact, without suspicious lesions. Sinuses: Right maxillary sinus mucosal thickening. The mastoids are clear. IMPRESSION: 1. No acute intracranial abnormalities. No intracranial bleed. 2. Cerebral volume loss and chronic microvascular ischemic changes. 3. Possivle old lacunar infarcts. 4. Right maxillary sinus mucosal thickening. Dictated by: Latesha Tovar M.D. on 04/16/2019 at 13:50 Approved by: Latesha Tovar M.D. on 04/16/2019 at 13:55
--- NOTE | 2019-04-16 13:38 | ED_ITS ---
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 She was found in her closet. Unknown whether any injury. She states she has fallen multiple times this week because she tripped. She states that she remembers going into the closet to get a specific pair of pants and could not find them. She currently denies any specific injury, notes that her lower legs always hurt and has had cellulitis. Nurse practitioner states that fall was unwitnessed, but apparently she may have some said at some point that she hit or hurt her head. No apparent loss of consciousness known, she has seemed at baseline mentation and mobility. Nurse practitioner notes that she had seen her a couple of days ago for some rectal bleeding and had a firm belly, thought perhaps due to constipation and was going to talk to patient's son about doing further testing. Patient states that she has not had any abdominal pain, nausea or vomiting today and believes that she ate breakfast. She is a tangential historian. Nurse practitioner reports that patient's baseline is ?pain everywhere?. She does have chronic bilateral lower extremity swelling and redness, worse on the right. They occasionally treat for cellulitis but do not tend to see significant changes. She saw her 2 days ago and has not noted any new change. Related Data Home Medications Medication Instructions Recorded Confirmed acetaminophen 650 mg PO TID PRN #0 12/16/17 04/16/19 blood sugar diagnostic 07/15/18 04/16/19 Soothe Night Time Lubricant 1 applic OPHTHALMIC (EYE) BEDTIME 04/16/19 04/16/19 ceramides 1,3,6-11 [CeraVe] 1 applic TOPICAL BID 04/16/19 04/16/19 citalopram [Celexa] 20 mg PO QPM 04/16/19 04/16/19 docusate sodium 100 mg PO DAILY 04/16/19 04/16/19 furosemide 80 mg PO DAILY 04/16/19 04/16/19 gabapentin 300 mg PO DAILY 04/16/19 04/16/19 lisinopril 10 mg PO DAILY 04/16/19 04/16/19 lorazepam 0.5 mg PO Q2H PRN 04/16/19 04/16/19 magnesium hydroxide [Milk of 60 ml PO BEDTIME 04/16/19 04/16/19 Magnesia] methadone 5 mg PO Q12H 04/16/19 04/16/19 morphine concentrate 0.25 ml SUBLINGUAL Q6H PRN 04/16/19 04/16/19 omeprazole 20 mg PO DAILY 04/16/19 04/16/19 ondansetron 4 mg PO Q4H PRN 04/16/19 04/16/19 potassium chloride 20 meq PO BID 04/16/19 04/16/19 propylene glycol [Systane Balance] 1 drp OPHTHALMIC (EYE) DIRECTED 04/16/19 04/16/19 quetiapine 25 mg PO BEDTIME 04/16/19 04/16/19 quetiapine 50 mg PO BID 04/16/19 04/16/19 ropinirole [Requip] 0.25 mg PO BEDTIME 04/16/19 04/16/19 sennosides [senna] 8.6 mg PO BID 04/16/19 04/16/19 trazodone 25 mg PO QAM 04/16/19 04/16/19 trazodone 50 mg PO BEDTIME 04/16/19 04/16/19 Previous Rx's Medication Instructions Recorded levothyroxine 50 mcg tablet 50 mcg PO DAILY #90 tab 06/20/18 loperamide 1 mg/5 mL oral liquid 1 mg PO BID PRN #118 ml 09/15/18 amoxicillin-pot clavulanate 1 tab PO Q12H #20 tab 04/16/19 [Augmentin] Allergies Allergy/AdvReac Type Severity Reaction Status Date / Time glimepiride [GLIMEPIRIDE] Allergy Unknown UNKNOWN Verified 10/06/18 15:02 Sulfa (Sulfonamide AdvReac Severe hives Verified 10/06/18 15:02 Antibiotics) [SULFA (SULFONAMIDE ANTIBIOTICS)] metformin [METFORMIN] AdvReac Unknown DIARRHEA Verified 10/06/18 15:02 Review of Systems <Jen Rodriguez PA-C - Last Filed: 04/16/19 20:31> Review of Systems ROS Unobtainable: All systems reviewed & are unremarkable except as noted in HPI and below Exam <Jen Rodriguez PA-C - Last Filed: 04/16/19 20:31> Narrative Exam Narrative: GENERAL APPEARANCE: Patient sitting comfortably, in no distress. HEENT: PERRL, EOMI, normal TMs and oropharynx. No scalp lesions or hematoma noted. There is a faint patch of linear ecchymoses right infraorbital area. No facial tenderness or palpable bony deformity NECK: Supple, no masses LUNGS: Clear to auscultation bilaterally. HEART: Rate and rhythm regular without murmur, normal S1 and S2, no S3 or S4. ABDOMEN: Moderate firmness over the inferior quadrants, very minimal tenderness without guarding or rebound, ND, + BS x 4 quadrants NEUROLOGIC: Alert, pleasantly confused, speech is fluent MUSCULOSKELETAL: No point tenderness over the cervical, thoracic, or lumbar sp ine. Full Csp AROM without tenderness. Full range of motion of the upper extremities. No tenderness over the hips. Tender throughout the lower legs, ankles and feet bilaterally, no joint effusion EXTREMITIES: Moderate pitting edema bilateral inferior extremities which are erythematous, not warm to touch. Somewhat more on the right side. Initial Vital Signs Initial Vital Signs: Vital Signs Temperature 99.0 F 04/16/19 12:32 Pulse Rate 70 04/16/19 12:32 Respiratory Rate 15 04/16/19 12:32 Blood Pressure 132/70 04/16/19 12:32 Pulse Oximetry 96 04/16/19 12:32 <Eleonora Dobbins DO - Last Filed: 04/17/19 08:17> Initial Vital Signs Initial Vital Signs: Vital Signs Temperature 99.0 F 04/16/19 12:32 Pulse Rate 70 04/16/19 12:32 Respiratory Rate 15 04/16/19 12:32 Blood Pressure 132/70 04/16/19 12:32 Pulse Oximetry 96 04/16/19 12:32 PFSH <Jen Rodriguez PA-C - Last Filed: 04/16/19 20:31> Social History marital status: household members: spouse Smoking Status: Former smoker alcohol intake: former substance use type: does not use Course <Jen Rodriguez PA-C - Last Filed: 04/16/19 20:31> Additional Information: I have spoken with patient's PCP LOCAL TRUCK DRIVER Love and reviewed findings. She is more anemic than last month, does have significant constipation and also appears to have pneumonia on chest x-ray though no complaints or reports of respiratory symptoms. Patient does not appear to be in any distress at all. Elected to treat the pneumonia, and she is going to discuss how aggressive to be with further workup with patient's son and POA. She will follow up with patient tomorrow. Findings were reviewed with patient and she is agreeable Orders Ordered: ED Orders 04/16/19 13:10 XR acute abdomen series Stat 04/16/19 13:22 CT head/brain wo con Stat 04/16/19 13:59 Complete Blood Count AUTO DIFF Stat Comprehensive Metabolic Panel Stat Magnesium Stat Vital Signs - 8 hr 04/16/19 12:32 04/16/19 13:15 04/16/19 14:15 Temperature 99.0 F Pulse Rate 70 66 68 Respiratory Rate 15 14 Blood Pressure 132/70 Blood Pressure [Left Arm] 134/66 144/72 H Pulse Oximetry 96 96 96 04/16/19 15:17 Temperature Pulse Rate 77 Respiratory Rate Blood Pressure Blood Pressure [Left Arm] 139/71 Pulse Oximetry 95 <Eleonora Dobbins DO - Last Filed: 04/17/19 08:17> Orders Ordered: ED Orders 04/16/19 13:10 XR acute abdomen series Stat 04/16/19 13:22 CT head/brain wo con Stat 04/16/19 13:59 Complete Blood Count AUTO DIFF Stat Comprehensive Metabolic Panel Stat Magnesium Stat Vital Signs - 8 hr 04/16/19 12:32 04/16/19 13:15 04/16/19 14:15 Temperature 99.0 F Pulse Rate 70 66 68 Respiratory Rate 15 14 Blood Pressure 132/70 Blood Pressure [Left Arm] 134/66 144/72 H Pulse Oximetry 96 96 96 04/16/19 15:17 Temperature Pulse Rate 77 Respiratory Rate Blood Pressure Blood Pressure [Left Arm] 139/71 Pulse Oximetry 95 MDM - Fall <Jen Rodriguez PA-C - Last Filed: 04/16/19 20:31> Lab Data Attestation: I reviewed the patient's lab results. Result diagrams: 04/16/19 13:59 04/16/19 13:59 Lab Results 04/16/19 04/16/19 Range/Units 13:59 13:59 WBC 9.5 (4.5-11.0) X10^3/uL RBC 2.78 L (4.0-5.2) X10^6/uL Hgb 8.9 L (12.0-16.0) g/dL Hct 26.2 L (36-46) % MCV 94.4 (80-100) fL MCH 32.1 (26-34) PG MCHC 34.1 (30-36) % RDW 14.4 (11.6-14.8) % Plt Count 210 (150-400) X10^3/uL Neut % (Auto) 84.6 H (50-75) % Lymph % (Auto) 7.1 L (25-40) % [place] % (Auto) 7.3 (3-14) % Eos % (Auto) 0.8 L (2-4) % Baso % (Auto) 0.2 (0-2) % Neut # (Auto) 8000 H (2118-3325) /uL Lymph # (Auto) 700 L (3344-9187) /uL [place] # (Auto) 700 (0-900) /uL Eos # (Auto) 100 (0-450) /uL Baso # (Auto) 0 (0-100) /uL Sodium 139 (137-145) mmol/L Potassium 4.6 (3.4-5.1) mmol/L Chloride 97 L (98-107) mmol/L Carbon Dioxide 33 H (22-32) mmol/L BUN 46 H (7-17) mg/dL Creatinine 1.40 H (0.52-1.04) mg/dL Estimated GFR 36.4 L (>60) mL/min BUN/Creatinine Ratio 32.9 H (6-22) Glucose 88 (80-110) mg/dL Calcium 8.9 (8.4-10.2) mg/dL Magnesium 2.1 (1.6-2.3) mg/dL Total Bilirubin 0.5 (0.2-1.3) mg/dL AST 44 H (14-36) IU/L ALT 31 (9-52) IU/L Alkaline Phosphatase 105 (38-126) U/L Total Protein 7.3 (6.3-8.2) g/dL Albumin 3.9 (3.5-5.0) g/dL Globulin 3.4 (1.7-4.1) g/dL Albumin/Globulin Ratio 1.1 (1.0-2.8) Imaging Data Chest x-ray: Radiologist's impression: [address] [address] XRay Report Signed Patient: Deja No JANENE#: [id number] : 1940Acct:[id number] Age/Sex: 78 / FDate of Service: 04/16/19 Loc: ED Accession Number: [id number] Procedure: XR acute abdomen series Ordering Provider: Jen Rodriguez P.A-C PROCEDURE: XR ACUTE ABDOMEN SERIES INDICATIONS: abd fullness TECHNIQUE: One view chest and two views of the abdomen were acquired. COMPARISON: [facility], CR, XR CHEST 1V, 09/06/2018, 1:52. FINDINGS: Surgical changes and devices: None. Chest: Patchy areas of consolidation are identified throughout the right lung. Heart size is enlarged. There is aortic atherosclerosis. No pleural effusions. No pneumoperitoneum. Abdomen: No air-filled distended small bowel loops are identified demonstrating air-fluid levels. Large amount of stool seen throughout the colon. No suspicious calcifications. Visualized solid organ contours appear normal. Bones: No suspicious bony lesions. There is severe dextroscoliosis of the lumbar spine. IMPRESSION: 1. Patchy airspace disease within the right lung is suspicious for pneumonia. Followup imaging in 3-4 weeks is recommended to document complete resolution and exclude an underlying lesion. 2. Probable colonic constipation. No bowel obstruction. Dictated by: Nico Hope M.D. on 04/16/2019 at 13:09 Approved by: Nico Hope M.D. on 04/16/2019 at 13:11 CT scan - head: Radiologist's impression: [address] [address] [address] Scan Report Signed Patient: Deja No JANENE#: [id number] : 1940Acct:[id number] Age/Sex: 78 / FDate of Service: 04/16/19 Loc: ED Accession Number: [id number] Procedure: CT head/brain wo con Ordering Provider: Jen Rodriguez P.A-C PROCEDURE: CT HEAD/BRAIN WO CON INDICATIONS: fall, chronic confusion TECHNIQUE: Noncontrast 4.5 mm thick angled axial sections acquired from the foramen magnum to the vertex, with coronal and sagittal reformats. For radiation dose reduction, the following was used: automated exposure control, adjustment of mA and/or kV according to patient size. COMPARISON: [facility], CT, HEAD WITHOUT CONTRAST, 02/15/2017, 3:20. [facility], MR, BRAIN WITHOUT CONTRAST, 06/18/2007, 10:28. [facility], CT, CT HEAD/BRAIN WO CON, 09/06/2018, 1:48. FINDINGS: Image quality: Excellent. CSF spaces: Basal cisterns are patent. No extra-axial fluid collections. The ventricles are symmetric in size and shape. Brain: No intracranial bleeds or masses. There is cerebral volume loss for age, with resultant ventricular and sulcal prominence. There are possible old lacunar infarcts involving the right caudate, bilateral basal ganglia and left internal capsule. There are periventricular and deep white matter chronic small vessel ischemic changes. There is intracranial internal carotid artery atherosclerosis. Skull and face: Calvarium and visualized facial bones appear intact, without suspicious lesions. Sinuses: Right maxillary sinus mucosal thickening. The mastoids are clear. IMPRESSION: 1. No acute intracranial abnormalities. No intracranial bleed. 2. Cerebral volume loss and chronic microvascular ischemic changes. 3. Possivle old lacunar infarcts. 4. Right maxillary sinus mucosal thickening. Dictated by: Latesha Tovar M.D. on 04/16/2019 at 13:50 Approved by: Latesha Tovar M.D. on 04/16/2019 at 13:55 <Eleonora Dobbins DO - Last Filed: 04/17/19 08:17> Lab Data Lab Results 04/16/19 04/16/19 Range/Units 13:59 13:59 WBC 9.5 (4.5-11.0) X10^3/uL RBC 2.78 L (4.0-5.2) X10^6/uL Hgb 8.9 L (12.0-16.0) g/dL Hct 26.2 L (36-46) % MCV 94.4 (80-100) fL MCH 32.1 (26-34) PG MCHC 34.1 (30-36) % RDW 14.4 (11.6-14.8) % Plt Count 210 (150-400) X10^3/uL Neut % (Auto) 84.6 H (50-75) % Lymph % (Auto) 7.1 L (25-40) % [place] % (Auto) 7.3 (3-14) % Eos % (Auto) 0.8 L (2-4) % Baso % (Auto) 0.2 (0-2) % Neut # (Auto) 8000 H (8109-4947) /uL Lymph # (Auto) 700 L (9787-9137) /uL [place] # (Auto) 700 (0-900) /uL Eos # (Auto) 100 (0-450) /uL Baso # (Auto) 0 (0-100) /uL Sodium 139 (137-145) mmol/L Potassium 4.6 (3.4-5.1) mmol/L Chloride 97 L (98-107) mmol/L Carbon Dioxide 33 H (22-32) mmol/L BUN 46 H (7-17) mg/dL Creatinine 1.40 H (0.52-1.04) mg/dL Estimated GFR 36.4 L (>60) mL/min BUN/Creatinine Ratio 32.9 H (6-22) Glucose 88 (80-110) mg/dL Calcium 8.9 (8.4-10.2) mg/dL Magnesium 2.1 (1.6-2.3) mg/dL Total Bilirubin 0.5 (0.2-1.3) mg/dL AST 44 H (14-36) IU/L ALT 31 (9-52) IU/L Alkaline Phosphatase 105 (38-126) U/L Total Protein 7.3 (6.3-8.2) g/dL Albumin 3.9 (3.5-5.0) g/dL Globulin 3.4 (1.7-4.1) g/dL Albumin/Globulin Ratio 1.1 (1.0-2.8) Discharge Plan Departure Patient Disposition: Home Clinical Impression: Fall Qualifiers: Encounter type: initial encounter Qualified Code(s): W19.XXXA - Unspecified fall, initial encounter Pneumonia Qualifiers: Pneumonia type: due to unspecified organism Laterality: right Lung location: unspecified part of lung Qualified Code(s): J18.9 - Pneumonia, unspecified organism Constipation Qualifiers: Constipation type: unspecified constipation type Qualified Code(s): K59.00 - Constipation, unspecified Anemia Qualifiers: Anemia type: unspecified type Qualified Code(s): D64.9 - Anemia, unspecified Discharge Date/Time: 04/16/19 15:19 Interventions: ED Discharge Assessment Last Done: 04/16/19 15:18 Instructions: DI for Pneumonia -- Adult, How to Prevent Falls Activity Restrictions/Additional Instructions: There was no acute problem found on your head scan today. It did look like you have some pneumonia on your chest x-ray as well as constipation. I have prescribed an antibiotic for this, and nurse practitioner Hillray will follow up with you tomorrow to assess your progress Prescriptions: New amoxicillin-pot clavulanate [Augmentin] 875-125 mg tablet 1 tab PO Q12H Qty: 20 RF: 0 No Action acetaminophen 650 MG tablet extended release 650 mg PO TID PRN (Reason: pain) Qty: 0 RF: 0 levothyroxine 50 mcg tablet 50 mcg PO DAILY Qty: 90 RF: 1 loperamide 1 mg/5 mL liquid 1 mg PO BID PRN (Reason: loose stool) Qty: 118 RF: 1 blood sugar diagnostic strip RF: 0 sennosides [senna] 8.6 mg Tablet 8.6 mg PO BID RF: 0 trazodone 50 mg Tablet 50 mg PO BEDTIME RF: 0 trazodone 50 mg Tablet 25 mg PO QAM RF: 0 potassium chloride 20 mEq tablet,ER particles/crystals 20 meq PO BID RF: 0 lorazepam 0.5 mg Tablet 0.5 mg PO Q2H PRN (Reason: anxiety/dyspnea) RF: 0 magnesium hydroxide [Milk of Magnesia] 400 mg/5 mL Suspension 60 ml PO BEDTIME RF: 0 furosemide 80 mg Tablet 80 mg PO DAILY RF: 0 lisinopril 10 mg tablet 10 mg PO DAILY RF: 0 docusate sodium 100 mg Capsule 100 mg PO DAILY RF: 0 gabapentin 300 mg Capsule 300 mg PO DAILY RF: 0 methadone 5 mg tablet 5 mg PO Q12H RF: 0 ondansetron 4 mg Tablet,Disintegrating 4 mg PO Q4H PRN (Reason: Nausea And Vomiting) RF: 0 quetiapine 50 mg tablet 50 mg PO BID RF: 0 CeraVe Cream 1 applic topical BID RF: 0 Systane Balance 0.6 % Drops 1 drp ophthalmic (eye) DIRECTED RF: 0 morphine concentrate 20 mg/mL Syringe 0.25 ml SUBLINGUAL Q6H PRN (Reason: pain/dyspnea) RF: 0 Soothe Night Time Lubricant 1 applic ophthalmic (eye) BEDTIME RF: 0 quetiapine 25 mg tablet 25 mg PO BEDTIME RF: 0 citalopram [Celexa] 20 mg tablet 20 mg PO QPM RF: 0 ropinirole [Requip] 0.25 mg tablet 0.25 mg PO BEDTIME RF: 0 omeprazole 20 mg capsule,delayed release(DR/EC) 20 mg PO DAILY RF: 0 Referrals: Nessa Walker [Other] (fax [phone]) <Eleonora Dobbins DO - Last Filed: 04/17/19 08:17> Cosign ED Attending Cosignature Attestation: I was immediately available in the department for consultation. Documentation has been reviewed. I agree with assessment and plan.
[2019-04-16 14:07] LABS: Add Manual Diff / Slide Review NO; Basophils Absolute Auto 0 /uL (0-100); Basophils Percent Auto 0.2 % (0-2); Eosinophils Absolute Auto 100 /uL (0-450); Eosinophils Percent Auto 0.8 % (2-4); Hematocrit 26.2 % (36-46); Hemoglobin 8.9 g/dL (12.0-16.0); Lymphocytes Absolute Auto 700 /uL (1100-4500); Lymphocytes Percent Auto 7.1 % (25-40); Mean Corpuscular HGB Conc 34.1 % (30-36); Mean Corpuscular Hemoglobin 32.1 PG (26-34); Mean Corpuscular Volume 94.4 fL (80-100); Monocytes Absolute Auto 700 /uL (0-900); Monocytes Percent Auto 7.3 % (3-14); Neutrophils Absolute Auto 8000 /uL (1500-7000); Neutrophils Percent Auto 84.6 % (50-75); Platelet Count 210 X10^3/uL (150-400); Red Blood Cell Count 2.78 X10^6/uL (4.0-5.2); Red Cell Distribution Width 14.4 % (11.6-14.8); White Blood Cell Count 9.5 X10^3/uL (4.5-11.0)
[2019-04-16 14:15] VITALS: BP 144/72; PULSE 68; O2SAT 96
[2019-04-16 14:16] LABS: Alanine Aminotransferase 31 IU/L (9-52); Albumin 3.9 g/dL (3.5-5.0); Albumin Globulin Ratio 1.1 (1.0-2.8); Alkaline Phosphatase 105 U/L (38-126); Aspartate Aminotransferase 44 IU/L (14-36); BUN Creatinine Ratio 32.9 (6-22); Bilirubin Total 0.5 mg/dL (0.2-1.3); Blood Urea Nitrogen 46 mg/dL (7-17); Calcium 8.9 mg/dL (8.4-10.2); Carbon Dioxide 33 mmol/L (22-32); Chloride 97 mmol/L (98-107); Estimated Glomerular Filt Rate 36.4 mL/min (>60); Globulin 3.4 g/dL (1.7-4.1); Glucose 88 mg/dL (80-110); HEMOLYSIS < 15 (0-50); Magnesium 2.1 mg/dL (1.6-2.3); Potassium 4.6 mmol/L (3.4-5.1); Sodium 139 mmol/L (137-145); Total Protein 7.3 g/dL (6.3-8.2)
[2019-04-16 15:17] VITALS: BP 139/71; PULSE 77; O2SAT 95
== END 2019-04-16 15:19 | disposition home or self-care (01) ==
PROVIDERS: Emergency Provider Internal Medicine; Family Provider Family Medicine; PCP Family Medicine
DX: J18.9 Pneumonia, unspecified organism (principal); K59.00 Constipation, unspecified; D64.9 Anemia, unspecified; W19.XXXA Unspecified fall, initial encounter; S09.90XA Unspecified injury of head, initial encounter
CPT/HCPCS: 36415; 70450; 74022; 80053; 83735; 85025; 99283; 99284

== ENCOUNTER → 2019-04-17 07:45 | Outpatient (ROUT) | payer MEDICARE, SELFPAY ==
[2019-04-17 09:08] LABS: Add Manual Diff / Slide Review NO; Basophils Absolute Auto 0 /uL (0-100); Basophils Percent Auto 0.4 % (0-2); Eosinophils Absolute Auto 100 /uL (0-450); Eosinophils Percent Auto 0.8 % (2-4); Hematocrit 27.4 % (36-46); Hemoglobin 9.3 g/dL (12.0-16.0); Lymphocytes Absolute Auto 600 /uL (1100-4500); Lymphocytes Percent Auto 6.7 % (25-40); Mean Corpuscular HGB Conc 33.8 % (30-36); Mean Corpuscular Hemoglobin 31.9 PG (26-34); Mean Corpuscular Volume 94.3 fL (80-100); Monocytes Absolute Auto 600 /uL (0-900); Neutrophils Absolute Auto 7700 /uL (1500-7000); Neutrophils Percent Auto 85.1 % (50-75); Platelet Count 238 X10^3/uL (150-400); Red Blood Cell Count 2.91 X10^6/uL (4.0-5.2); Red Cell Distribution Width 14.7 % (11.6-14.8); White Blood Cell Count 9.1 X10^3/uL (4.5-11.0)
[2019-04-17 09:37] LABS: BUN Creatinine Ratio 32.5 (6-22); Blood Urea Nitrogen 39 mg/dL (7-17); Calcium 8.8 mg/dL (8.4-10.2); Carbon Dioxide 35 mmol/L (22-32); Chloride 97 mmol/L (98-107); Estimated Glomerular Filt Rate 43.4 mL/min (>60); Glucose 118 mg/dL (80-110); HEMOLYSIS < 15 (0-50); Potassium 4.8 mmol/L (3.4-5.1); Sodium 142 mmol/L (137-145)
== END ==
PROVIDERS: Family Provider Family Medicine; PCP Family Medicine; Visit Provider Nurse Practitioner Family
DX: J18.9 Pneumonia, unspecified organism (principal); N17.9 Acute kidney failure, unspecified
CPT/HCPCS: 36415; 80048; 85025

== ENCOUNTER → 2019-04-27 09:42 | Outpatient (ROUT) | payer MEDICARE, SELFPAY ==
[2019-04-27 11:10] LABS: Add Manual Diff / Slide Review NO; Basophils Absolute Auto 0 /uL (0-100); Basophils Percent Auto 0.4 % (0-2); Eosinophils Absolute Auto 0 /uL (0-450); Eosinophils Percent Auto 0.8 % (2-4); Hematocrit 28.1 % (36-46); Hemoglobin 9.6 g/dL (12.0-16.0); Lymphocytes Absolute Auto 800 /uL (1100-4500); Lymphocytes Percent Auto 12.3 % (25-40); Mean Corpuscular HGB Conc 34.1 % (30-36); Mean Corpuscular Hemoglobin 31.8 PG (26-34); Mean Corpuscular Volume 93.3 fL (80-100); Monocytes Absolute Auto 400 /uL (0-900); Neutrophils Absolute Auto 5100 /uL (1500-7000); Neutrophils Percent Auto 79.5 % (50-75); Platelet Count 284 X10^3/uL (150-400); Red Blood Cell Count 3.01 X10^6/uL (4.0-5.2); Red Cell Distribution Width 14.7 % (11.6-14.8); White Blood Cell Count 6.4 X10^3/uL (4.5-11.0)
[2019-04-27 11:37] LABS: Blood Urea Nitrogen 24 mg/dL (7-17); Calcium 9.2 mg/dL (8.4-10.2); Carbon Dioxide 34 mmol/L (22-32); Chloride 96 mmol/L (98-107); Estimated Glomerular Filt Rate 53.6 mL/min (>60); Glucose 174 mg/dL (80-110); HEMOLYSIS < 15 (0-50); Potassium 4.2 mmol/L (3.4-5.1); Sodium 139 mmol/L (137-145)
== END ==
PROVIDERS: Family Provider Family Medicine; PCP Family Medicine; Visit Provider Nurse Practitioner Family
DX: E11.9 Type 2 diabetes mellitus without complications (principal); R60.9 Edema, unspecified; J18.9 Pneumonia, unspecified organism
CPT/HCPCS: 36415; 80048; 83036; 85025

== ENCOUNTER → 2019-05-06 06:42 | Outpatient (ROUT) | payer MEDICARE, SELFPAY ==
[2019-05-06 07:33] LABS: Hematocrit 26.7 % (36-46); Hemoglobin 8.8 g/dL (12.0-16.0)
== END ==
PROVIDERS: Family Provider Family Medicine; PCP Family Medicine; Visit Provider Nurse Practitioner Family
DX: D64.9 Anemia, unspecified (principal)
CPT/HCPCS: 36415; 85014; 85018

== ENCOUNTER → 2019-05-08 06:37 | Outpatient (ROUT) | payer MEDICARE, SELFPAY ==
[2019-05-08 08:14] LABS: Add Manual Diff / Slide Review NO; Basophils Absolute Auto 0 /uL (0-100); Basophils Percent Auto 0.4 % (0-2); Eosinophils Absolute Auto 100 /uL (0-450); Eosinophils Percent Auto 1.2 % (2-4); Hematocrit 27.3 % (36-46); Hemoglobin 9.1 g/dL (12.0-16.0); Lymphocytes Absolute Auto 900 /uL (1100-4500); Lymphocytes Percent Auto 16.6 % (25-40); Mean Corpuscular HGB Conc 33.5 % (30-36); Mean Corpuscular Hemoglobin 31.5 PG (26-34); Mean Corpuscular Volume 94.1 fL (80-100); Monocytes Absolute Auto 400 /uL (0-900); Monocytes Percent Auto 8.4 % (3-14); Neutrophils Absolute Auto 3800 /uL (1500-7000); Neutrophils Percent Auto 73.4 % (50-75); Platelet Count 264 X10^3/uL (150-400); Red Cell Distribution Width 15.6 % (11.6-14.8); White Blood Cell Count 5.2 X10^3/uL (4.5-11.0)
[2019-05-08 08:33] LABS: HEMOLYSIS 22 (0-50); Iron 48 ug/dL (37-170)
[2019-05-08 08:34] LABS: BUN Creatinine Ratio 37.1 (6-22); Blood Urea Nitrogen 52 mg/dL (7-17); Calcium 9.1 mg/dL (8.4-10.2); Carbon Dioxide 33 mmol/L (22-32); Chloride 98 mmol/L (98-107); Estimated Glomerular Filt Rate 36.4 mL/min (>60); Glucose 127 mg/dL (80-110); HEMOLYSIS < 15 (0-50); Potassium 4.7 mmol/L (3.4-5.1); Sodium 140 mmol/L (137-145)
[2019-05-08 08:45] LABS: Percent Iron Saturation 15 % (15-50); Total Iron Binding Capacity 314 ug/dL (265-497); Transferrin 262 mg/dL (206-381)
[2019-05-08 09:10] LABS: Ferritin 96.5 ng/mL (11.1-264)
[2019-05-08 09:25] LABS: Vitamin B12 387 pg/mL (239-931)
== END ==
PROVIDERS: Family Provider Family Medicine; PCP Family Medicine; Visit Provider Nurse Practitioner Family
DX: G25.81 Restless legs syndrome (principal); D64.9 Anemia, unspecified
CPT/HCPCS: 36415; 80048; 82607; 82728; 83540; 83550; 85025

== ENCOUNTER → 2019-05-20 07:28 | Outpatient (ROUT) | payer MEDICARE, SELFPAY ==
[2019-05-20 09:13] LABS: Alanine Aminotransferase 18 IU/L (9-52); Albumin 3.9 g/dL (3.5-5.0); Albumin Globulin Ratio 1.3 (1.0-2.8); Alkaline Phosphatase 127 U/L (38-126); Aspartate Aminotransferase 25 IU/L (14-36); Bilirubin Total 0.4 mg/dL (0.2-1.3); Blood Urea Nitrogen 29 mg/dL (7-17); Calcium 8.7 mg/dL (8.4-10.2); Carbon Dioxide 35 mmol/L (22-32); Chloride 96 mmol/L (98-107); Estimated Glomerular Filt Rate 53.6 mL/min (>60); Glucose 107 mg/dL (80-110); HEMOLYSIS < 15 (0-50); Potassium 4.6 mmol/L (3.4-5.1); Sodium 140 mmol/L (137-145); Total Protein 6.9 g/dL (6.3-8.2)
[2019-05-20 09:18] LABS: Hematocrit 30.6 % (36-46)
== END ==
PROVIDERS: Family Provider Family Medicine; PCP Family Medicine; Visit Provider Nurse Practitioner Family
DX: D64.9 Anemia, unspecified (principal); R60.9 Edema, unspecified
CPT/HCPCS: 36415; 80053; 85014; 85018

== ENCOUNTER → 2019-05-28 12:21 | Outpatient (CLI) | payer MEDICARE, SELFPAY ==
--- NOTE | 2019-05-28 | DI.CT.S_ITS ---
PROCEDURE: CT ABDOMEN PELVIS WO CON INDICATIONS: Unspecified abdominal pain TECHNIQUE: After the administration of oral contrast, 5 mm thick sections acquired from the diaphragms to the symphysis. 5 mm coronal and sagittal reformats were performed. For radiation dose reduction, the following was used: automated exposure control, adjustment of mA and/or kV according to patient size. COMPARISON: [facility], CR, XR ACUTE ABDOMEN SERIES, 04/16/2019, 13:28. FINDINGS: Image quality: Excellent. ABDOMEN: Lung bases: Patchy airspace opacities are present at the right lung base suggesting aspiration/infection. There is a small low density right pleural effusion. The heart is mildly enlarged. Solid organs: Liver is normal in size. Gallbladder is unremarkable. Pancreas is normal in size. Spleen is normal in size. No adrenal nodules. Both kidneys are normal in size, without hydronephrosis. There is a nonobstructing 3 mm diameter calculus within the lower pole of the left kidney. Peritoneum and bowel: There is a small hiatal hernia in the distal esophagus appears filled with fluid or food debris. The stomach is distended and filled with food debris. The small bowel demonstrates overall normal course and caliber. There is a large amount of stool throughout the colon. No colonic wall thickening or pericolonic fat stranding. There are extensive sigmoid colon diverticular outpouchings. Nodes and vessels: No retroperitoneal or mesenteric adenopathy by size criteria. Aorta and inferior vena cava are normal in size. There are scattered atheromatous calcifications throughout the aorta and iliac arteries bilaterally. Miscellaneous: No ventral hernias. PELVIS: Genitourinary: Bladder wall thickness is normal. Miscellaneous: No inguinal hernias or adenopathy. Bones: No suspicious bony lesions. No vertebral body compression fractures. IMPRESSION: 1. Limited study given the lack of oral or intravenous contrast. 2. Marked gastric distention with food debris in the distal esophagus and throughout the stomach and duodenum. A downstream small bowel appears decompressed. These findings raise the suspicion for occult gastric outlet obstruction or duodenal obstruction. If possible, decompression of the stomach and subsequent upper GI and small bowel follow-through could be helpful to evaluate for obstructing lesion. Alternatively, contrast-enhanced CT with oral and IV contrast could be used. 2. Large stool burden throughout the colon. 3. Diverticulosis. No acute diverticulitis. 4. Right basilar pulmonary air space opacities and small pleural effusions suspicious for aspiration/infection. Short interval followup is recommended with resolution of the patient's symptoms to ensure there is no underlying pulmonary pathology. Dictated by: Marina Rondon M.D. on 05/28/2019 at 15:49 Approved by: Marina Rondon M.D. on 05/28/2019 at 15:56
== END ==
PROVIDERS: Family Provider Family Medicine; PCP Family Medicine; Visit Provider Registered Nurse
DX: K57.90 Diverticulosis of intestine, part unspecified, without perforation or abscess without bleeding (principal); J90 Pleural effusion, not elsewhere classified; R10.9 Unspecified abdominal pain
CPT/HCPCS: 74176

== ENCOUNTER → 2019-06-03 11:15 | Outpatient (CLI) | payer MEDICARE, SELFPAY ==
--- NOTE | 2019-06-03 | DI.RAD.S_ITS ---
PROCEDURE: FL UPPER GI SERIES INDICATIONS: Abnormal findings on diagnostic image COMPARISON: Prior CT scan 05/28/19, which had raised some degree of concern for possible abnormality at the gastric cardia and distal esophagus. FINDINGS: KUB: Preprocedural supervisor park workers film demonstrates a normal bowel gas pattern. No suspicious abdominal calcifications. Visualized solid organ contours appear normal. Bony structures appear unremarkable. Esophagus: There is normal esophageal peristalsis. No strictures, extrinsic mass effects, or diverticula. No elicited gastroesophageal reflux. No hiatal hernia. Stomach: Stomach is normally distensible, without extrinsic mass effects. Pylorus and duodenal bulb demonstrate normal single-contrast morphology. There is ready transit of contrast through the gastric outlet into the small bowel. IMPRESSION: The study is limited by patient reduced mobility and the study was performed with single contrast technique. There is no suspicion for esophageal or gastric mass lesion at the gastric cardia area. A slight degree of reflux was observed at the gastroesophageal junction. There is a small sliding hiatal hernia. Dictated by: Derrick Padilla M.D. on 06/03/2019 at 12:51 Approved by: Derrick Padilla M.D. on 06/03/2019 at 12:52
== END ==
PROVIDERS: Family Provider Family Medicine; PCP Family Medicine; Visit Provider Registered Nurse
DX: R93.89 Abnormal findings on diagnostic imaging of other specified body structures (principal); K21.9 Gastro-esophageal reflux disease without esophagitis; K44.9 Diaphragmatic hernia without obstruction or gangrene
CPT/HCPCS: 74240

== ENCOUNTER 2019-06-07 05:29 | Emergency (ER) | payer MEDICARE, SELFPAY ==
[2019-06-07 05:35] VITALS: BP 163/89; PULSE 66; RESP 14; TEMP 36.1; O2SAT 99; BMI 21.4
--- NOTE | 2019-06-07 05:42 | ED_ITS ---
HPI - Fall <Dom Merida MD - Last Filed: 06/07/19 07:16> General Chief Complaint: Fall Stated Complaint: GLF Time Seen by Provider: 06/07/19 05:41 Source: EMS Mode of arrival: EMS Limitations: altered mental status History of Present Illness HPI Narrative: The patient resides at [facility]. She apparently fell in her room. She was found on the floor. She has a forehead contusion. She has dementia, she cannot tell me how she fell. She does have for head discomfort. She has no obvious visual disturbance. She cannot tell me about other pain/injury sites. She indicates no other source of pain during the exam. Medical records are reviewed, she is not on blood thinners. The patient does not feel like she has been ill. Related Data Home Medications Medication Instructions Recorded Confirmed acetaminophen 650 mg PO TID PRN #0 12/16/17 04/16/19 blood sugar diagnostic 07/15/18 04/16/19 Soothe Night Time Lubricant 1 applic OPHTHALMIC (EYE) BEDTIME 04/16/19 04/16/19 ceramides 1,3,6-11 [CeraVe] 1 applic TOPICAL BID 04/16/19 04/16/19 docusate sodium 100 mg PO DAILY 04/16/19 04/16/19 furosemide 80 mg PO DAILY 04/16/19 04/16/19 gabapentin 300 mg PO DAILY 04/16/19 04/16/19 lisinopril 10 mg PO DAILY 04/16/19 04/16/19 lorazepam 0.5 mg PO Q2H PRN 04/16/19 04/16/19 magnesium hydroxide [Milk of 60 ml PO BEDTIME 04/16/19 04/16/19 Magnesia] methadone 5 mg PO Q12H 04/16/19 04/16/19 morphine concentrate 0.25 ml SUBLINGUAL Q6H PRN 04/16/19 04/16/19 ondansetron 4 mg PO Q4H PRN 04/16/19 04/16/19 potassium chloride 20 meq PO BID 04/16/19 04/16/19 propylene glycol [Systane Balance] 1 drp OPHTHALMIC (EYE) DIRECTED 04/16/19 04/16/19 quetiapine 25 mg PO BEDTIME 04/16/19 04/16/19 quetiapine 50 mg PO BID 04/16/19 04/16/19 ropinirole [Requip] 0.25 mg PO BEDTIME 04/16/19 04/16/19 sennosides [senna] 8.6 mg PO BID 04/16/19 04/16/19 trazodone 25 mg PO QAM 04/16/19 04/16/19 trazodone 50 mg PO BEDTIME 04/16/19 04/16/19 Previous Rx's Medication Instructions Recorded levothyroxine 50 mcg tablet 50 mcg PO DAILY #90 tab 06/20/18 loperamide 1 mg/5 mL oral liquid 1 mg PO BID PRN #118 ml 09/15/18 amoxicillin-pot clavulanate 1 tab PO Q12H #20 tab 04/16/19 [Augmentin] omeprazole 20 mg capsule,delayed 20 mg PO DAILY #90 cap 04/24/19 release citalopram 20 mg tablet 20 mg PO QPM #90 tab 05/13/19 doxycycline hyclate 100 mg PO BID #14 cap 06/07/19 Allergies Allergy/AdvReac Type Severity Reaction Status Date / Time glimepiride [GLIMEPIRIDE] Allergy Unknown UNKNOWN Verified 10/06/18 15:02 Sulfa (Sulfonamide AdvReac Severe hives Verified 10/06/18 15:02 Antibiotics) [SULFA (SULFONAMIDE ANTIBIOTICS)] metformin [METFORMIN] AdvReac Unknown DIARRHEA Verified 10/06/18 15:02 Review of Systems <Dom Merida MD - Last Filed: 06/07/19 07:16> Review of Systems ROS Unobtainable: Unobtainable due to medical condition Exam <Dom Merida MD - Last Filed: 06/07/19 07:16> Initial Vital Signs Initial Vital Signs: Vital Signs Temperature 97.0 F L 06/07/19 05:35 Pulse Rate 66 06/07/19 05:35 Respiratory Rate 14 06/07/19 05:35 Blood Pressure 163/89 H 06/07/19 05:35 Pulse Oximetry 99 06/07/19 05:35 Const General: cooperative, comfortable and No in distress Nutritional Appearance: thin Orientation: alert, awake and confused HENMT Head: abrasion (Left forehead. No bony abnormalities are palpable.), No laceration and No palpable skull fracture Ears: TM's normal bilaterally Nose: nares normal and No epistaxis Face and sinus: normal facial exam Mouth: oral mucosae normal Throat: posterior oropharynx normal Eyes Pupils: PERRL EOM: EOM intact bilaterally Neck Neck: supple, No anterior neck swelling and No midline deformity Chest Chest: No crepitus and No tenderness Resp Effort & Inspection: normal respiratory effort and able to speak in complete sentences Auscultation: clear to auscultation bilaterally Cardio Rate: regular rate Rhythm: regular rhythm Heart Sounds: S1 normal and S2 normal Pulses: radial pulses present and dorsalis pedis present GI Inspection: non-distended Palpation: soft, no hepatosplenomegaly, No guarding, No pulsatile mass and No tender Auscultation: normal bowel sounds Back/Spine/Pelvis Back: normal to inspection and No ecchymosis Thoracic/Lumbar Spine: No thoracic spinal tenderness Sacroiliac Joints: nontender Skin General: no rashes or lesions noted Neuro General: alert and awake Speech: speech normal Extrem General: full ROM, no clubbing, cyanosis or edema, no pedal edema and no calf tenderness Other: Full range of motion in all joints of all extremities. <Eleonora Dobbins DO - Last Filed: 06/07/19 10:22> Initial Vital Signs Initial Vital Signs: Vital Signs Temperature 97.0 F L 06/07/19 05:35 Pulse Rate 66 06/07/19 05:35 Respiratory Rate 14 06/07/19 05:35 Blood Pressure 163/89 H 06/07/19 05:35 Pulse Oximetry 99 06/07/19 05:35 PFSH <Dom Merida MD - Last Filed: 06/07/19 07:16> Medical History (Updated 06/07/19 @ 08:47 by Kathleen Chance RN) Dementia (Acute) History of Whitt's esophagus (Chronic) History of IBS (Chronic) History of anxiety (Chronic) History of colon polyps (Chronic) History of depression (Chronic) History of diabetes mellitus (Chronic) History of diverticulitis (Chronic) History of gastroesophageal reflux (GERD) (Chronic) History of hemorrhoids (Chronic) History of hyperlipidemia (Chronic) History of hypertension (Chronic) History of hypothyroidism (Chronic) History of incontinence of feces (Chronic) History of osteoporosis (Chronic) History of peripheral neuropathy (Chronic) History of restless legs syndrome (Chronic) History of urinary incontinence (Chronic) Scoliosis (Chronic) Chronic venous stasis (Resolved) History of chickenpox (Resolved) History of measles (Resolved) Surgical History History of vein stripping (Resolved) History of bowel resection History of thyroidectomy Status post appendectomy Status post arthroscopy Status post bunionectomy Status post endoscopy Status post hammer toe correction Status post rotator cuff repair Family History Father CAD (coronary artery disease) Diabetes mellitus Mother Hypertension CAD (coronary artery disease) Sister Diabetes mellitus Social History marital status: household members: spouse Smoking Status: Former smoker alcohol intake: former substance use type: does not use Family History Father CAD (coronary artery disease) Diabetes mellitus Mother Hypertension CAD (coronary artery disease) Sister Diabetes mellitus Social History marital status: household members: spouse Smoking Status: Former smoker alcohol intake: former substance use type: does not use Course <Dom Merida MD - Last Filed: 06/07/19 07:16> Orders Ordered: ED Orders 06/07/19 05:42 CT cervical spine wo con Stat CT head/brain wo con Stat 06/07/19 07:01 XR chest 1V Stat 06/07/19 08:01 Basic Metabolic Panel Stat Complete Blood Count AUTO DIFF Stat Lactate (Lactic Acid) Stat Vital Signs - 8 hr 06/07/19 05:35 06/07/19 07:09 06/07/19 08:32 Temperature 97.0 F L Pulse Rate 66 66 62 Respiratory Rate 14 15 16 Blood Pressure 163/89 H Blood Pressure [Left Arm] 197/82 H 160/77 H Pulse Oximetry 99 98 98 06/07/19 08:46 Temperature Pulse Rate 62 Respiratory Rate 20 Blood Pressure 160/77 H Blood Pressure [Left Arm] Pulse Oximetry 98 <Eleonora Dobbins DO - Last Filed: 06/07/19 10:22> Orders Ordered: ED Orders 06/07/19 05:42 CT cervical spine wo con Stat CT head/brain wo con Stat 06/07/19 07:01 XR chest 1V Stat 06/07/19 08:01 Basic Metabolic Panel Stat Complete Blood Count AUTO DIFF Stat Lactate (Lactic Acid) Stat Vital Signs - 8 hr 06/07/19 05:35 06/07/19 07:09 06/07/19 08:32 Temperature 97.0 F L Pulse Rate 66 66 62 Respiratory Rate 14 15 16 Blood Pressure 163/89 H Blood Pressure [Left Arm] 197/82 H 160/77 H Pulse Oximetry 99 98 98 06/07/19 08:46 Temperature Pulse Rate 62 Respiratory Rate 20 Blood Pressure 160/77 H Blood Pressure [Left Arm] Pulse Oximetry 98 MDM - Fall <Dom Merida MD - Last Filed: 06/07/19 07:16> Lab Data Result diagrams: 06/07/19 08:01 06/07/19 08:01 Lab Results 06/07/19 06/07/19 06/07/19 Range/Units 08:01 08:01 08:01 WBC 4.2 L (4.5-11.0) X10^3/uL RBC 3.17 L (4.0-5.2) X10^6/uL Hgb 9.6 L (12.0-16.0) g/dL Hct 29.5 L (36-46) % MCV 93.2 (80-100) fL MCH 30.4 (26-34) PG MCHC 32.7 (30-36) % RDW 16.9 H (11.6-14.8) % Plt Count 274 (150-400) X10^3/uL Neut % (Auto) 60.4 (50-75) % Lymph % (Auto) 28.1 (25-40) % Pitt % (Auto) 9.1 (3-14) % Eos % (Auto) 1.9 L (2-4) % Baso % (Auto) 0.5 (0-2) % Neut # (Auto) 2500 (6211-5410) /uL Lymph # (Auto) 1200 (8209-3110) /uL Pitt # (Auto) 400 (0-900) /uL Eos # (Auto) 100 (0-450) /uL Baso # (Auto) 0 (0-100) /uL Sodium 139 (137-145) mmol/L Potassium 4.6 (3.4-5.1) mmol/L Chloride 95 L (98-107) mmol/L Carbon Dioxide 37 H (22-32) mmol/L BUN 25 H (7-17) mg/dL Creatinine 0.90 (0.52-1.04) mg/dL Estimated GFR > 60.0 (>60) mL/min BUN/Creatinine Ratio 27.8 H (6-22) Glucose 115 H (80-110) mg/dL Lactate 1.1 (0.7-2.1) mmol/L Calcium 9.4 (8.4-10.2) mg/dL <Eleonora Dobbins, DO - Last Filed: 06/07/19 10:22> Lab Data Attestation: I reviewed the patient's lab results. Lab Results 06/07/19 06/07/19 06/07/19 Range/Units 08:01 08:01 08:01 WBC 4.2 L (4.5-11.0) X10^3/uL RBC 3.17 L (4.0-5.2) X10^6/uL Hgb 9.6 L (12.0-16.0) g/dL Hct 29.5 L (36-46) % MCV 93.2 (80-100) fL MCH 30.4 (26-34) PG MCHC 32.7 (30-36) % RDW 16.9 H (11.6-14.8) % Plt Count 274 (150-400) X10^3/uL Neut % (Auto) 60.4 (50-75) % Lymph % (Auto) 28.1 (25-40) % Pitt % (Auto) 9.1 (3-14) % Eos % (Auto) 1.9 L (2-4) % Baso % (Auto) 0.5 (0-2) % Neut # (Auto) 2500 (4993-8987) /uL Lymph # (Auto) 1200 (7873-8113) /uL Pitt # (Auto) 400 (0-900) /uL Eos # (Auto) 100 (0-450) /uL Baso # (Auto) 0 (0-100) /uL Sodium 139 (137-145) mmol/L Potassium 4.6 (3.4-5.1) mmol/L Chloride 95 L (98-107) mmol/L Carbon Dioxide 37 H (22-32) mmol/L BUN 25 H (7-17) mg/dL Creatinine 0.90 (0.52-1.04) mg/dL Estimated GFR > 60.0 (>60) mL/min BUN/Creatinine Ratio 27.8 H (6-22) Glucose 115 H (80-110) mg/dL Lactate 1.1 (0.7-2.1) mmol/L Calcium 9.4 (8.4-10.2) mg/dL Imaging Data Chest x-ray: Radiologist's impression: PROCEDURE: XR CHEST 1V INDICATIONS: right lung consolidation noted on C-spine CT. TECHNIQUE: One view of the chest was acquired. COMPARISON: [facility], CR, SHOULDER MINIMUM 2 VIEW LEFT, 06/08/2008, 19:20. [facility], CR, XR RIBS LT MIN 3V W CXR1V, 07/29/2018, 14:40. [facility], CR, CHEST 1 VIEW, 02/15/2017, 3:15. [facility], CR, CHEST 2 VIEW, 12/05/2016, 15:10. [facility], CR, CHEST 2 VIEW, 01/07/2017, 16:36. [facility], CT, CT CERVICAL SPINE WO CON, 06/07/2019, 5:46. [facility], CR, XR CHEST 1V, 09/06/2018, 1:52. FINDINGS: Surgical changes and devices: None. Lungs and pleura: The lobe infiltrate is seen. There is minimal potential amount of infiltrate seen within the right lower lung as well. The left lung appears clear. No pneumothorax or pleural effusions are seen. Mediastinum: The cardiac contours are within normal limits. The aorta demonstrates calcification and tortuosity. Bones and chest wall: No suspicious bony lesions. Age-appropriate bony degenerative changes are seen. There is a remote fracture of the left humeral head seen. Overlying soft tissues appear unremarkable. IMPRESSION: Confirmation of right upper lobe infiltrate. Remote fracture of the left humeral head. Dictated by: Ruben Whipple M.D. on 06/07/2019 at 6:30 Approved by: Ruben Whipple M.D. on 06/07/2019 at 6:32 MDM Narrative Medical decision making narrative: Patient signed out to me by shift production supervisor provider. Right lung consolidation noted on cervical neck. Chest x-ray has been ordered. I have seen evaluated by patient myself. She is awake alert appropriate does not appear septic or toxic. She has small abrasion on the left side of her head. 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 She denies any cough or weakness. However due to patient's unreliability will do blood work. X-ray does show right lobe consolidation as well. She is afebrile and does not appear in respiratory distress in the emergency department. Blood work overall is reassuring. She does not appear septic she is not in significant respiratory distress. However I will treat her for pneumonia. Unable to provide adequate history. He appears comfortable.. Discharge Plan Departure Patient Disposition: Home Clinical Impression: Generalized anxiety disorder Contusion of forehead Qualifiers: Encounter type: initial encounter Qualified Code(s): S00.83XA - Contusion of other part of head, initial encounter Dementia Qualifiers: Dementia type: unspecified type Dementia behavioral disturbance: without behavioral disturbance Qualified Code(s): F03.90 - Unspecified dementia without behavioral disturbance Pneumonia Qualifiers: Pneumonia type: due to unspecified organism Laterality: right Lung location: upper lobe of lung Qualified Code(s): J18.1 - Lobar pneumonia, unspecified organism Discharge Date/Time: 06/07/19 08:47 Interventions: ED Discharge Assessment Last Done: 06/07/19 08:46 Instructions: Pneumonia-Adult Activity Restrictions/Additional Instructions: *You have been diagnosed with pneumonia, fall, forehead contusion *What to do: Pneumonia noted on x-ray however blood work today is reassuring. CT head and neck are negative *Continue to take medications as directed Doxycycline 100 mg twice a day for 7 days *Follow up with your primary care provider in 2-3 days *Return to ER if you should have increasing falls, increasing confusion or any new, worsening or concerning symptoms Prescriptions: New doxycycline hyclate 100 mg capsule 100 mg PO BID Qty: 14 RF: 0 No Action acetaminophen 650 MG tablet extended release 650 mg PO TID PRN (Reason: pain) Qty: 0 RF: 0 levothyroxine 50 mcg tablet 50 mcg PO DAILY Qty: 90 RF: 1 loperamide 1 mg/5 mL liquid 1 mg PO BID PRN (Reason: loose stool) Qty: 118 RF: 1 omeprazole 20 mg capsule,delayed release(DR/EC) 20 mg PO DAILY Qty: 90 RF: 3 citalopram [Celexa] 20 mg tablet 20 mg PO QPM Qty: 90 RF: 3 blood sugar diagnostic strip RF: 0 sennosides [senna] 8.6 mg Tablet 8.6 mg PO BID RF: 0 trazodone 50 mg Tablet 50 mg PO BEDTIME RF: 0 trazodone 50 mg Tablet 25 mg PO QAM RF: 0 potassium chloride 20 mEq tablet,ER particles/crystals 20 meq PO BID RF: 0 lorazepam 0.5 mg Tablet 0.5 mg PO Q2H PRN (Reason: anxiety/dyspnea) RF: 0 magnesium hydroxide [Milk of Magnesia] 400 mg/5 mL Suspension 60 ml PO BEDTIME RF: 0 furosemide 80 mg Tablet 80 mg PO DAILY RF: 0 lisinopril 10 mg tablet 10 mg PO DAILY RF: 0 docusate sodium 100 mg Capsule 100 mg PO DAILY RF: 0 gabapentin 300 mg Capsule 300 mg PO DAILY RF: 0 methadone 5 mg tablet 5 mg PO Q12H RF: 0 ondansetron 4 mg Tablet,Disintegrating 4 mg PO Q4H PRN (Reason: Nausea And Vomiting) RF: 0 quetiapine 50 mg tablet 50 mg PO BID RF: 0 CeraVe Cream 1 applic topical BID RF: 0 Systane Balance 0.6 % Drops 1 drp ophthalmic (eye) DIRECTED RF: 0 morphine concentrate 20 mg/mL Syringe 0.25 ml SUBLINGUAL Q6H PRN (Reason: pain/dyspnea) RF: 0 Soothe Night Time Lubricant 1 applic ophthalmic (eye) BEDTIME RF: 0 quetiapine 25 mg tablet 25 mg PO BEDTIME RF: 0 ropinirole [Requip] 0.25 mg tablet 0.25 mg PO BEDTIME RF: 0 amoxicillin-pot clavulanate [Augmentin] 875-125 mg tablet 1 tab PO Q12H Qty: 20 RF: 0 Referrals: Dorina Santos DO [Primary Care Provider] -
--- NOTE | 2019-06-07 05:42 | DI.CT.S_ITS ---
PROCEDURE: CT HEAD/BRAIN WO CON INDICATIONS: Fall. Forehead contusion. TECHNIQUE: Noncontrast 4.5 mm thick angled axial sections acquired from the foramen magnum to the vertex, with coronal and sagittal reformats. For radiation dose reduction, the following was used: automated exposure control, adjustment of mA and/or kV according to patient size. COMPARISON: [facility], CT, CT HEAD/BRAIN WO CON, 04/16/2019, 13:27. [facility], CT, CT HEAD/BRAIN WO CON, 09/06/2018, 1:48. FINDINGS: Image quality: Excellent. CSF spaces: Basal cisterns are patent. No extra-axial fluid collections. The ventricles are symmetric in size and shape. Brain: No intracranial bleeds or masses. There is cerebral volume loss for age, with resultant ventricular and sulcal prominence. There are periventricular and deep white matter chronic small vessel ischemic changes. There is vague low attenuation within the anterior limb of the right internal capsule adjacent to the head of the caudate nucleus, which appears normal. There is intracranial internal carotid artery atherosclerosis. Skull and face: Calvarium and visualized facial bones appear intact, without suspicious lesions. Sinuses: Visualized sinuses and mastoids are clear. IMPRESSION: Anterior limb right internal capsule hypodensity appears to represent microvascular atherosclerotic change given the stability of appearance over time with reference to prior CT scanning. No mass or intracranial hemorrhage. No trauma seen. Dictated by: Derrick Padilla M.D. on 06/07/2019 at 7:30 Approved by: Derrick Padilla M.D. on 06/07/2019 at 7:33
--- NOTE | 2019-06-07 05:42 | DI.CT.S_ITS ---
PROCEDURE: CT CERVICAL SPINE WO CON INDICATIONS: Fall. Forehead contusion TECHNIQUE: Noncontrast 3 mm thick sections acquired from the skull base to the T4 level. Sagittal and coronal reformats were then constructed. For radiation dose reduction, the following was used: automated exposure control, adjustment of mA and/or kV according to patient size. COMPARISON: [facility], CR, XR CHEST 1V, 06/07/2019, 7:08. [facility], CT, CT HEAD/BRAIN WO CON, 04/16/2019, 13:27. [facility], CT, CT HEAD/BRAIN WO CON, 09/06/2018, 1:48. [facility], CT, C-SPINE WITHOUT CONTRAST, 02/15/2017, 3:20. FINDINGS: Image quality: Excellent. Bones: No fractures or dislocations. Visualized superior ribs are intact. Note is made of moderately severe to severe degenerative disc disease at C5-6 and C6-7. No degenerative subluxation is associated. Soft tissues: Prevertebral soft tissues are normal in thickness. No paravertebral hematomas. No apical pneumothoraces there is a patchy left lung pneumonia pattern not previously present on prior recent chest plain film imaging 09/06/18. This can be seen on subsequent chest plain film imaging from today. IMPRESSION: No acute trauma found. Moderately severe to severe C5-C6 through C6-7 degenerative disc disease. Endplate [id number] articulation is present. Spinal and foraminal stenosis in this area would be expected. Depending on the clinical status followup by MR scanning may be warranted. Patchy pneumonia pattern right upper lung partially included in the study. Please also refer to chest plain film imaging from today which confirms this abnormality and allows its visualization more inferiorly. Dictated by: Derrick Padilla M.D. on 06/07/2019 at 7:33 Approved by: Derrick Padilla M.D. on 06/07/2019 at 7:38
--- NOTE | 2019-06-07 07:01 | DI.RAD.S_ITS ---
PROCEDURE: XR CHEST 1V INDICATIONS: right lung consolidation noted on C-spine CT. TECHNIQUE: One view of the chest was acquired. COMPARISON: [facility], CR, SHOULDER MINIMUM 2 VIEW LEFT, 06/08/2008, 19:20. [facility], CR, XR RIBS LT MIN 3V W CXR1V, 07/29/2018, 14:40. [facility], CR, CHEST 1 VIEW, 02/15/2017, 3:15. [facility], CR, CHEST 2 VIEW, 12/05/2016, 15:10. [facility], CR, CHEST 2 VIEW, 01/07/2017, 16:36. [facility], CT, CT CERVICAL SPINE WO CON, 06/07/2019, 5:46. [facility], CR, XR CHEST 1V, 09/06/2018, 1:52. FINDINGS: Surgical changes and devices: None. Lungs and pleura: The lobe infiltrate is seen. There is minimal potential amount of infiltrate seen within the right lower lung as well. The left lung appears clear. No pneumothorax or pleural effusions are seen. Mediastinum: The cardiac contours are within normal limits. The aorta demonstrates calcification and tortuosity. Bones and chest wall: No suspicious bony lesions. Age-appropriate bony degenerative changes are seen. There is a remote fracture of the left humeral head seen. Overlying soft tissues appear unremarkable. IMPRESSION: Confirmation of right upper lobe infiltrate. Remote fracture of the left humeral head. Dictated by: Ruben Whipple M.D. on 06/07/2019 at 6:30 Approved by: Ruben Whipple M.D. on 06/07/2019 at 6:32
[2019-06-07 07:09] VITALS: BP 197/82; PULSE 66; RESP 15; O2SAT 98
--- NOTE | 2019-06-07 07:10 | PC.NURSE ---
C Collar removed when cleared by Dr Merida. Pt assisted to use bedpan, she was able to help lift her hips.
[2019-06-07 08:08] LABS: Add Manual Diff / Slide Review NO; Basophils Absolute Auto 0 /uL (0-100); Basophils Percent Auto 0.5 % (0-2); Eosinophils Absolute Auto 100 /uL (0-450); Eosinophils Percent Auto 1.9 % (2-4); Hematocrit 29.5 % (36-46); Hemoglobin 9.6 g/dL (12.0-16.0); Lymphocytes Absolute Auto 1200 /uL (1100-4500); Lymphocytes Percent Auto 28.1 % (25-40); Mean Corpuscular HGB Conc 32.7 % (30-36); Mean Corpuscular Hemoglobin 30.4 PG (26-34); Mean Corpuscular Volume 93.2 fL (80-100); Monocytes Absolute Auto 400 /uL (0-900); Monocytes Percent Auto 9.1 % (3-14); Neutrophils Absolute Auto 2500 /uL (1500-7000); Neutrophils Percent Auto 60.4 % (50-75); Platelet Count 274 X10^3/uL (150-400); Red Blood Cell Count 3.17 X10^6/uL (4.0-5.2); Red Cell Distribution Width 16.9 % (11.6-14.8); White Blood Cell Count 4.2 X10^3/uL (4.5-11.0)
[2019-06-07 08:17] LABS: BUN Creatinine Ratio 27.8 (6-22); Blood Urea Nitrogen 25 mg/dL (7-17); Calcium 9.4 mg/dL (8.4-10.2); Carbon Dioxide 37 mmol/L (22-32); Chloride 95 mmol/L (98-107); Estimated Glomerular Filt Rate > 60.0 mL/min (>60); Glucose 115 mg/dL (80-110); HEMOLYSIS < 15 (0-50); Potassium 4.6 mmol/L (3.4-5.1); Sodium 139 mmol/L (137-145)
[2019-06-07 08:18] LABS: Lactate (Lactic Acid) 1.1 mmol/L (0.7-2.1)
[2019-06-07 08:32] VITALS: BP 160/77; PULSE 62; RESP 16; O2SAT 98
[2019-06-07 08:46] VITALS: BP 160/77; PULSE 62; RESP 20; O2SAT 98
== END 2019-06-07 08:47 | disposition home or self-care (01) ==
PROVIDERS: Emergency Provider Emergency Medicine; PCP Family Medicine
DX: S00.83XA Contusion of other part of head, initial encounter (principal); F03.90 Unspecified dementia, unspecified severity, without behavioral disturbance, psychotic disturbance, mood disturbance, and anxiety; J18.1 Lobar pneumonia, unspecified organism; F41.9 Anxiety disorder, unspecified; W19.XXXA Unspecified fall, initial encounter
CPT/HCPCS: 36415; 70450; 71045; 72125; 80048; 83605; 85025; 99283; 99284

== ENCOUNTER → 2019-06-17 07:58 | Outpatient (ROUT) | payer MEDICARE, SELFPAY ==
[2019-06-17 09:19] LABS: Blood Urea Nitrogen 33 mg/dL (7-17); Calcium 9.2 mg/dL (8.4-10.2); Carbon Dioxide 36 mmol/L (22-32); Chloride 93 mmol/L (98-107); Estimated Glomerular Filt Rate 47.9 mL/min (>60); Glucose 128 mg/dL (80-110); HEMOLYSIS < 15 (0-50); Potassium 5.2 mmol/L (3.4-5.1); Sodium 136 mmol/L (137-145)
== END ==
PROVIDERS: PCP Family Medicine; Visit Provider Nurse Practitioner Family
DX: Z79.899 Other long term (current) drug therapy (principal); R60.9 Edema, unspecified
CPT/HCPCS: 36415; 80048

== ENCOUNTER → 2019-06-24 07:22 | Outpatient (ROUT) | payer MEDICARE, SELFPAY ==
[2019-06-24 08:24] LABS: Hematocrit 28.8 % (36-46); Hemoglobin 9.5 g/dL (12.0-16.0)
[2019-06-24 08:43] LABS: BUN Creatinine Ratio 46.7 (6-22); Blood Urea Nitrogen 56 mg/dL (7-17); Calcium 9.3 mg/dL (8.4-10.2); Carbon Dioxide 34 mmol/L (22-32); Chloride 96 mmol/L (98-107); Estimated Glomerular Filt Rate 43.3 mL/min (>60); Glucose 133 mg/dL (80-110); HEMOLYSIS < 15 (0-50); Potassium 5.1 mmol/L (3.4-5.1); Sodium 138 mmol/L (137-145)
== END ==
PROVIDERS: PCP Family Medicine; Visit Provider Nurse Practitioner Family
DX: D64.9 Anemia, unspecified (principal); N18.9 Chronic kidney disease, unspecified; E78.5 Hyperlipidemia, unspecified
CPT/HCPCS: 36415; 80048; 85014; 85018

== ENCOUNTER → 2019-07-05 13:39 | Outpatient (ROUT) | payer MEDICARE, SELFPAY | PROVIDERS: PCP Family Medicine; Visit Provider Nurse Practitioner Family | DX: S81.001A Unspecified open wound, right knee, initial encounter (principal) | CPT/HCPCS: 87070; 87077; 87205 ==

== ENCOUNTER → 2019-07-06 08:01 | Outpatient (ROUT) | payer MEDICARE, SELFPAY ==
[2019-07-06 09:01] LABS: Add Manual Diff / Slide Review NO; Basophils Absolute Auto 0 /uL (0-100); Basophils Percent Auto 0.2 % (0-2); Eosinophils Absolute Auto 0 /uL (0-450); Eosinophils Percent Auto 0.5 % (2-4); Hematocrit 27.2 % (36-46); Hemoglobin 9.1 g/dL (12.0-16.0); Lymphocytes Absolute Auto 1000 /uL (1100-4500); Lymphocytes Percent Auto 11.4 % (25-40); Mean Corpuscular HGB Conc 33.5 % (30-36); Mean Corpuscular Hemoglobin 30.9 PG (26-34); Mean Corpuscular Volume 92.4 fL (80-100); Monocytes Absolute Auto 600 /uL (0-900); Neutrophils Absolute Auto 6900 /uL (1500-7000); Neutrophils Percent Auto 80.9 % (50-75); Platelet Count 263 X10^3/uL (150-400); Red Blood Cell Count 2.94 X10^6/uL (4.0-5.2); Red Cell Distribution Width 17.8 % (11.6-14.8); White Blood Cell Count 8.5 X10^3/uL (4.5-11.0)
[2019-07-06 09:11] LABS: HEMOLYSIS < 15 (0-50); Sodium 139 mmol/L (137-145)
[2019-07-06 09:12] LABS: BUN Creatinine Ratio 30.8 (6-22); Blood Urea Nitrogen 40 mg/dL (7-17); Calcium 9.5 mg/dL (8.4-10.2); Carbon Dioxide 35 mmol/L (22-32); Chloride 94 mmol/L (98-107); Estimated Glomerular Filt Rate 39.5 mL/min (>60); Glucose 168 mg/dL (80-110)
[2019-07-06 09:14] LABS: Potassium 5.6 mmol/L (3.4-5.1)
== END ==
PROVIDERS: PCP Family Medicine; Visit Provider Nurse Practitioner Family
DX: L03.90 Cellulitis, unspecified (principal)
CPT/HCPCS: 36415; 80048; 85025

== ENCOUNTER → 2019-07-08 10:00 | Outpatient (ROUT) | payer MEDICARE, SELFPAY ==
[2019-07-08 10:52] LABS: Hematocrit 28.2 % (36-46); Hemoglobin 9.4 g/dL (12.0-16.0)
== END ==
PROVIDERS: PCP Family Medicine; Visit Provider Nurse Practitioner Family
DX: D64.9 Anemia, unspecified (principal)
CPT/HCPCS: 36415; 85014; 85018

== ENCOUNTER → 2019-07-10 07:13 | Outpatient (ROUT) | payer MEDICARE, SELFPAY ==
[2019-07-10 07:51] LABS: Add Manual Diff / Slide Review NO; Basophils Absolute Auto 0 /uL (0-100); Basophils Percent Auto 0.5 % (0-2); Eosinophils Absolute Auto 100 /uL (0-450); Eosinophils Percent Auto 1.6 % (2-4); Hematocrit 23.1 % (36-46); Hemoglobin 7.7 g/dL (12.0-16.0); Lymphocytes Absolute Auto 1100 /uL (1100-4500); Lymphocytes Percent Auto 19.7 % (25-40); Mean Corpuscular HGB Conc 33.5 % (30-36); Mean Corpuscular Hemoglobin 30.9 PG (26-34); Mean Corpuscular Volume 92.2 fL (80-100); Monocytes Absolute Auto 500 /uL (0-900); Neutrophils Absolute Auto 4000 /uL (1500-7000); Neutrophils Percent Auto 70.2 % (50-75); Platelet Count 236 X10^3/uL (150-400); Red Cell Distribution Width 17.4 % (11.6-14.8); White Blood Cell Count 5.7 X10^3/uL (4.5-11.0)
[2019-07-10 08:30] LABS: BUN Creatinine Ratio 31.1 (6-22); Blood Urea Nitrogen 28 mg/dL (7-17); Calcium 8.6 mg/dL (8.4-10.2); Carbon Dioxide 33 mmol/L (22-32); Chloride 95 mmol/L (98-107); Estimated Glomerular Filt Rate > 60.0 mL/min (>60); Glucose 165 mg/dL (80-110); HEMOLYSIS < 15 (0-50); Potassium 4.4 mmol/L (3.4-5.1); Sodium 137 mmol/L (137-145)
== END ==
PROVIDERS: PCP Family Medicine; Visit Provider Nurse Practitioner Family
DX: D64.9 Anemia, unspecified (principal); L03.90 Cellulitis, unspecified
CPT/HCPCS: 36415; 80048; 85025

== ENCOUNTER → 2019-07-17 07:54 | Outpatient (ROUT) | payer MEDICARE, SELFPAY ==
[2019-07-17 09:24] LABS: Hematocrit 32.1 % (36-46); Hemoglobin 10.4 g/dL (12.0-16.0)
[2019-07-17 10:01] LABS: HEMOLYSIS < 15 (0-50); Iron 65 ug/dL (37-170)
[2019-07-17 10:11] LABS: Percent Iron Saturation 19 % (15-50); Total Iron Binding Capacity 351 ug/dL (265-497); Transferrin 299 mg/dL (206-381)
[2019-07-17 10:35] LABS: Ferritin 65.5 ng/mL (11.1-264)
== END ==
PROVIDERS: PCP Family Medicine; Visit Provider Nurse Practitioner Family
DX: D64.9 Anemia, unspecified (principal)
CPT/HCPCS: 36415; 82728; 83540; 83550; 85014; 85018

== ENCOUNTER 2019-08-09 10:46 | Emergency (ER) | payer MEDICARE, SELFPAY ==
[2019-08-09 11:06] VITALS: BP 142/64; PULSE 67; RESP 20; TEMP 36.6; O2SAT 78; BMI 21.2
--- NOTE | 2019-08-09 11:10 | ED.SOB ---
HPI - SOB/Dyspnea General Chief Complaint: Shortness of Breath/Dyspnea Stated Complaint: O2 is staying at 75% shortness of breath Time Seen by Provider: 08/09/19 11:00 Source: other (Facility nurse practitioner) Mode of arrival: Ambulatory History of Present Illness HPI Narrative: Patient sent to the emergency department from her care facility after being found to have low O2 sats. Prior to patient's arrival, I received a call from the facility nurse practitioner, who states she thought the patient may have pneumonia, so she started the patient on Levaquin and an albuterol inhaler couple of days ago. Nurse practitioner states that the patient has received 2 doses of the Levaquin, and she is not sure how much if any of the albuterol she has received, because it was written as an ?as needed order?. She states she is not at the facility with the patient and cannot verify the information. The patient is DNR and comfort measures only, and of a acute suffers from dementia. The nurse practitioner not aware of any other complaints for the patient. No staff has arrived with the patient to give any further information. The patient, when asked how she is doing, states ?pretty good?. Related Data Home Medications Medication Instructions Recorded Confirmed acetaminophen 650 mg PO TID PRN #0 12/16/17 04/16/19 blood sugar diagnostic 07/15/18 04/16/19 Soothe Night Time Lubricant 1 applic OPHTHALMIC (EYE) BEDTIME 04/16/19 04/16/19 ceramides 1,3,6-11 [CeraVe] 1 applic TOPICAL BID 04/16/19 04/16/19 docusate sodium 100 mg PO DAILY 04/16/19 04/16/19 furosemide 80 mg PO DAILY 04/16/19 04/16/19 gabapentin 300 mg PO DAILY 04/16/19 04/16/19 lisinopril 10 mg PO DAILY 04/16/19 04/16/19 lorazepam 0.5 mg PO Q2H PRN 04/16/19 04/16/19 magnesium hydroxide [Milk of 60 ml PO BEDTIME 04/16/19 04/16/19 Magnesia] methadone 5 mg PO Q12H 04/16/19 04/16/19 morphine concentrate 0.25 ml SUBLINGUAL Q6H PRN 04/16/19 04/16/19 ondansetron 4 mg PO Q4H PRN 04/16/19 04/16/19 potassium chloride 20 meq PO BID 04/16/19 04/16/19 propylene glycol [Systane Balance] 1 drp OPHTHALMIC (EYE) DIRECTED 04/16/19 04/16/19 quetiapine 25 mg PO BEDTIME 04/16/19 04/16/19 quetiapine 50 mg PO BID 04/16/19 04/16/19 ropinirole [Requip] 0.25 mg PO BEDTIME 04/16/19 04/16/19 sennosides [senna] 8.6 mg PO BID 04/16/19 04/16/19 trazodone 25 mg PO QAM 04/16/19 04/16/19 trazodone 50 mg PO BEDTIME 04/16/19 04/16/19 Previous Rx's Medication Instructions Recorded loperamide 1 mg/5 mL oral liquid 1 mg PO BID PRN #118 ml 09/15/18 amoxicillin-pot clavulanate 1 tab PO Q12H #20 tab 04/16/19 [Augmentin] omeprazole 20 mg capsule,delayed 20 mg PO DAILY #90 cap 04/24/19 release citalopram 20 mg tablet 20 mg PO QPM #90 tab 05/13/19 doxycycline hyclate 100 mg PO BID #14 cap 06/07/19 levothyroxine 50 mcg tablet 50 mcg PO DAILY #90 tab 07/16/19 Allergies Allergy/AdvReac Type Severity Reaction Status Date / Time glimepiride [GLIMEPIRIDE] Allergy Unknown UNKNOWN Verified 10/06/18 15:02 Sulfa (Sulfonamide AdvReac Severe hives Verified 10/06/18 15:02 Antibiotics) [SULFA (SULFONAMIDE ANTIBIOTICS)] metformin [METFORMIN] AdvReac Unknown DIARRHEA Verified 10/06/18 15:02 Review of Systems Review of Systems ROS Unobtainable: Unobtainable due to mental status/LOC Patient History Medical History Chronic venous stasis (Resolved) Dementia (Acute) History of anxiety (Chronic) History of Whitt's esophagus (Chronic) History of chickenpox (Resolved) History of colon polyps (Chronic) History of depression (Chronic) History of diabetes mellitus (Chronic) History of diverticulitis (Chronic) History of gastroesophageal reflux (GERD) (Chronic) History of hemorrhoids (Chronic) History of hyperlipidemia (Chronic) History of hypertension (Chronic) History of hypothyroidism (Chronic) History of IBS (Chronic) History of incontinence of feces (Chronic) History of measles (Resolved) History of osteoporosis (Chronic) History of peripheral neuropathy (Chronic) History of restless legs syndrome (Chronic) History of urinary incontinence (Chronic) Scoliosis (Chronic) Surgical History History of bowel resection History of thyroidectomy History of vein stripping (Resolved) Status post appendectomy Status post arthroscopy Status post bunionectomy Status post endoscopy Status post hammer toe correction Status post rotator cuff repair Family History Father CAD (coronary artery disease) Diabetes mellitus Mother Hypertension CAD (coronary artery disease) Sister Diabetes mellitus Social History marital status: household members: spouse Smoking Status: Former smoker alcohol intake: former substance use type: does not use Family History Father CAD (coronary artery disease) Diabetes mellitus Mother Hypertension CAD (coronary artery disease) Sister Diabetes mellitus Social History marital status: household members: spouse Smoking Status: Former smoker alcohol intake: former substance use type: does not use Substance Use Type: does not use Exam Initial Vital Signs Initial Vital Signs: Vital Signs Temperature 97.8 F 08/09/19 11:06 Pulse Rate 67 08/09/19 11:06 Respiratory Rate 20 08/09/19 11:06 Blood Pressure 142/64 H 08/09/19 11:06 Pulse Oximetry 78 L 08/09/19 11:06 Const General: cooperative Nutritional Appearance: well nourished and thin Orientation: alert and awake HENMT Head: normocephalic and atraumatic Ears: TM's normal bilaterally Nose: external nose normal and No nasal discharge Face and sinus: face symmetric and No dry mucous membranes Mouth: oral mucosae normal and moist mucous membranes Teeth and gingiva: dentition normal Eyes General: appearance normal, both eyes and all related structures Eyelids: eyelids normal Conjunctivae: conjunctivae normal Sclera: sclerae normal Pupils: PERRL EOM: EOM intact bilaterally Neck Neck: normal visual inspection, trachea midline, No lymphadenopathy, No midline deformity and No JVD Lymphatic: No lymphedema Chest Chest: normal inspection of the chest Resp Effort & Inspection: normal respiratory effort, able to speak in complete sentences, no respiratory distress and no use of accessory muscles Auscultation: clear to auscultation bilaterally, no rales, no rhonchi and no wheezes Cardio Rate: regular rate Rhythm: regular rhythm Heart Sounds: no click, no gallops, no murmurs and no rubs Pulses: normal peripheral pulses GI Inspection: non-distended Palpation: soft, no hepatosplenomegaly, No guarding, No pulsatile mass and No tender Back/Spine/Pelvis Back: No CVA tenderness Cervical Spine: cervical ROM normal and No pain with cervical ROM Thoracic/Lumbar Spine: thoracic and lumbar spine normal to inspection Skin General: no rashes or lesions noted, No jaundice and No petechiae Neuro General: alert, awake and no focal motor deficits Speech: speech normal Extrem General: full ROM, no clubbing, cyanosis or edema, no pedal edema and no calf tenderness Psych Appearance: well kempt Mental Status: mental status grossly normal Attitude: cooperative Thought Content: normal and suicidality Judgment: judgment good Course Course Course Narrative: The patient was in no distress on arrival in the emergency department. Her initial oxygen saturation was found to be 78% on room air, despite her clear breath sounds, but quickly al to the mid 90s on room air, where it stayed throughout the patient's stay in the emergency department. Chest x-ray was performed on the patient, and showed no acute findings. Chronic markings were unchanged from previous x-ray. The patient is DNR with comfort measures only, and I did not feel further intervention was indicated. The patient was found to be comfortable and in no respiratory distress, with normal oxygen saturation on room air. I did feel the patient was stable for discharge home. Instructions have been provided to the patient's care facility regarding symptomatic management, follow-up, and the usual indications for return. Orders Ordered: ED Orders 08/09/19 11:10 XR chest 1V Stat Vital Signs Vital signs: Vital Signs - 8 hr 08/09/19 12:00 08/09/19 12:15 08/09/19 13:11 Pulse Rate 66 67 66 Respiratory Rate 11 L 14 12 Blood Pressure [Right Arm] 123/71 120/68 115/65 Pulse Oximetry 93 95 95 MDM - SOB/Dyspnea Medical Records Attestation: I reviewed the patient's medical records. Imaging Data Chest x-ray: Radiologist's impression: PROCEDURE: XR CHEST 1V INDICATIONS: dyspnea TECHNIQUE: One view of the chest was acquired. COMPARISON: [facility], , XR CHEST 1V, 06/07/2019, 7:08. FINDINGS: Surgical changes and devices: None. Lungs and pleura: Persistent regions of consolidation the right upper lung. No pleural effusion or pneumothorax. Mediastinum: Mediastinal contours appear unremarkable. Heart size is normal. Bones and chest wall: No suspicious bony lesions. Unchanged remote healed left-sided rib fracture. Degenerative change of the spine. Overlying soft tissues appear unremarkable. IMPRESSION: Persistent regions of consolidation in the right upper lung in the same region as on 06/07/2019. Consider nonurgent followup imaging with CT of the chest. Dictated by: Niraj Prather M.D. on 08/09/2019 at 10:57 Approved by: Niraj Prather M.D. on 08/09/2019 at 11:00 Discharge Plan Departure Patient Disposition: Home Clinical Impression: Acute dyspnea Discharge Date/Time: 08/09/19 14:20 Instructions: DI for Shortness of Breath Activity Restrictions/Additional Instructions: Deja pearson x-ray does not show any acute findings, and the chronic findings are unchanged. Her oxygen saturation on room air here in the emergency department has been consistently in the mid 90s. Please have her follow up with her primary care provider to determine whether she needs to have as needed oxygen at home. This cannot be ordered from the emergency department, and she does not meet criteria for admission today. Prescriptions: No Action acetaminophen 650 MG tablet extended release 650 mg PO TID PRN (Reason: pain) Qty: 0 RF: 0 loperamide 1 mg/5 mL liquid 1 mg PO BID PRN (Reason: loose stool) Qty: 118 RF: 1 omeprazole 20 mg capsule,delayed release(DR/EC) 20 mg PO DAILY Qty: 90 RF: 3 citalopram [Celexa] 20 mg tablet 20 mg PO QPM Qty: 90 RF: 3 levothyroxine 50 mcg tablet 50 mcg PO DAILY Qty: 90 RF: 1 (DME) blood sugar diagnostic strip RF: 0 doxycycline hyclate 100 mg capsule 100 mg PO BID Qty: 14 RF: 0 sennosides [senna] 8.6 mg Tablet 8.6 mg PO BID RF: 0 trazodone 50 mg Tablet 50 mg PO BEDTIME RF: 0 trazodone 50 mg Tablet 25 mg PO QAM RF: 0 potassium chloride 20 mEq tablet,ER particles/crystals 20 meq PO BID RF: 0 lorazepam 0.5 mg Tablet 0.5 mg PO Q2H PRN (Reason: anxiety/dyspnea) RF: 0 magnesium hydroxide [Milk of Magnesia] 400 mg/5 mL Suspension 60 ml PO BEDTIME RF: 0 furosemide 80 mg Tablet 80 mg PO DAILY RF: 0 lisinopril 10 mg tablet 10 mg PO DAILY RF: 0 docusate sodium 100 mg Capsule 100 mg PO DAILY RF: 0 gabapentin 300 mg Capsule 300 mg PO DAILY RF: 0 methadone 5 mg tablet 5 mg PO Q12H RF: 0 ondansetron 4 mg Tablet,Disintegrating 4 mg PO Q4H PRN (Reason: Nausea And Vomiting) RF: 0 quetiapine 50 mg tablet 50 mg PO BID RF: 0 CeraVe Cream 1 applic topical BID RF: 0 Systane Balance 0.6 % Drops 1 drp ophthalmic (eye) DIRECTED RF: 0 morphine concentrate 20 mg/mL Syringe 0.25 ml SUBLINGUAL Q6H PRN (Reason: pain/dyspnea) RF: 0 Soothe Night Time Lubricant 1 applic ophthalmic (eye) BEDTIME RF: 0 quetiapine 25 mg tablet 25 mg PO BEDTIME RF: 0 ropinirole [Requip] 0.25 mg tablet 0.25 mg PO BEDTIME RF: 0 amoxicillin-pot clavulanate [Augmentin] 875-125 mg tablet 1 tab PO Q12H Qty: 20 RF: 0 Referrals: Dorina Santos DO [Primary Care Provider] -
[2019-08-09 12:00] VITALS: BP 123/71; PULSE 66; RESP 11; O2SAT 93
[2019-08-09 12:15] VITALS: BP 120/68; PULSE 67; RESP 14; O2SAT 95
[2019-08-09 13:11] VITALS: BP 115/65; PULSE 66; RESP 12; O2SAT 95
== END 2019-08-09 14:20 | disposition home or self-care (01) ==
PROVIDERS: Emergency Provider Emergency Medicine; PCP Family Medicine
DX: R06.00 Dyspnea, unspecified (principal)
CPT/HCPCS: 71045; 93005; 93041; 99283; 99284